=== PATIENT | female | born 1945 | race Caucasian/White ===

== ENCOUNTER 2025-07-26 23:48 | Observation (INO) | payer MEDICARE, OTHER, SELFPAY ==
--- OUTSIDE RECORDS SUMMARY | 2024-03-04 08:30 | XMS_ITS ---
Author Organization [facility] Address [address] [place] [address] Care Team Providers Care Biomedical Scientist Name Role Phone Crystal Garcia APRN Primary Care Provider Unava Gustavo Hubbard Unavailable [phone] Encounters Encounter Location Date Provider Diagnosis [facility] [address] [place] [address], [place] [address] 03/04/2024 Gustavo Silvacailin Plan Of Treatment Next Appt Details Provider Name:Gustavodennis King , 09/01/2025 01:00:00 PM, [address] [place] [address], [place], [address], Progress Notes * LAVONNE BERRIOS DDOB:[birth year] (80 yo F)Acc No.[id number]:03/04/2024 Patient: Yinka SAVANAHSHAUNLAVONNE Provider: Rodger King MD :1945 A ge:78 Y S ex:Female Date:03/04/2024 Address:[address], [place] Pcp:Crystal Garcia APRN Billing Information: * Procedure Codes: * Electronic signature of Pamella King MD on 07/26/2025 at 11:57 PM SALES COMMUNICATIONS MANAGER Sign off status: Pending * Provider: Rodger King MD Date: 0 03/04/2024 Generated for Coral brito/Azucena/Abhinav on: 1 09/25/2024 11:57 PM SALES COMMUNICATIONS MANAGER
--- OUTSIDE RECORDS SUMMARY | 2024-03-04 08:30 | XMS_ITS ---
Author Organization [facility] Address [address] [place] [address] Care Team Providers Care Manager Of Internal Name Role Phone Crystal Garcia APRN Primary Care Provider Unava Gustavo Hubbard Unavailable [phone] Encounters Encounter Location Date Provider Diagnosis [facility] [address] [place] [address], [place] [address] 03/04/2024 Gustavo Silvacailin Plan Of Treatment Next Appt Details Provider Name:Gustavodennis King , 09/01/2025 01:00:00 PM, [address] [place] [address], [place], [address], Progress Notes * LAVONNE BERRIOS DDOB:[birth year] (80 yo F)Acc No.[id number]:03/04/2024 Patient: Yinka SAVANAHSHAUNLAVONNE Provider: Rodger King MD :1945 A ge:78 Y S ex:Female Date:03/04/2024 Address:[address], [place] Pcp:Crystal Garcia APRN Billing Information: * Procedure Codes: * Electronic signature of Pamella King MD on 07/27/2025 at 07:57 AM SECURITY CONTROL CENTER OPERATOR Sign off status: Pending * Provider: Rodger King MD Date: 0 03/04/2024 Generated for Coral brito/Azucena/Abhinav on: 1 09/26/2024 07:57 AM SECURITY CONTROL CENTER OPERATOR
--- OUTSIDE RECORDS SUMMARY | 2024-03-04 09:15 | XMS_ITS ---
Author Organization [facility] Address [address] [facility] [place] [address] Care Team Providers Care Phlebotomy Supervisor Name Role Phone Crystal Garcia APRN Primary Care Provider Unava Gustavo Hubbard Unavailable [phone] REASON FOR VISIT 6M F/U W/ECHO PER OLYA OV 10/03/23 TD Encounters Encounter Location Date Provider Diagnosis [facility] [address] [place] [address] 03/04/2024 Gustavo King Plan Of Treatment Next Appt Details Provider Name:Gustavo King , 09/01/2025 01:00:00 PM, [address] [place], [address], Progress Notes * LAVONNE BERRIOS DDOB:[birth year] (80 yo F)Acc No.[id number]:03/04/2024 Progress Notes Patient: Yinka SAVANAHSHAUNLAVONNE Provider: Rodger King MD :1945 A ge:78 Y S ex:Female Date:03/04/2024 Address:[address], [place] Pcp:Crystal Garcia APRN Subjective: * Chief Complaints: * 6 M F/U W/ECHO PER OLYA OV 10/03/23 TD Billing Information: * Procedure Codes: * Electronic signature of Pamella King MD on 07/27/2025 at 07:57 AM THERMOMETER MAKER Sign off status: Pending * Provider: Rodger King MD Date: 0 03/04/2024 Generated for Coral brito/Azucena/Abhinav on: 1 09/26/2024 07:57 AM THERMOMETER MAKER
--- OUTSIDE RECORDS SUMMARY | 2024-03-04 09:15 | XMS_ITS ---
Author Organization [facility] Address [address] [place] [address] Care Team Providers Care Developmental Behavioral Physician Name Role Phone Crystal Garcia APRN Primary Care Provider Unava Gustavo Hubbard Unavailable [phone] REASON FOR VISIT 6M F/U W/ECHO PER OLYA OV 10/03/23 TD Encounters Encounter Location Date Provider Diagnosis [facility] [address] [place] [address] 03/04/2024 Gustavo King Plan Of Treatment Next Appt Details Provider Name:Gustavo King , 09/01/2025 01:00:00 PM, [address] [place], [address], Progress Notes * LAVONNE BERRIOS DDOB:[birth year] (80 yo F)Acc No.[id number]:03/04/2024 Progress Notes Patient: Yinka SAVANAHSHAUNLAVONNE Provider: Rodger King MD :1945 A ge:78 Y S ex:Female Date:03/04/2024 Address:[address], [place] Pcp:Crystal Garcia APRN Subjective: * Chief Complaints: * 6 M F/U W/ECHO PER OLYA OV 10/03/23 TD Billing Information: * Procedure Codes: * Electronic signature of Pamella King MD on 07/26/2025 at 11:56 PM SUPERVISOR PHOTOENGRAVING Sign off status: Pending * Provider: Rodger King MD Date: 0 03/04/2024 Generated for Coral brito/Azucena/Abhinav on: 1 09/25/2024 11:56 PM SUPERVISOR PHOTOENGRAVING
--- OUTSIDE RECORDS SUMMARY | 2024-04-21 05:00 | XMS_ITS ---
Author Organization [facility] Address [address] [place] [address] Care Team Providers Care Web Development Manager Name Role Phone Crystal Garcia APRN Primary Care Provider Unava Gustavo Hubbard Unavailable [phone] Encounters Encounter Location Date Provider Diagnosis [facility] [address] [place] [address], [place] [address] 04/21/2024 Gustavo King Plan Of Treatment Next Appt Details Provider Name:Gustavo King , 09/01/2025 01:00:00 PM, [address] [place] [address], [place], [address], Progress Notes * LAVONNE BERRIOS DDOB:[birth year] (80 yo F)Acc No.[id number]:04/21/2024 Patient: Yinka LAVONNE CLINE Provider: Rodger King MD :1945 A ge:79 Y S ex:Female Date:04/21/2024 Address:[address], [place] Pcp:Crystal Garcia APRN Check In:11:56 AM CSTCheck O ut:12:23 PM IC DESIGN ENGINEER * Electronic signature of Pamella King MD on 07/27/2025 at 07:57 AM IC DESIGN ENGINEER Sign off status: Pending * Provider: Rodger King MD Date: 0 04/21/2024 Generated for Coral brito/Azucena/Abhinav on: 09/26/2024 07:57 AM IC DESIGN ENGINEER
--- OUTSIDE RECORDS SUMMARY | 2024-04-21 05:00 | XMS_ITS ---
Author Organization [facility] Address [address] [place] [address] Care Team Providers Care Auricular Acupuncturist Name Role Phone Crystal Garcia APRN Primary Care Provider Unava Gustavo Hubbard Unavailable [phone] Encounters Encounter Location Date Provider Diagnosis [facility] [address] [place] [address], [place] [address] 04/21/2024 Gustavo King Plan Of Treatment Next Appt Details Provider Name:Gustavo King , 09/01/2025 01:00:00 PM, [address] [place] [address], [place], [address], Progress Notes * LAVONNE BERRIOS DDOB:[birth year] (80 yo F)Acc No.[id number]:04/21/2024 Patient: Yinka LAVONNE CLINE Provider: Rodger King MD :1945 A ge:79 Y S ex:Female Date:04/21/2024 Address:[address], [place] Pcp:Crystal Garcia APRN Check In:11:56 AM CSTCheck O ut:12:23 PM LANGUAGE ARTS TEACHER * Electronic signature of Pamella King MD on 07/26/2025 at 11:56 PM LANGUAGE ARTS TEACHER Sign off status: Pending * Provider: Rodger King MD Date: 0 04/21/2024 Generated for Coral brito/Azucena/Abhinav on: 1 09/25/2024 11:56 PM LANGUAGE ARTS TEACHER
--- OUTSIDE RECORDS SUMMARY | 2024-04-22 08:30 | XMS_ITS ---
Author Organization [facility] Address [address] [place] [address] Care Team Providers Care Secondary Art Teacher Name Role Phone Crystal Garcia APRN Primary Care Provider UnaGustavo Guerra Unavailable [phone] REASON FOR VISIT Echocardiogram: Test takes 30 minutes Encounters Encounter Location Date Provider Diagnosis [facility] [address] [place] [address], [place] [address] 04/22/2024 Gustavo King Plan Of Treatment Next Appt Details Provider Name:Gustavodennis Silvacailin , 09/01/2025 01:00:00 PM, [address] [place], [address], Progress Notes * LAVONNE BERRIOS DDOB:[birth year] (80 yo F)Acc No.[id number]:04/22/2024 Patient: Yinka LAVONNE CLINE Provider: Rodger King MD :1945 A ge:79 Y S ex:Female Date:04/22/2024 Address:[address], [place] Pcp:Crystal Garcia APRN Subjective: * Chief Complaints: * E chocardiogram: Test takes 30 minutes * Electronic signature of Pamella King MD on 07/27/2025 at 07:58 AM CHEF INSTRUCTOR Sign off status: Pending * Provider: Rodger King MD Date: 0 04/22/2024 Generated for Coral brito/Azucena/Abhinav on: 09/26/2024 07:58 AM CHEF INSTRUCTOR
--- OUTSIDE RECORDS SUMMARY | 2024-04-22 08:30 | XMS_ITS ---
Author Organization [facility] Address [address] [place] [address] Care Team Providers Care Goodwill Representative Name Role Phone Crystal Garcia APRN Primary Care Provider UnaGustavo Guerra Unavailable [phone] REASON FOR VISIT Echocardiogram: Test takes 30 minutes Encounters Encounter Location Date Provider Diagnosis [facility] [address] [place] [address], [place] [address] 04/22/2024 Gustavo King Plan Of Treatment Next Appt Details Provider Name:Gustavodennis Silvacailin , 09/01/2025 01:00:00 PM, [address] [place], [address], Progress Notes * LAVONNE BERRIOS DDOB:[birth year] (80 yo F)Acc No.[id number]:04/22/2024 Patient: Yinka LAVONNE CLINE Provider: Rodger King MD :1945 A ge:79 Y S ex:Female Date:04/22/2024 Address:[address], [place] Pcp:Crystal Garcia APRN Subjective: * Chief Complaints: * E chocardiogram: Test takes 30 minutes * Electronic signature of Pamella King MD on 07/26/2025 at 11:57 PM MERCHANDISING EXECUTION ASSOCIATE Sign off status: Pending * Provider: Rodger King MD Date: 0 04/22/2024 Generated for Coral brito/Azucena/Abhinav on: 1 09/25/2024 11:57 PM MERCHANDISING EXECUTION ASSOCIATE
--- OUTSIDE RECORDS SUMMARY | 2024-05-29 08:15 | XMS_ITS ---
Author Organization [facility] Address [address] [place] [address] Care Team Providers Care Care Provider Name Role Phone Crystal Garcia APRN Primary Care Provider UnaGustavo Guerra Unavailable [phone] REASON FOR VISIT PD F/U, SARAIA 03/27/24 Encounters Encounter Location Date Provider Diagnosis [facility] [address] [place] [address] 05/29/2024 Gustavo King Plan Of Treatment Next Appt Details Provider Name:Gustavo King , 09/01/2025 01:00:00 PM, [address] [place], [address], Progress Notes * LAVONNE BERRIOS DDOB:[birth year] (80 yo F)Acc No.[id number]:05/29/2024 Progress Notes Patient: Yinka LAVONNE CLINE Provider: Rodger King MD :1945 A ge:79 Y S ex:Female Date:05/29/2024 Address:[address], [place] Pcp:Crystal Garcia APRN Subjective: * Chief Complaints: * P D F/U, JLA 03/27/24 Care Plan Details* * Electronic signature of Patpushpa ick Tobbia , MD on 07/26/2025 at 11:56 PM TIMBER SELECTOR Sign off status: Pending * Provider: Rodger King MD Date: 0 05/29/2024 Generated for Coral brito/Azucena/Abhinav on: 09/25/2024 11:56 PM TIMBER SELECTOR
--- OUTSIDE RECORDS SUMMARY | 2024-05-29 08:15 | XMS_ITS ---
Author Organization [facility] Address [address] [place] [address] Care Team Providers Care Dredge Boat Engineer Name Role Phone Crystal Garcia APRN Primary Care Provider UnaGustavo Guerra Unavailable [phone] REASON FOR VISIT PD F/U, SARAIA 03/27/24 Encounters Encounter Location Date Provider Diagnosis [facility] [address] [place] [address] 05/29/2024 Gustavo King Plan Of Treatment Next Appt Details Provider Name:Gustavo King , 09/01/2025 01:00:00 PM, [address] [place], [address], Progress Notes * LAVONNE BERRIOS DDOB:[birth year] (80 yo F)Acc No.[id number]:05/29/2024 Progress Notes Patient: Yinka LAVONNE CLINE Provider: Rodger King MD :1945 A ge:79 Y S ex:Female Date:05/29/2024 Address:[address], [place] Pcp:Crystal Garcia APRN Subjective: * Chief Complaints: * P D F/U, JLA 03/27/24 Care Plan Details* * Electronic signature of Patpushpa ick Tobbia , MD on 07/27/2025 at 07:56 AM RAMP LEAD Sign off status: Pending * Provider: Rodger King MD Date: 0 05/29/2024 Generated for Coral brito/Azucena/Abhinav on: 09/26/2024 07:56 AM RAMP LEAD
--- OUTSIDE RECORDS SUMMARY | 2025-04-21 05:00 | XMS_ITS ---
Author Organization [facility] Address [address] [place] [address] Care Team Providers Care Manager Software Development Name Role Phone Crystal Garcia APRN Primary Care Provider Unava Gustavo Hubbard Unavailable [phone] Encounters Encounter Location Date Provider Diagnosis [facility] [address] [place] [address], [place] [address] 04/21/2025 Gustavo Silvacailin Plan Of Treatment Next Appt Details Provider Name:Gustavodennis King , 09/01/2025 01:00:00 PM, [address] [place] [address], [place], [address], Progress Notes * LAVONNE BERRIOS DDOB:[birth year] (80 yo F)Acc No.[id number]:04/21/2025 Patient: Yinka LAVONNE CLINE Provider: Rodger King MD :1945 A ge:80 Y S ex:Female Date:04/21/2025 Address:[address], [place] Pcp:Crystal Garcia APRN Billing Information: * Procedure Codes: * Electronic signature of Pamella King MD on 07/26/2025 at 11:56 PM INSTALLATION COORDINATOR Sign off status: Pending * Provider: Rodger King MD Date: 0 04/21/2025 Generated for Coral brito/Azucena/Abhinav on: 1 09/25/2024 11:56 PM INSTALLATION COORDINATOR
--- OUTSIDE RECORDS SUMMARY | 2025-04-21 05:00 | XMS_ITS ---
Author Organization [facility] Address [address] [place] [address] Care Team Providers Care Manager Emergency Department Name Role Phone Crystal Garcia APRN Primary Care Provider Unava Gustavo Hubbard Unavailable [phone] Encounters Encounter Location Date Provider Diagnosis [facility] [address] [place] [address], [place] [address] 04/21/2025 Gustavo Silvacailin Plan Of Treatment Next Appt Details Provider Name:Gustavodennis King , 09/01/2025 01:00:00 PM, [address] [place] [address], [place], [address], Progress Notes * LAVONNE BERRIOS DDOB:[birth year] (80 yo F)Acc No.[id number]:04/21/2025 Patient: Yinka LAVONNE CLINE Provider: Rodger King MD :1945 A ge:80 Y S ex:Female Date:04/21/2025 Address:[address], [place] Pcp:Crystal Garcia APRN Billing Information: * Procedure Codes: * Electronic signature of Pamella King MD on 07/27/2025 at 07:56 AM EMBRYOLOGY TEACHER Sign off status: Pending * Provider: Rodger King MD Date: 0 04/21/2025 Generated for Coral brito/Azucena/Abhinav on: 1 09/26/2024 07:56 AM EMBRYOLOGY TEACHER
[2025-07-26 23:49] VITALS: BP 178/76; PULSE 92; RESP 17; TEMP 36.3; O2SAT 96; BMI 22.1
--- NOTE | 2025-07-26 23:56 | ECG_ITS ---
[facility] Test Date: 2025-07-26 Pat Name: Treva Day Department: Room: Gender: Female Hand Straightener: : 1945 Requested By: Casey Lee Order Number: [id number] Ifeanyi MD: Alonso Higuera M.D. Measurements Intervals Leighton Rate: 90 P: 79 WI: 234 QRS: -10 QRSD: 122 T: 185 QT: 350 QTc: 430 Interpretive Statements SINUS RHYTHM WITH FIRST DEGREE AV BLOCK LEFT VENTRICULAR HYPERTROPHY AND ST-T CHANGE [VOLTAGE CRITERIA PLUS ST/T ABNORMALITY] No previous ECG available for comparison Electronically Signed On 07-27-2025 10:40:42 ROOFING SUPERVISOR by Alonso Higuera M.D. [email or web address]
--- OUTSIDE RECORDS SUMMARY | 2025-07-26 23:56 | XMS_ITS | Clinical Summary ---
Author Organization [facility] Address [address] [place] [address] Phone Care Team Providers Care Assistant Executive Housekeeper Name Role Phone Unavailable Primary Care Provider Unavailabl e Allergies Active Allergy Reactions Criticality Noted Date Comments Pomegranate Rash,Itching Low 11/26/2024 Medications atorvastatin (LIPITOR) 80 mg tablet Take 1 Tablet by mouth daily. 07/22/2024 Active bumetanide (BUMEX) 1 mg tablet Take 1 Tablet by mouth 2 times daily. 07/25/2024 Active carvediloL (COREG) 3.125 mg tablet Take 3.125 mg by mouth 2 times daily with meals. 07/22/2024 Active Jardiance 25 mg tablet Take 1 Tablet by mouth daily. 07/22/2024 Active midodrine (PROAMATINE) 10 mg Tablet Take 1 Tablet by mouth 2 times daily. 07/22/2024 Active pantoprazole (PROTONIX) 40 mg Tablet, Delayed Release (E.C.) Take 1 Tablet by mouth daily. 07/22/2024 Active sacubitriL-vals milena (Entresto) 24-26 mg Tablet Take by mouth 2 times daily. Active aspirin (ECOTRIN EC) 81 mg Tablet, Delayed Release (E.C.) Take 81 mg by mouth daily. Active HYDROcodone-alice taminophen (NORCO) 7.5-325 mg TabletIndicatio ns:Post-op pain Take 1 Tablet by mouth every 4 hours as needed for Pain, Moderate. Max Daily Amount: 6 Tablets 20 Tablet 11/28/2024 Active Active Problems Problem Noted Date Diagnosed Date ICD (implantable cardioverter-defibrillator) in place 11/28/2024 ASHD (arteriosclerotic heart disease) 11/28/2024 CHF (congestive heart failure) 11/06/2024 Encounters Date Type Department Care Team Description 07/21/2025 External Device Data STL ABSTRACTION Provider, Abstract 07/16/2025 8:00 AM PHOTOGRAPHIC EQUIPMENT INSPECTOR Procedure visit [facility] [address] [place] [address] Miranda Jeffers MD Congestive heart failure, unspecified HF chronicity, unspecified heart failure type (CMS/HCC) (Primary Dx); Ischemic dilated cardiomyopathy (CMS/HCC); Automatic implantable cardioverter-defibril lator in situ 05/26/2025 External Device Data STL ABSTRACTION Provider, Abstract from Last 3 Months Social History Tobacco Use Types Packs/Day Years Used Date Smoking Tobacco: Former Cigarettes Smokeless Tobacco: Never Tobacco Cessation:Counseling Given: Not Answered Alcohol Use Standard Drinks/Week Comments Never 0 (1 standard drink = 0.6 oz pur e alcohol) Feeling Safe Answer Date Recorded Are you in a relationship wi th someone who hurts you emotionally and/or physically? Patient unable to answer 11/26/2024 Food Insecurity Answer Date Recorded Patient needs follow up regardin 12/25/2024 Transportation Needs Answer Date Record ed Patient needs follow up regardin 12/25/2024 Housing Stability Answer Date Recorded Social/Environmental Concerns No concerns Utility Needs Answer Date Recorded Patient needs follow up regardin 12/25/2024 Comments Unknown Sex and Gender Information Value Date Recorded Sex Assigned at Not on file Legal Sex Female 8:04 AM CDT Gender Identity Not on file Sexual Orientation Not on file Last Filed Vital Signs Vital Sign Reading Time Taken Comments Blood Pressure 102/56 04/13/2025 3:34 PM CDT Pulse 78 04/13/2025 3:34 PM CDT Temperature 36.3 C (97.3 F) 11/28/2024 7:36 AM CDT Respiratory Rate 16 11/28/2024 7:36 AM CDT Oxygen Saturation 98% 04/13/2025 3:34 PM CDT Inhaled Oxygen Concentration - - Weight 57.6 kg (127 lb) 04/13/2025 3:34 PM CDT Height 157.5 cm (5' 2 ) 04/13/2025 3:34 PM CDT Body Mass Index 23.23 04/13/2025 3:34 PM CDT Plan of Treatment Upcoming Encounters Date Type Department Care Team (Late st Contact Info) Description 10/15/2025 3:00 PM PHOTOGRAPHIC EQUIPMENT INSPECTOR Office Visit [facility] [address] [facility] [address] [place] [address] Miranda Jeffers MD [address] [place] [address] Cody Fregoso, CHANA [address] [facility] [address] [place] [address] 01/14/2026 8:00 AM CDT Procedure visit [facility] [address] [facility] [address] [place] [address] Miranda Jeffers MD [address] [facility] [address] [place] [address] Health Maintenance Due Date Last Done Comments DIABETES ANNUAL FOOT EXAM 1965 DIABETES ANNUAL RETINAL EXAM 1965 DIABETES MICROALBUMIN ANNUAL SCREEN 1965 LDL CHOLESTEROL ANNUAL 1965 DTAP/TDAP/TD VACCINES (1 - Tdap) 1966 PNEUMOCOCCAL VACCINE 50+ YEA RS (1 of 2 - PCV) 1966 ZOSTER VACCINE (1 of 2) 1997 OSTEOPOROSIS SCREENING 2012 RSV VACCINE (60+ or ) (1 - 1-dose 75+ series) 2022 INFLUENZA VACCINE (#1) 2025 10/23/2023, 2020 COVID-19 Vaccine (2 - 2024- season) 05/04/202502/2021 DIABETES HBA1C Q 6 MONTHS 08/15/2025 02/13/2025 Medical Devices Implanted Type Area Welder/Fabricator Device Identifier Shelf Expiration Date Model / Serial / Lot Defib Icd Collins Xt Vr Mri [id number] Sngl Chmbr Surescan [id number] - [id number] Implanted:Qty: 1 on 11/27/2024 by Miranda Jeffers MD at [facility] Defibrillator Left: Chest Wall [employer]- CARD RHYTHM MGMT [id number] 05/17/2025 [id number] / [id number] / Lead Sprint Quattro Secure 55cm [id number] - Csc - [id number] Implanted:Qty: 1 on 11/27/2024 by Miranda Jeffers MD at [facility] Lead Left: Chest Wall [employer]- CRM - BULK BUY [id number] 06/09/2026 [id number] / [id number] / Procedures Procedure Name Priority Date/Time Associated Diagnosis Comments AL REM INTERROG PM/LDLS PM/IDS <90 D TECH REVIEW Routine 07/16/2025 3:58 AM PHOTOGRAPHIC EQUIPMENT INSPECTOR Congestive heart failure, unspecified HF chronicity, unspecified heart failure type (CMS/HCC) Ischemic dilated cardiomyopathy (CMS/HCC) Automatic implantable cardioverter-defibril lator in situ AL INTERROGATION EVAL REMOTE </90 D 1/2/STEEL DETAILER LD DFB Routine 07/16/2025 3:58 AM PHOTOGRAPHIC EQUIPMENT INSPECTOR Congestive heart failure, unspecified HF chronicity, unspecified heart failure type (CMS/HCC) Ischemic dilated cardiomyopathy (CMS/HCC) Automatic implantable cardioverter-defibril lator in situ from Last 3 Months Results * AL INTERROGATION EVAL REMOTE </90 D 1/2/STEEL DETAILER LD DFB, AL REM INTERROG PM/LDLS PM/IDS <90 D TECHREVIEW (07/16/2025 3:58 AM PHOTOGRAPHIC EQUIPMENT INSPECTOR) 07/16/2025 3:58 AM PHOTOGRAPHIC EQUIPMENT INSPECTOR Narrative INTERFACE SYSTEM - 07/16/2025 2:46 PM PHOTOGRAPHIC EQUIPMENT INSPECTOR Remote Transmission Report Date of Procedure: July 16, 2025 Events: since 04/13/2025 none Comments: Routine [facility] remote transmission reveals normal single chamber ICD function with stable available threshold and impedance trends. Presenting EGM indicates ventricular sensing, regular rhythm. Follow-up in office as scheduled in October. Then continue 3 month remotes. See attached report for details. Procedure Note Provider, Historical - 07/16/2025 Remote Transmission Report Date of Procedure: July 16, 2025 Events: since 04/13/2025 none Comments: Routine [facility] remote transmission reveals normal single chamber ICDfunction with stable available threshold and impedance trends. Presenting EGM indicates ventricular sensing, regular rhythm. Follow-up in office as scheduled in October. Then continue 3 monthremotes. See attached report for details. us Miranda Jeffers MD CARDIAC SERVICES ORDERABLES E dited Result - Final INTERFACE SYSTEM Refer to clinic/hospital department from Last 3 Months Insurance [facility] Advance Directives For more information, please contact: [phone] * Full Code (Latest Code Status on File) Date Activated Date Inactivated Comments 11/27/2024 9:42 AM 11/28/2024 3:16 PM * Full Code Date Activated Date Inactivated Comments 11/27/2024 5:53 AM 11/27/2024 9:42 AM
--- OUTSIDE RECORDS SUMMARY | 2025-07-26 23:56 | XMS_ITS | Encounter Summary ---
Author Organization [facility] Address [address] [place] [address] Care Team Providers Care Tar Distributor Operator Name Role Phone Unavailable Primary Care Provider Unavailabl e Encounter Details Date Type Department Care Team (Late st Contact Info) Description 07/21/2025 External Device Data [place] ABSTRACTION Provider, Abstract NO ADDRESS ON FILE Social History Tobacco Use Types Packs/Day Years Used Date Smoking Tobacco: Former Cigarettes Smokeless Tobacco: Never Alcohol Use Standard Drinks/Week Comments Never 0 [...] on file Sexual Orientation Not on file documented as of this encounter Plan of Treatment Upcoming Encounters Date Type Department Care Team (Late st Contact Info) Description 10/15/2025 3:00 PM CITY COUNCILMAN Office Visit [facility] [address] [facility] [address] [place] [phone] Miranda Jeffers MD [address] [facility] [address] [place] [phone] Cody Fregoso ANP [address] [facility] [address] [place] [phone] 01/14/2026 8:00 AM CDT Procedure visit [facility] [address] [facility] [address] [place] [phone] Miranda Jeffers MD [address] [facility] [address] [place] [phone] documented as of this encounter Visit Diagnoses Not on filedocumented in this encounter
--- OUTSIDE RECORDS SUMMARY | 2025-07-26 23:57 | XMS_ITS ---
Demographics Address [address] [place] [phone] Home Phone Home Phone Phone Unavailable Preferred Language en Marital Status Unknown Methodist Affiliation Unknown Race White Ethnic Group Unknown Author Organization [facility] Care Team Providers Care Health And Physical Education Professor Name Role Phone Stan Davis Unavailable Unavailable Abbi Streeter Unavailable Unavailable Gonzales Álvarez Unavailable Unavailable Allergies and adverse reactions No Known Allergies Care Team Name Role Address Phone Organization Dates Gonzales Álvarez PCP [address] [place], [address], [place] (Office): : : [facility] 01/03/2023 - 01/05/2023 Stan aDvis [address], [place], [address], [place] (Office): : [facility] 01/03/2023 - 01/05/2023 Abbi Streeter [address], [place], [address], [place] (Office): : [facility] 01/03/2023 - 01/05/2023 Goals Section Goals Description Status Target Date LAVONNE will maintain adequ ate nutritional status as evidenced by no s/sx of malnutrition and no +/- significant weight change through review date. Active 04/04/2023 Resident will participate in activities of choice over the next review period. Active 04/04/2023 Immunizations Immunization Status Vaccine Details Vaccine Code CodeSystem Ge e Notes TB 2 Step Mantoux Skin Test completed tuberculin skin test; unspecified formulation lotNumber: [id number] expiry: 02/08/2025 Mfg: [employer] Given 0.1 ml Left Forearm intradermally Step 1 of Multi-step with next step required 98 CVX created date: 01/04/2023 consent date: 01/04/2023 administere d date: 01/04/2023 Mental Status Section Date Assessment Total Score Description 01/05/2023 CAM 0 No delirium ind icated 01/05/2023 BIMS 13 cognitively int act CAM 0 No delirium ind icated PHQ-9 06 mild depression Insurance Providers Plan of Treatment Section Interventions Intervention Code Code System Display Name Proposed D ate Problems Problem # Description Date of onset Resolved Date Code CodeSystem Concern Status 1 ATHEROSCLEROTIC HEART DISEASE OF [place] CORONARY ARTERY WITHOUT ANGINA PECTORIS 01/04/[id number] active 2 CHRONIC PAIN SYNDROME 01/04/[address] active 3 CHRONIC SYSTOLIC (CONGESTIVE) HEART FAILURE 01/04/[address] active 4 DYSPNEA, UNSPECIFIED 01/04/[address] active 5 ESSENTIAL (PRIMARY) HYPERTENSION 01/04/[address] active 6 HYPERLIPIDEMIA, UNSPECIFIED 01/04/[address] active 7 HYPOTENSION, UNSPECIFIED 01/04/[address] active 8 MUSCLE WASTING AND ATROPHY, NOT ELSEWHERE CLASSIFIED, LEFT LOWER LEG 01/04/[address] active 9 MUSCLE WASTING AND ATROPHY, NOT ELSEWHERE CLASSIFIED, RIGHT LOWER LEG 01/04/[address] active 10 MUSCLE WEAKNESS (GENERALIZED) 01/04/[address] active 11 OTHER ABNORMALITIES OF GAIT AND MOBILITY 01/04/[address] active 12 OTHER LACK OF COORDINATION 01/04/[address] active 13 PERSONAL HISTORY OF COVID-19 01/04/[address] active 14 TYPE 2 DIABETES MELLITUS WITHOUT COMPLICATIONS 01/04/[address] active 15 UNSPECIFIED SYSTOLIC (CONGESTIVE) HEART FAILURE 01/04/[address] active 16 WHEEZING 01/04/[address] active Reason for Referral No Reasons for Referral Entered Social History Social History Observation Description Start Date End Date Code Code System Current Smoking Status Tobacco smoking consumption unknown 742227017 SNOMED CT Sex Assigned At Female 1945 46769-5 [facility] Gender Identity Sexual Orientation Vital Signs Code Code System Vitals Name Values and Units Timing Information 49266-0 [facility] Pain Level Value=0.0 01/05/2023 9279-1 [facility] Respiratory Rate Value=20.0 Units=/m in 01/05/2023 8462-4 [facility] Blood Pressure-Diastolic Value=44 Un its=mmHg 01/05/2023 8480-6 [facility] Blood Pressure-Systolic Value=86 Uni ts=mmHg 01/05/2023 8310-5 [facility] Body Temperature Value=98.0 Units= F 01/05/2023 8867-4 [facility] Heart rate Onrwk=406.0 Units=/min 01/05/2023 91479-0 [facility] O2 % BldC Oximetry Value=96.0 Units= % 01/05/2023 45077-2 [facility] Weight Wlpah=805.2 Units=Lbs 01/2023 2339-0 [facility] Blood Sugar Xgkgl=794.0 Units=mg/dL 01/05/2023 8302-2 [facility] Height Value=63.0 Units=Inches 01/03/2023
--- OUTSIDE RECORDS SUMMARY | 2025-07-26 23:57 | XMS_ITS | Data Portability ---
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 Plan of Treatment Reminders Order Date Submit Date Provider Last Modified By Organization Details Last Modified Time Details Appointments None recorded. Lab microalbumi n/creatinin e, mass ratio, urine 2024 025 [facility] [address] [place], [address], 5 06:26:18 CBC w/ auto diff 2024 025 [facility] [address] [place], [address], 5 04:50:33 HbA1c (hemoglobin A1c), blood 2023 024 [facility] [address] [place], [address], 4 09:33:34 CBC w/ auto diff 2023 024 [facility] [address] [place], [address], 4 09:33:36 CMP, serum or plasma 2023 024 [facility] [address] [place], [address], 4 09:33:33 microalbumi n/creatinin e, mass ratio, urine 2023 024 [email or web address] [facility] [address] [place], [address], 4 12:08:05 urinalysis, dipstick 2023 024 [facility], [address], [place], [address], 4 14:46:56 lipid panel, serum 2023 024 [facility] [address] [place], [address], 4 09:33:33 iron + total iron-bindin g capacity (TIBC), serum 2023 024 [facility] [address] [place], [address], 4 09:33:35 ferritin, serum or plasma 2023 024 [facility] [address] [place], [address], 4 09:33:35 Referral None recorded. Procedures None recorded. Surgeries None recorded. Imaging None recorded. Medication Orders fluticasone propionate 50 mcg/actuati on nasal spray,suspe nsion 2024 025 [facility], [address], [place], [address], 5 17:04:44 amoxicillin 500 mg tablet 2024 025 [facility] [place], [address], [place], [address], 5 05:02:12 tramadol 50 mg tablet 2024 025 [facility] [place], [address], [place], [address], 5 15:13:18 dexamethaso ne sodium phosphate 4 mg/mL injection solution 2024 025 Not available 15:58:15 Kenalog 40 mg/mL suspension for injection 2024 025 [email or web address] Not available 5 11:32:33 albuterol sulfate HFA 90 mcg/actuati on aerosol inhaler 2024 025 [facility] [place], [address], [place], [address], 5 13:03:06 azithromyci n 250 mg tablet 2024 025 [facility] [place], [address], [place], [address], 5 16:02:07 guaifenesin ER 600 mg tablet, extended release 12 hr 2024 025 [facility] [place], [address], [place], [address], 5 16:02:13 Patient TargetsNo targets recorded. Patient Instructions Encounter Date Encounter Id Patient Instructions Last Modified By Organization Details Last Modified Time 08/25/2024 [id number] Patient discharged to self to home in stable condition. Follow up instructions given. [email or web address] Not available 08/25/2024 12:31:51 11/18/2024 [id number] Patient discharged to self/daughter to home in stable condition. Follow up instructions given. CCA completed during encounter today. Please see attached document. [email or web address] Not available 11/18/2024 15:49:55 11/21/2024 [id number] Patient discharged to self/family to home in stable condition. Follow up instructions given. [email or web address] Not available 11/21/2024 12:20:35 02/03/2025 [id number] Patient discharged to self/family to home in stable condition. Follow up instructions given. [email or web address] Not available 02/05/2025 11:37:47 06/01/2025 [id number] Patient discharged to self/family to home in stable condition. Follow up instructions given. [email or web address] Not available 06/02/2025 11:54:23 Reason for Referral None Reported. Results Created Date Observation Date Name Description Value Unit Range Abnormal Flag Note LastModifiedBy Organization Detail LastModifiedTime 08/25/20 24 08/26/2024 COMP METAB OLIC PANEL sodium 141 mEq/L 135-14 6 Not Available [facility] [address] [place], [address], 08/26/2024 09:33:33 08/25/20 24 08/26/2024 COMP METAB OLIC PANEL potassium 4.4 mEq/L 3.5-5. 4 Not Available [facility] [address] [place], [address], 08/26/2024 09:33:33 08/25/20 24 08/26/2024 COMP METAB OLIC PANEL chloride 102 mEq/L 95-107 Not Available [facility] [address] [place], [address], 08/26/2024 09:33:33 08/25/20 24 08/26/2024 COMP METAB OLIC PANEL carbon dioxide 25 mEq/L 19-31 Not Available [facility] [address] [place], [address], 08/26/2024 09:33:33 08/25/20 24 08/26/2024 COMP METAB OLIC PANEL anion gap 14 mEq/L 7-23 Not Available [facility] [address] [place], [address], 08/26/2024 09:33:33 08/25/20 24 08/26/2024 COMP METAB OLIC PANEL glucose non-fasting 170 mg/dL 70-139 high Not Available [facility] [address] [place], [place], [address], 08/26/2024 09:33:33 08/25/20 24 08/26/2024 COMP METAB OLIC PANEL urea nitrogen (BUN) 24 mg/dL 8-23 high Not Available [facility] [address] [place], [place], [address], 08/26/2024 09:33:33 08/25/20 24 08/26/2024 COMP METAB OLIC PANEL creatinine 1.37 mg/dL 0.60-1 .30 high Not Available [facility] [address] [place], [place], [address], 08/26/2024 09:33:33 08/25/20 24 08/26/2024 COMP METAB OLIC PANEL 2020 CKD-epi eGFR-cr 40 mL/mi n/1.7 3m'2 >59 low Not Available [facility] [address], [place], [address], 08/26/2024 09:33:33 08/25/20 24 08/26/2024 COMP METAB OLIC PANEL BUN/creatini ne ratio 18 ratio Not Available [facility] [address], [place], [address], 08/26/2024 09:33:33 08/25/20 24 08/26/2024 COMP METAB OLIC PANEL calcium total 9.9 mg/dL 8.5-10 .5 Not Available [facility] [address] [place], [address], 08/26/2024 09:33:33 08/25/20 24 08/26/2024 COMP METAB OLIC PANEL protein total 7.3 g/dL 6.1-8. 3 Not Available [facility] [address] [place], [address], 08/26/2024 09:33:33 08/25/20 24 08/26/2024 COMP METAB OLIC PANEL albumin 4.6 g/dL 3.5-5. 2 Not Available [facility] [address] [place], [address], 08/26/2024 09:33:33 08/25/20 24 08/26/2024 COMP METAB OLIC PANEL globulin 2.7 g/dL 1.7-4. 3 Not Available [facility] [address] [place], [address], 08/26/2024 09:33:33 08/25/20 24 08/26/2024 COMP METAB OLIC PANEL A/G ratio 1.7 ratio 0.9-2. 8 Not Available [facility] [address] [place], [address], 08/26/2024 09:33:33 08/25/20 24 08/26/2024 COMP METAB OLIC PANEL bilirubin total 0.3 mg/dL 0.0-1. 2 Not Available [facility] [address] [place], [address], 08/26/2024 09:33:33 08/25/20 24 08/26/2024 COMP METAB OLIC PANEL alkaline phosphatase 78 U/L 40-142 Not Available [facility] [address] [place], [address], 08/26/2024 09:33:33 08/25/20 24 08/26/2024 COMP METAB OLIC PANEL AST (SGOT) 14 U/L 9-40 Not Available [facility] [address] [place], [address], 08/26/2024 09:33:33 08/25/20 24 08/26/2024 COMP METAB OLIC PANEL ALT (SGPT) 12 U/L 5-40 Not Available [facility] [address], [place], [address], 08/26/2024 09:33:33 08/25/20 24 08/26/2024 LIPID PROFI LE cholesterol 120 mg/dL <200 Not Available [facility] [address], [place], [address], 08/26/2024 09:33:33 08/25/20 24 08/26/2024 LIPID PROFI LE triglyceride s 191 mg/dL 0-149 high Not Available [facility] [address] [place], [address], 08/26/2024 09:33:33 08/25/20 24 08/26/2024 LIPID PROFI LE HDL cholesterol 34 mg/dL >39 low Not Available [facility] [address], [place], [address], 08/26/2024 09:33:33 08/25/20 24 08/26/2024 LIPID PROFI LE LDL cholesterol 60 mg/dL <100 Not Available [facility] [address] [place], [address], 08/26/2024 09:33:33 08/25/20 24 08/26/2024 LIPID PROFI LE non HDL cholesterol 86 mg/dL <130 Not Available [facility] [address] [place], [place], [address], 08/26/2024 09:33:33 08/25/20 24 08/26/2024 LIPID PROFI LE coronary risk ratio 3.53 <4.44 Comme nt for LIPID PROFI LE Non-H DL Yecenia stero l is a homer r indic ator for cardi ovasc ular risk than LDL-C holes terol for patie nts who have incre ased trigl yceri martin or are non-f astin g. Non-H DL Yecenia stero l: < 130 mg/dL (Opti mal) < 160 mg/dL (Near Optim al/Ab ove Optim al) LDL Yecenia stero l: < 100 mg/dL (Opti mal) < 130 mg/dL (Near Optim al/Ab ove Optim al) Coron jill Risk Ratio : [place] ge for femal es < 4.44 Not Available [facility] [address] [place], [address], 08/26/2024 09:33:33 08/25/20 24 08/26/2024 HEMOG LOBIN A1C hemoglobin A1C 6.3 % 4.2-5. 6 high Not Available [facility] [address] [place], [address], 08/26/2024 09:33:34 08/25/20 24 08/26/2024 HEMOG LOBIN A1C mean glucose est 134 mg/dL Comme nt for HEMOG LOBIN A1C [facility] n Guide lines for Hgb A1c: Predi abete s/Inc rease d risk: 5.7 - 6.4 % Diagn osis of diabe linn: >= 6.5 % (with confi rmati on or appro priat e sympt oms) Assay may be affec jose r by hemog lobin opath ies (sick le cell anemi a, SC disea se, other s) or artif icial ly lower ed by decre ased red cell survi belen (hemo lytic anemi as, blood loss, etc.) . Consi kelvin alter dylan testi ng or labor atory consu ltati on. Not Available [facility] [address] [place], [address], 08/26/2024 09:33:34 08/25/20 24 08/26/2024 IRON AND TIBC iron 99 ug/dL 37-145 Not Available [facility] [address] [place], [address], 08/26/2024 09:33:35 08/25/20 24 08/26/2024 IRON AND TIBC total iron binding 292 ug/dL 250-40 0 Not Available [facility] [address] [place], [address], 08/26/2024 09:33:35 08/25/20 24 08/26/2024 IRON AND TIBC % saturation 34 % 20-50 Not Available [facility] [address] [place], [address], 08/26/2024 09:33:35 08/25/20 24 08/26/2024 PETER TIN ferritin 186 NG/mL 13-200 Not Available [facility] [address], [place], [address], 08/26/2024 09:33:35 08/25/20 24 08/26/2024 CBC WITH DIFFE RENTI AL WBC 8.8 K/uL 4.0-11 .0 Not Available [facility] [address] [place], [address], 08/26/2024 09:33:36 08/25/20 24 08/26/2024 CBC WITH DIFFE RENTI AL RBC 3.84 M/uL 4.00-5 .50 low Not Available [facility] [address] [place], [address], 08/26/2024 09:33:36 08/25/20 24 08/26/2024 CBC WITH DIFFE RENTI AL hemoglobin 11.4 g/dL 12.0-1 6.0 low Not Available [facility] [address] [place], [address], 08/26/2024 09:33:36 08/25/20 24 08/26/2024 CBC WITH DIFFE RENTI AL hematocrit 34.5 % 36.0-4 8.0 low Not Available [facility] [address] [place], [place], [address], 08/26/2024 09:33:36 08/25/20 24 08/26/2024 CBC WITH DIFFE RENTI AL MCV 89.8 fL 78.0-1 02.0 Not Available [facility] [address] [place], [place], [address], 08/26/2024 09:33:36 08/25/20 24 08/26/2024 CBC WITH DIFFE RENTI AL MCH 29.7 pg 25.0-3 5.0 Not Available [facility] [address], [place], [address], 08/26/2024 09:33:36 08/25/20 24 08/26/2024 CBC WITH DIFFE RENTI AL MCHC 33.0 g/dL 30.0-3 8.0 Not Available [facility] [address] [place], [place], [address], 08/26/2024 09:33:36 08/25/20 24 08/26/2024 CBC WITH DIFFE RENTI AL RDW 13.1 % 11.5-1 6.0 Not Available [facility] [address] [place], [place], [address], 08/26/2024 09:33:36 08/25/20 24 08/26/2024 CBC WITH DIFFE RENTI AL platelet count 268 K/uL 150-45 0 Not Available [facility] [address] [place], [place], [address], 08/26/2024 09:33:36 08/25/20 24 08/26/2024 CBC WITH DIFFE RENTI AL abs neutrophils 6.0 K/uL 1.8-7. 0 Not Available [facility] [address] [place], [place], [address], 08/26/2024 09:33:36 08/25/20 24 08/26/2024 CBC WITH DIFFE RENTI AL abs lymphocytes 1.8 K/uL 1.0-4. 0 Not Available [facility] [address] [place], [place], [address], 08/26/2024 09:33:36 08/25/20 24 08/26/2024 CBC WITH DIFFE RENTI AL abs monocytes 0.7 K/uL 0.1-1. 1 Not Available [facility] [address], [place], [address], 08/26/2024 09:33:36 08/25/20 24 08/26/2024 CBC WITH DIFFE RENTI AL abs eosinophils 0.2 K/uL 0.0-0. 5 Not Available [facility] [address], [place], [address], 08/26/2024 09:33:36 08/25/20 24 08/26/2024 CBC WITH DIFFE RENTI AL abs basophils 0.1 K/uL 0.0-0. 3 Not Available [facility] [address] [place], [address], 08/26/2024 09:33:36 08/25/20 24 08/26/2024 CBC WITH DIFFE RENTI AL abs immature grans 0.0 K/uL 0.0-0. 1 Not Available [facility] [address] [place], [address], 08/26/2024 09:33:36 08/25/20 24 08/26/2024 CBC WITH DIFFE RENTI AL neutrophils 68.3 % Not Available [facility] [address] [place], [address], 08/26/2024 09:33:36 08/25/20 24 08/26/2024 CBC WITH DIFFE RENTI AL lymphocytes 20.8 % Not Available [facility] [address] [place], [address], 08/26/2024 09:33:36 08/25/20 24 08/26/2024 CBC WITH DIFFE RENTI AL monocytes 7.8 % Not Available [facility] [address], [place], [address], 08/26/2024 09:33:36 08/25/20 24 08/26/2024 CBC WITH DIFFE RENTI AL eosinophils 2.3 % Not Available [facility] [address], [place], [address], 08/26/2024 09:33:36 08/25/20 24 08/26/2024 CBC WITH DIFFE RENTI AL basophils 0.6 % Not Available [facility] [address], [place], [address], 08/26/2024 09:33:36 08/25/20 24 08/26/2024 CBC WITH DIFFE RENTI AL immature grans 0.2 % Not Available [facility] [address], [place], [address], 08/26/2024 09:33:36 08/25/20 24 08/26/2024 CBC WITH DIFFE RENTI AL nucleated RBCs <1.0 /100_ WBCs <1 Not Available [facility] [address] [place], [address], 08/26/2024 09:33:36 08/25/20 24 08/26/2024 NO SPECI MEN RECEI KIKA test set(s) cancelled MACR Not Available [facility] [address] [place], [address], 08/26/2024 09:33:36 08/25/20 24 08/26/2024 NO SPECI MEN RECEI KIKA test cancelled 1 ALBUMI N/CREA T RATIO Not Available [facility] [address], [place], [address], 08/26/2024 09:33:36 08/25/20 24 08/26/2024 NO SPECI MEN RECEI KIKA test cancelled 2 S/W GISSELL WILL LET THEM KNOW Comme nt for NO SPECI MEN RECEI KIKA Pleas e refer to the [facility] Test [facility]le ction Manua l for speci men submi ssion guide lines . Not Available [facility] [address], [place], [address], 08/26/2024 09:33:36 11/22/19 25 11/22/2024 CBC WITH DIFFE RENTI AL WBC 9.9 K/uL 4.0-11 .0 Not Available [facility] [address], [place], [address], 11/22/2024 04:50:33 11/22/19 25 11/22/2024 CBC WITH DIFFE RENTI AL RBC 4.24 M/uL 4.00-5 .50 Not Available [facility] [address], [place], [address], 11/22/2024 04:50:33 11/22/19 25 11/22/2024 CBC WITH DIFFE RENTI AL hemoglobin 12.2 g/dL 12.0-1 6.0 Not Available [facility] [address] [place], [address], 11/22/2024 04:50:33 11/22/19 25 11/22/2024 CBC WITH DIFFE RENTI AL hematocrit 38.3 % 36.0-4 8.0 Not Available [facility] [address] [place], [address], 11/22/2024 04:50:33 11/22/19 25 11/22/2024 CBC WITH DIFFE RENTI AL MCV 90.3 fL 78.0-1 02.0 Not Available [facility] [address] [place], [address], 11/22/2024 04:50:33 11/22/19 25 11/22/2024 CBC WITH DIFFE RENTI AL MCH 28.8 pg 25.0-3 5.0 Not Available [facility] [address] [place], [address], 11/22/2024 04:50:33 11/22/19 25 11/22/2024 CBC WITH DIFFE RENTI AL MCHC 31.9 g/dL 30.0-3 8.0 Not Available [facility] [address] [place], [address], 11/22/2024 04:50:33 11/22/19 25 11/22/2024 CBC WITH DIFFE RENTI AL RDW 12.1 % 11.5-1 6.0 Not Available [facility] [address] [place], [address], 11/22/2024 04:50:33 11/22/19 25 11/22/2024 CBC WITH DIFFE RENTI AL platelet count 288 K/uL 150-45 0 Not Available [facility] [address] [place], [address], 11/22/2024 04:50:33 11/22/19 25 11/22/2024 CBC WITH DIFFE RENTI AL abs neutrophils 6.9 K/uL 1.8-7. 0 Not Available [facility] [address] [place], [address], 11/22/2024 04:50:33 11/22/19 25 11/22/2024 CBC WITH DIFFE RENTI AL abs lymphocytes 1.9 K/uL 1.0-4. 0 Not Available [facility] [address] [place], [address], 11/22/2024 04:50:33 11/22/19 25 11/22/2024 CBC WITH DIFFE RENTI AL abs monocytes 0.7 K/uL 0.1-1. 1 Not Available [facility] [address] [place], [address], 11/22/2024 04:50:33 11/22/19 25 11/22/2024 CBC WITH DIFFE RENTI AL abs eosinophils 0.4 K/uL 0.0-0. 5 Not Available [facility] [address] [place], [address], 11/22/2024 04:50:33 11/22/19 25 11/22/2024 CBC WITH DIFFE RENTI AL abs basophils 0.0 K/uL 0.0-0. 3 Not Available [facility] [address] [place], [address], 11/22/2024 04:50:33 11/22/19 25 11/22/2024 CBC WITH DIFFE RENTI AL abs immature grans 0.0 K/uL 0.0-0. 1 Not Available [facility] [address] [place], [address], 11/22/2024 04:50:33 11/22/19 25 11/22/2024 CBC WITH DIFFE RENTI AL neutrophils 69.6 % Not Available [facility] [address] [place], [place], [address], 11/22/2024 04:50:33 11/22/19 25 11/22/2024 CBC WITH DIFFE RENTI AL lymphocytes 19.1 % Not Available [facility] [address] [place], [place], [address], 11/22/2024 04:50:33 11/22/19 25 11/22/2024 CBC WITH DIFFE RENTI AL monocytes 6.8 % Not Available [facility] [address] [place], [address], 11/22/2024 04:50:33 11/22/19 25 11/22/2024 CBC WITH DIFFE RENTI AL eosinophils 3.8 % Not Available [facility] [address] [place], [address], 11/22/2024 04:50:33 11/22/19 25 11/22/2024 CBC WITH DIFFE RENTI AL basophils 0.5 % Not Available [facility] [address] [place], [address], 11/22/2024 04:50:33 11/22/19 25 11/22/2024 CBC WITH DIFFE RENTI AL immature grans 0.2 % Not Available [facility] [address] [place], [address], 11/22/2024 04:50:33 11/22/19 25 11/22/2024 CBC WITH DIFFE RENTI AL nucleated RBCs <1.0 /100_ WBCs <1 Not Available [facility] [address], [place], [address], 11/22/2024 04:50:33 02/04/20 25 02/04/2025 ALBUM IN/CR EAT RATIO albumin urine 1.2 mg/dL Not Available [facility] [address], [place], [address], 02/04/2025 06:26:18 02/04/20 25 02/04/2025 ALBUM IN/CR EAT RATIO creatinine-r andom urine 63 mg/dL 28-217 Not Available [facility] [address], [place], [address], 02/04/2025 06:26:18 02/04/20 25 02/04/2025 ALBUM IN/CR EAT RATIO albumin/crea t ratio 19 mg/g_ crea <30 Not Available [facility] [address] [place], [address], 02/04/2025 06:26:18 02/14/20 25 02/14/2025 COMP METAB OLIC PANEL sodium 139 mEq/L 135-14 6 Not Available [facility] [address] [place], [address], 02/14/2025 06:27:13 02/14/20 25 02/14/2025 COMP METAB OLIC PANEL potassium 4.5 mEq/L 3.5-5. 4 Not Available [facility] [address] [place], [address], 02/14/2025 06:27:13 02/14/20 25 02/14/2025 COMP METAB OLIC PANEL chloride 101 mEq/L 95-107 Not Available [facility] [address] [place], [address], 02/14/2025 06:27:13 02/14/20 25 02/14/2025 COMP METAB OLIC PANEL carbon dioxide 22 mEq/L 19-31 Not Available [facility] [address], [place], [address], 02/14/2025 06:27:13 02/14/20 25 02/14/2025 COMP METAB OLIC PANEL anion gap 16 mEq/L 7-23 Not Available [facility] [address], [place], [address], 02/14/2025 06:27:13 02/14/20 25 02/14/2025 COMP METAB OLIC PANEL glucose non-fasting 94 mg/dL 70-139 Not Available [facility] [address], [place], [address], 02/14/2025 06:27:13 02/14/20 25 02/14/2025 COMP METAB OLIC PANEL urea nitrogen (BUN) 28 mg/dL 8-23 high Not Available [facility] [address] [place], [address], 02/14/2025 06:27:13 02/14/20 25 02/14/2025 COMP METAB OLIC PANEL creatinine 1.37 mg/dL 0.60-1 .30 high Not Available [facility] [address] [place], [place], [address], 02/14/2025 06:27:13 02/14/20 25 02/14/2025 COMP METAB OLIC PANEL 2020 CKD-epi eGFR-cr 40 mL/mi n/1.7 3m'2 >59 low Not Available [facility] [address] [place], [address], 02/14/2025 06:27:13 02/14/20 25 02/14/2025 COMP METAB OLIC PANEL BUN/creatini ne ratio 20 ratio Not Available [facility] [address] [place], [address], 02/14/2025 06:27:13 02/14/20 25 02/14/2025 COMP METAB OLIC PANEL calcium total 9.5 mg/dL 8.5-10 .5 Not Available [facility] [address] [place], [address], 02/14/2025 06:27:13 02/14/20 25 02/14/2025 COMP METAB OLIC PANEL protein total 6.9 g/dL 6.1-8. 3 Not Available [facility] [address] [place], [address], 02/14/2025 06:27:13 02/14/20 25 02/14/2025 COMP METAB OLIC PANEL albumin 4.3 g/dL 3.5-5. 2 Not Available [facility] [address] [place], [address], 02/14/2025 06:27:13 02/14/20 25 02/14/2025 COMP METAB OLIC PANEL globulin 2.6 g/dL 1.7-4. 3 Not Available [facility] [address] [place], [address], 02/14/2025 06:27:13 02/14/20 25 02/14/2025 COMP METAB OLIC PANEL A/G ratio 1.7 ratio 0.9-2. 8 Not Available [facility] [address] [place], [address], 02/14/2025 06:27:13 02/14/20 25 02/14/2025 COMP METAB OLIC PANEL bilirubin total 0.3 mg/dL 0.0-1. 2 Not Available [facility] [address] [place], [address], 02/14/2025 06:27:13 02/14/20 25 02/14/2025 COMP METAB OLIC PANEL alkaline phosphatase 89 U/L 40-142 Not Available [facility] [address], [place], [address], 02/14/2025 06:27:13 02/14/20 25 02/14/2025 COMP METAB OLIC PANEL AST (SGOT) 19 U/L 9-40 Not Available [facility] [address] [place], [address], 02/14/2025 06:27:13 02/14/20 25 02/14/2025 COMP METAB OLIC PANEL ALT (SGPT) 15 U/L 5-40 Not Available [facility] [address] [place], [address], 02/14/2025 06:27:13 02/14/20 25 02/14/2025 LIPID PROFI LE cholesterol 133 mg/dL <200 Not Available [facility] [address] [place], [address], 02/14/2025 06:27:14 02/14/20 25 02/14/2025 LIPID PROFI LE triglyceride s 209 mg/dL 0-149 high Not Available [facility] [address] [place], [address], 02/14/2025 06:27:14 02/14/20 25 02/14/2025 LIPID PROFI LE HDL cholesterol 30 mg/dL >39 low Not Available [facility] [address] [place], [address], 02/14/2025 06:27:14 02/14/20 25 02/14/2025 LIPID PROFI LE LDL cholesterol 73 mg/dL <100 Not Available [facility] [address] [place], [address], 02/14/2025 06:27:14 02/14/20 25 02/14/2025 LIPID PROFI LE non HDL cholesterol 103 mg/dL <130 Not Available [facility] [address] [facility] [place], [address], 02/14/2025 06:27:14 02/14/20 25 02/14/2025 LIPID PROFI LE coronary risk ratio 4.43 <4.44 Comme nt for LIPID PROFI LE Non-H DL Yecenia stero l is a homer r indic ator for cardi ovasc ular risk than LDL-C holes terol for patie nts who have incre ased trigl yceri martin or are non-f astin g. Non-H DL Yecenia stero l: < 130 mg/dL (Opti mal) < 160 mg/dL (Near Optim al/Ab ove Optim al) LDL Yecenia stero l: < 100 mg/dL (Opti mal) < 130 mg/dL (Near Optim al/Ab ove Optim al) Coron jill Risk Ratio : [place] ge for femal es < 4.44 Not Available [facility] [address] [place], [address], 02/14/2025 06:27:14 02/14/20 25 02/14/2025 HEMOG LOBIN A1C hemoglobin A1C 6.2 % 4.2-5. 6 high Not Available [facility] [address] [place], [address], 02/14/2025 06:27:14 02/14/20 25 02/14/2025 HEMOG LOBIN A1C mean glucose est 131 mg/dL Comme nt for HEMOG LOBIN A1C [facility] n Guide lines for Hgb A1c: Predi abete s/Inc rease d risk: 5.7 - 6.4 % Diagn osis of diabe linn: >= 6.5 % (with confi rmati on or appro priat e sympt oms) Assay may be affec jose r by hemog lobeliza bliss ies (sick le cell anemi a, SC disea se, other s) or artif icial ly lower ed by decre ased red cell survi belen (hemo lytic anemi as, blood loss, etc.) . Consi kelvin alter dylan testi ng or labor atory consu ltati on. Not Available [facility] [address] [place], [address], 02/14/2025 06:27:14 02/14/20 25 02/14/2025 IRON AND TIBC iron 45 ug/dL 37-145 Not Available [facility] [address] [place], [address], 02/14/2025 06:27:15 02/14/20 25 02/14/2025 IRON AND TIBC total iron binding 300 ug/dL 250-40 0 Not Available [facility] [address] [place], [address], 02/14/2025 06:27:15 02/14/20 25 02/14/2025 IRON AND TIBC % saturation 15 % 20-50 low Not Available [facility] [address] [place], [address], 02/14/2025 06:27:15 02/14/20 25 02/14/2025 PETER TIN ferritin 146 NG/mL 13-200 Not Available [facility] [address] [place], [address], 02/14/2025 06:27:15 02/14/20 25 02/14/2025 THYRO ID STIM HORMO NE TSH 2.7 mIU/L 0.40-4 .1 Not Available [facility] [address] [place], [address], 02/14/2025 06:27:16 02/14/20 25 02/14/2025 CBC WITH DIFFE RENTI AL WBC 7.3 K/uL 4.0-11 .0 Not Available [facility] [address] [place], [address], 02/14/2025 06:27:16 02/14/20 25 02/14/2025 CBC WITH DIFFE RENTI AL RBC 3.84 M/uL 4.00-5 .50 low Not Available [facility] [address] [place], [address], 02/14/2025 06:27:16 02/14/20 25 02/14/2025 CBC WITH DIFFE RENTI AL hemoglobin 11.1 g/dL 12.0-1 6.0 low Not Available [facility] [address] [place], [address], 02/14/2025 06:27:16 02/14/20 25 02/14/2025 CBC WITH DIFFE RENTI AL hematocrit 34.9 % 36.0-4 8.0 low Not Available [facility] [address] [place], [address], 02/14/2025 06:27:16 02/14/20 25 02/14/2025 CBC WITH DIFFE RENTI AL MCV 90.9 fL 78.0-1 02.0 Not Available [facility] [address] [place], [address], 02/14/2025 06:27:16 02/14/20 25 02/14/2025 CBC WITH DIFFE RENTI AL MCH 28.9 pg 25.0-3 5.0 Not Available [facility] [address] [place], [address], 02/14/2025 06:27:16 02/14/20 25 02/14/2025 CBC WITH DIFFE RENTI AL MCHC 31.8 g/dL 30.0-3 8.0 Not Available [facility] [address] [place], [address], 02/14/2025 06:27:16 02/14/20 25 02/14/2025 CBC WITH DIFFE RENTI AL RDW 13.7 % 11.5-1 6.0 Not Available [facility] [address] [place], [place], [address], 02/14/2025 06:27:16 02/14/20 25 02/14/2025 CBC WITH DIFFE RENTI AL platelet count 231 K/uL 150-45 0 Not Available [facility] [address] [place], [place], [address], 02/14/2025 06:27:16 02/14/20 25 02/14/2025 CBC WITH DIFFE RENTI AL abs neutrophils 4.1 K/uL 1.8-7. 0 Not Available [facility] [address] [place], [place], [address], 02/14/2025 06:27:16 02/14/20 25 02/14/2025 CBC WITH DIFFE RENTI AL abs lymphocytes 2.1 K/uL 1.0-4. 0 Not Available [facility] [address] [place], [place], [address], 02/14/2025 06:27:16 02/14/20 25 02/14/2025 CBC WITH DIFFE RENTI AL abs monocytes 0.7 K/uL 0.1-1. 1 Not Available [facility] [address] [place], [address], 02/14/2025 06:27:16 02/14/20 25 02/14/2025 CBC WITH DIFFE RENTI AL abs eosinophils 0.3 K/uL 0.0-0. 5 Not Available [facility] [address] [place], [address], 02/14/2025 06:27:16 02/14/20 25 02/14/2025 CBC WITH DIFFE RENTI AL abs basophils 0.1 K/uL 0.0-0. 3 Not Available [facility] [address] [place], [address], 02/14/2025 06:27:16 02/14/20 25 02/14/2025 CBC WITH DIFFE RENTI AL abs immature grans 0.0 K/uL 0.0-0. 1 Not Available [facility] [address] [place], [address], 02/14/2025 06:27:16 02/14/20 25 02/14/2025 CBC WITH DIFFE RENTI AL neutrophils 55.7 % Not Available [facility] [address] [place], [address], 02/14/2025 06:27:16 02/14/20 25 02/14/2025 CBC WITH DIFFE RENTI AL lymphocytes 29.4 % Not Available [facility] [address] [place], [address], 02/14/2025 06:27:16 02/14/20 25 02/14/2025 CBC WITH DIFFE RENTI AL monocytes 9.6 % Not Available [facility] [address] [place], [address], 02/14/2025 06:27:16 02/14/20 25 02/14/2025 CBC WITH DIFFE RENTI AL eosinophils 4.0 % Not Available [facility] [address] [place], [address], 02/14/2025 06:27:16 02/14/20 25 02/14/2025 CBC WITH DIFFE RENTI AL basophils 1.0 % Not Available [facility] [address] [place], [address], 02/14/2025 06:27:16 02/14/20 25 02/14/2025 CBC WITH DIFFE RENTI AL immature grans 0.3 % Not Available [facility] [address] [place], [address], 02/14/2025 06:27:16 02/14/20 25 02/14/2025 CBC WITH DIFFE RENTI AL nucleated RBCs <1.0 /100_ WBCs <1 Not Available [facility] [address], [place], [address], 02/14/2025 06:27:16 Result Notes None recorded. Problems Name Problem SNOMED Code Status Onset Date Resolution Date Notes Provider Name and Address Organization Details Recorded Time Hyperlipi demia 75020205 Active 2022 Crystal Garcia APRN [address], [place], [address], [facility] 3 14:16:19 Diabetes mellitus 52144630 Completed 202211/04/2023 Crystal Garcia APRN [address], [place], [address], [facility] 4 20:21:12 Myocardia l infarctio n 43701902 Completed 202212/31/2022 Crystal Garcia APRN [address], [place], [address], [facility] 3 14:16:48 History of heart block 749632046125 101 Completed 202211/04/2023 Crystal Garcia APRN [address], [place], [address], [facility] 4 20:21:12 Loss of appetite 50503203 Completed 202211/04/2023 Crystal Garcia APRN [address], [place], [address], [facility] 4 20:21:12 Nausea and vomiting 05615271 Completed 202204/17/2023 Crystal Garcia APRN [address], [place], [address], [facility] 4 23:25:31 Constipat ion 19550730 Active 2022 Crystal Garcia APRN [address], [place], [address], [facility] 3 15:11:39 Muscle weakness 29295273 Active 2022 Crystla Garcia APRN [address], [place], [address], [facility] 3 15:11:39 Malaise and fatigue 855399004 Completed 202204/17/2023 Crystal Garcia APRN [address], [place], [address], [facility] 3 15:11:58 Type 2 diabetes mellitus 55800920 Active 2022 Crystal Garcia APRN [address], [place], [address], [facility] 3 15:11:39 Angina co-occurr ent and due to coronary arteriosc lerosis 296226032223 26483 Completed 202204/17/2023 Crystal Garcia APRN [address], [place], [address], [facility] 3 15:11:58 Acute non-ST segment elevation myocardia l infarctio n 849038438 Completed 202204/17/2023 Crystal Garcia APRN [address], [place], [address], [facility] 3 15:11:58 Hyperglyc emia due to type 2 diabetes mellitus 808260497331 109 Completed 202204/17/2023 Crystal Garcia APRN [address], [place], [address], [facility] 3 15:11:58 Congestiv e heart failure 10441534 Active 2022 Crystal Garcia APRN [address], [place], [address], [facility] 3 15:11:39 Generaliz ed anxiety disorder 25682584 Active 2022 Crystal Garcia APRN [address], [place], [address], [facility] 3 15:11:39 Chest wall pain 756254759 Completed 202204/17/2023 Crystal Garcia APRN [address], [place], [address], [facility] 3 15:11:58 Flatulent dyspepsia 493911701 Completed 202211/04/2023 Crystal Garcia APRN [address], [place], [address], [facility] 4 20:21:12 Gastroeso phageal reflux disease without esophagit is 229059053 Active 2022 Crystal Garcia APRN [address], [place], [address], [facility] 3 15:11:39 Essential hypertens ion 95878026 Active 2022 Crystal Garcia APRN [address], [place], [address], [place] [facility] 3 15:11:39 Intractab le nausea and vomiting 515279368 Completed 202204/17/2023 Crystal Garcia APRN [address], [place], [address], [place] [facility] 3 15:11:58 Low blood pressure 71790247 Completed 202204/17/2023 Crystal Garcia APRN [address], [place], [address], [place] [facility] 3 15:11:58 Pleural effusion 88814662 Active 2022 left Gissell rod, [place] [facility] 3 15:27:10 Dyspnea 497715964 Completed 202211/04/2023 Crystal Garcia APRN [address], [place], [address], [place] [facility] 4 20:21:12 Cough 19570222 Completed 202211/04/2023 Crystal Garcia APRN [address], [place], [address], [place] [facility] 4 20:15:57 Viral syndrome 188992555 Completed 202211/04/2023 Crystal Garcia APRN [address], [place], [address], [place] [facility] 4 20:15:57 Pain of multiple joints 35232037 Completed 202311/04/2023 Crystal Garcia APRN [address], [place], [address], [place] [facility] 4 20:26:31 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 8779293 Active 2023 Crystal [address]LAYLA [address], [place], [address], [facility] 4 20:25:01 Dependenc e on supplemen yeny oxygen 875962411041 Active 2023 [address], [place], [address], [facility] 4 20:25:01 Pain of multiple joints 16093059 Active 2023 Crystal SnowLAYLA parnell [address], [place], [address], [facility] 4 20:26:31 Atheroscl erosis of coronary artery without angina pectoris 419974651628 103 Active 2023 Crystal SnowLAYLA parnell [address], [place], [address], [facility] 4 20:26:31 Iron deficienc y 99933162 Active 2023 Crystal SnowLAYLA parnell [address], [place], [address], [facility] 4 21:57:45 Nausea and vomiting 88693092 Active 2023 Crystal LAYLA Garcia [address], [place], [address], [facility] 4 23:25:31 Pain of shoulder region 13592916 Active 2023 [address]Z [address], [place], [address], [facility] 4 15:30:19 Neck pain 22028209 Active 2023 [address]Z [address], [place], [address], [facility] 4 15:30:49 Iron deficienc y anemia 74120868 Active 2023 DON HERRERA N, P[employer]AGING [employer] OPERATOR [address], [place], [address], [facility] 4 12:31:38 Projectil e vomiting 2851873 Active 2023 DON HOUSTONLAUREN N, P[employer]AGING LINE OPERATOR [address], [place], [address], [facility] 4 12:31:40 Acute bronchiti s 78521610 Active 2024 DON HOUSTONLAUREN N, P[employer]AGING LINE OPERATOR [address], [place], [address], [facility] 5 12:19:12 Occipital headache 885908 Active 2024 DON HOUSTONLAUREN N, P[employer]AGING LINE OPERATOR [address], [place], [address], [facility] 5 11:54:15 Problem Notes None recorded. Procedures Surgical History Date Name Laterality Status Provider Name and Address Organization Details Recorded Time 12/28/19 CABG completed Crystal Garcia, [employer]ING [employer] OPERATOR [address], [place], [address], [facility] 01/07/2023 23:20:38 11/27/19 cardiac catheterization completed [facility] 12/28/2022 15:13:13 Hysterectomy completed [facility] 12/28/2022 15:13:21 Imaging Results None recorded. Procedure Notes None recorded. Medical Equipment None Reported. Allergies No known drug allergies Medications Name Sig Start Date Stop Date Status Note LastModified by Organization Details LastModified Time amoxicill in 500 mg capsule TAKE 2 CAPSULES BY MOUTH EVERY TWELVE HOURS FOR 10 DAYS active Not Available Not Available No t Available furosemid e 40 mg tablet 12/28 completed Not Available Not Available Not Available aspirin 81 mg capsule Take 1 capsule every day by oral route. active not been on Not Available Not Available Not Available atorvasta tin 80 mg tablet Take 1 tablet every day by oral route for 90 days. 2024 active Not Available Not Available Not Avai lable Colace 100 mg capsule Take 1 capsule every day by oral route. 04/12 completed Not Available Not Available Not Available venlafaxi ne ER 37.5 mg capsule,e xtended release 24 hr TAKE ONE CAPSULE BY MOUTH EVERY DAY 01/30 completed Not Available Not Available Not Available carvedilo l 6.25 mg tablet TAKE 1 TABLET BY MOUTH TWICE DAILY WITH FOOD active Not Available Not Available No t Available ketoconaz ole 2 % shampoo APPLY TO THE AFFECTED AREA(S) topicall y, lather, LEAVE inplace FOR 5 minutes, AND THEN RINSE of with water ONCE DAILY 04/24 completed Not Available Not Available Not Available azithromy kanu 250 mg tablet TAKE 2 TABLETS BY MOUTH ON DAY 1, THEN TAKE 1 TABLET DAILY ON DAYS 2-5 02/03 completed Not Available Not Available Not Available pravastat in 40 mg tablet TAKE 1 TABLET BY MOUTH AT NIGHT 12/28 completed Not Available Not Available Not Available benzonata te 200 mg capsule TAKE ONE CAPSULE BY MOUTH THREE TIMES DAILY FOR 5 DAYS 10/31 completed Not Available Not Available Not Available hydrocodo ne 5 mg-acetam inophen 325 mg tablet Take 1 tablet every 6 hours by oral route as needed for 30 days. 04/12 completed Not Available Not Available Not Available sucralfat e 1 gram tablet TAKE ONE TABLET BY MOUTH FOUR TIMES DAILY FOR 14 DAYS 01/30 completed Not Available Not Available Not Available midodrine 5 mg tablet TAKE 1 TABLET BY MOUTH TWICE DAILY 07/09 completed Not Available Not Available Not Available Accu-Chek Softclix Lancets USE DIRECTED TO CHECK BLOOD SUGAR TWICE DAILY active Not Available Not Available No t Available tramadol 50 mg tablet TAKE 1 TABLET BY MOUTH EVERY 8 HOURS NEEDED active Not Available Not Available No t Available spironola ctone 25 mg tablet TAKE ONE TABLET BY MOUTH EVERY DAY 07/09 completed Not Available Not Available Not Available amoxicill in 500 mg tablet Take 2 tablets every 12 hours by oral route for 10 days. 06/18 completed Not Available Not Available Not Available carvedilo l 3.125 mg tablet TAKE 1 TABLET BY MOUTH TWICE DAILY WITH FOOD 06/01 completed Not Available Not Available Not Available ondansetr on 8 mg disintegr ating tablet DISSOLVE ONE TABLET ON TONGUE TWICE DAILY FOR 14 DAYS 04/12 completed Not Available Not Available Not Available bisoprolo l fumarate 5 mg tablet TAKE 1 TABLET BY MOUTH ONCE DAILY 01/31 completed Not Available Not Available Not Available Kenalog 40 mg/mL suspensio n for injection Take 40 mg every day by injectio n route for 1 day. 02/05 completed Not Available Not Available Not Available cyprohept adine 4 mg tablet TAKE ONE TABLET BY MOUTH THREE TIMES DAILY 11/03 completed Not Available Not Available Not Available alprazola m 0.25 mg tablet Take 1 tablet every 8 hours by oral route as needed for 30 days. 01/31 completed Not Available Not Available Not Available aspirin 325 mg tablet,de layed release Take one tablet daily 01/09 completed Not Available Not Available Not Available hydrocodo ne 7.5 mg-acetam inophen 325 mg tablet TAKE 1 TABLET BY MOUTH EVERY 4 HOURS NEEDED FOR PAIN. max 6 TABLETS DAILY 06/01 completed Not Available Not Available Not Available pantopraz ole 40 mg tablet,de layed release TAKE 1 TABLET BY MOUTH EVERY DAY 2024 active Not Available Not Available Not Avai lable metformin 1,000 mg tablet TAKE 1 TABLET BY MOUTH TWICE DAILY active Not Available Not Available No t Available lidocaine 5 % topical patch 03/14 completed Not Available Not Available Not Available lansopraz ole 15 mg capsule,d elayed release TAKE 1 CAPSULE BY MOUTH ONCE DAILY BEFORE A MEAL 12/28 completed Not Available Not Available Not Available bumetanid e 1 mg tablet TAKE 1 TABLET BY MOUTH TWICE DAILY active Not Available Not Available No t Available hydrocort isone 2.5 % topical cream APPLY A THIN LAYER TO THE AFFECTED AREA(S) BY TOPICAL ROUTE 2 TIMES PER DAY 04/24 completed Not Available Not Available Not Available furosemid e 20 mg tablet TAKE THREE TABLETS BY MOUTH EVERY DAY 07/09 completed Not Available Not Available Not Available metoprolo l succinate ER 25 mg tablet,ex tended release 24 hr TAKE ONE TABLET BY MOUTH EVERY DAY active Not Available Not Available No t Available dexametha sone sodium phosphate 4 mg/mL injection solution Inject 1 mL every day by intramus cular route for 1 day. 02/03 completed Not Available Not Available Not Available albuterol sulfate HFA 90 mcg/actua tion aerosol inhaler INHALE TWO PUFFS BY MOUTH EVERY 4 TO 6 HOURS NEEDED FOR SHORTNES S OF BREATH / wheezing / cough active Not Available Not Available No t Available ketoconaz ole 2 % topical cream APPLY TO THE AFFECTED AREA(S) topicall y ONCE DAILY 04/24 completed Not Available Not Available Not Available ondansetr on 4 mg disintegr ating tablet DISSOLVE 1 TABLET ON TONGUE TWICE DAILY NEEDED FOR nausea FOR 7 DAYS 04/24 completed Not Available Not Available Not Available fluticaso ne propionat e 50 mcg/actua tion nasal spray,arina pension USE 1 SPRAY IN EACH NOSTRIL DAILY active Not Available Not Available No t Available lisinopri l 2.5 mg tablet Take 1 tablet every day by oral route. 03/14 completed Not Available Not Available Not Available midodrine 10 mg tablet TAKE 1 TABLET BY MOUTH THREE TIMES DAILY active Not Available Not Available No t Available megestrol 625 mg/5 mL (125 mg/mL) oral suspensio n take 5 ML BY MOUTH EVERY 24 HOURS 11/03 completed Not Available Not Available Not Available FeroSul 325 mg (65 mg iron) tablet TAKE 1 TABLET BY MOUTH EVERY DAY 06/01 completed stopped due to N&V Not Available Not Available Not Available Tradjenta 5 mg tablet Take one tablet daily 01/09 completed Not Available Not Available Not Available guaifenes in ER 600 mg tablet, extended release 12 hr TAKE 1 TABLET BY MOUTH EVERY TWELVE HOURS NEEDED FOR COUGH/CH EST CONGESTI ON FOR 7 DAYS 02/03 completed Not Available Not Available Not Available Jardiance 10 mg tablet TAKE 1 TABLET BY MOUTH EVERY DAY 04/24 completed Not Available Not Available Not Available Jardiance 25 mg tablet TAKE 1 TABLET BY MOUTH ONCE DAILY active Not Available Not Available No t Available ProAir RespiClic k 90 mcg/actua tion breath activated 04/24 completed Not Available Not Available Not Available sacubitri l 24 mg-valsar eldridge 26 mg tablet TAKE 1 TABLET BY MOUTH TWICE DAILY active Not Available Not Available No t Available Accu-Chek Guide test strips USE TO TEST BLOOD SUGAR TWICE DAILY active Not Available Not Available No t Available Accu-Chek Guide Glucose Meter USE DIRECTED TO CHECK BLOOD SUGAR TWICE DAILY active Not Available Not Available No t Available Vitals Date Recorded Body height Body mass index (BMI) Body weight Heart rate Respiratory rate Body temperature Oxygen saturation Systolic And Diastolic Provider Name and Address Organization Details Last Updated DateTime 5 162.56 cm 21.3 kg/m2 59523.4 5 g 70 /min 18 /min 98 [degF] 98 % 124/64 mm[Hg] Pearl Arriola [facility] 5 15:03:05 Date Recorded Systolic And Diastolic Provider Name and Address Organization Details Last Updated DateTime 11/21/2024 100/54 mm[Hg] DON COLE , LAYLA [address], [place], [address], [facility] 11/21/2024 12:21:42 Date Recorded Body height Body mass index (BMI) Body weight Body temperature Respiratory rate Heart rate Oxygen saturation Provider Name and Address Organization Details Last Updated DateTime 5 162.56 cm 20.9 kg/m2 02311.2 7 g 98.1 [degF] 18 /min 76 /min 96 % Pearl Arriola [facility] 5 11:56:57 Date Recorded Body height Body mass index (BMI) Body weight Heart rate Respiratory rate Body temperature Oxygen saturation Systolic And Diastolic Provider Name and Address Organization Details Last Updated DateTime 5 162.56 cm 21.1 kg/m2 99537.8 6 g 71 /min 18 /min 97.9 [degF] 97 % 132/62 mm[Hg] Pearl Arriola [facility] 5 16:07:11 Date Recorded Body height Body mass index (BMI) Body weight Heart rate Respiratory rate Body temperature Oxygen saturation Systolic And Diastolic Provider Name and Address Organization Details Last Updated DateTime 5 162.56 cm 21.7 kg/m2 33735.3 6 g 72 /min 18 /min 98 [degF] 97 % 124/60 mm[Hg] Pearl Leeimer [facility] 5 15:35:56 Date Recorded Body height Body mass index (BMI) Body weight Heart rate Respiratory rate Body temperature Oxygen saturation Systolic And Diastolic Provider Name and Address Organization Details Last Updated DateTime 4 162.56 cm 20.8 kg/m2 19821.6 8 g 70 /min 19 /min 97.9 [degF] 97 % 110/54 mm[Hg] Pearl Arriola [facility] 4 11:10:07 Social History Question Answer Notes LastModified by [employer] Details LastModified Time Tobacco Smoking Status Former Smoker Gissell rod, [facility] 12/28/2022 15:17:37 In The 14 Days Before Symptom Onset, Have You Had Close Contact With A Laboratory-confirm ed COVID-19 While That Case Was Ill? No Information n ot available 08/25/2024 In The 14 Days Before Symptom Onset, Have You Had Close Contact With A Person Who Is Under Investigation For COVID-19 While That Person Was Ill? No Information not available 08/25/2024 Have You Been To An Area Known To Be High Risk For COVID-19? No Information not available 08/25/2024 What Was The Date Of Your Most Recent Tobacco Screening? 06/01/2025 Information not available 06/01/2025 Has Tobacco Cessation Counseling Been Provided? Yes [email or web address] Information not available 12/28/2022 On What Date Was Tobacco Cessation Counseling Provided? 06/01/2025 Information not available 06/01/2025 How Many Years Have You Smoked Tobacco? 20 [email or web address] Information not available 12/28/2022 Sex: Female Functional Status Question Answer Note LastModified by [employer] Details LastModified Time Do you use any illicit or recreational drugs? No Information not available 12/28/2022 Do you or have you ever used any other forms of tobacco or nicotine? Yes [email or web address] Information not available 04/24/2024 What is your level of alcohol consumption? None [email or web address] Information not available 12/28/2022 Do you or have you ever used smokeless tobacco? Never used smokeless tobacco [email or web address] Information not available 04/24/2024 Do you or have you ever used e-cigarettes or vape? Never used electronic cigarettes Information not available 04/24/2024 Mental Status None recorded. Family History Relationship Description Onset Age of this Age Resolved Age Notes LastModified by Organization Details LastModified Time Father No current problems or disability [email or web address] Not available 04/03 15:10:33 Mother No current problems or disability [email or web address] Not available 04/03 15:10:33 Medical History Condition Response Coronary Artery Disease N Gout N Kidney Stones N HX Inpatient Psych Admission N Depression N COPD N Congestive Heart Failure N Parkinson's N Anxiety Disorder N Muscle, Joint, or Bone Problems N Vision or Eye Problems N Arthritis N Serious Illness or Injuries N Blood Disease N Seizures / Epilepsy N Congenital Anomalies N Cancer N Stroke N Bladder or Kidney Problems N Hospital Admission other than N High Cholesterol N Liver Disease N Fibromyalgia N Pulmonary Embolism / DVT N Kidney Disease N Prostate N Ear or Hearing Problems N ADD or ADHD N Thyroid Problems N Skin Problems N Anemia N Constipation N Diabetes N Bedwetting N Eczema, Hives, or other skin conditions N Tuberculosis N Pacemaker / Defibrillator N Diverticulitis N Dementia N Asthma N Allergies N GERD / Reflux N Heart Disease N Hypertension N Chicken Pox N Osteoporosis N Gynecological History Statement/Question Response Current Control Method Hysterectom y Obstetrics History GPAL:G 0 P 0 0 0 0 Past Encounters Encounter ID Performer Location Encounter Start Date Encounter Closed Date Diagnosis/Indication Diagnosis SNOMED-CT Code Diagnosis ICD10 Code Diagnosis IMO Codes Diagnosis Note [id number] LAYLA Oneal [facility] [address] [place] [address] 12/28/2022 14:43:45 12/29/2022 11:50:01 Loss of appetite 31883129 R63.0 Patient is unclear of her medication s or dosages, too weak to discuss, doesn't have them with her. Sending patient to the ER for further evaluation and treatment and patient to follow up after discharge. Nausea and vomiting 1693 2000 R11.2 Patient is unclear of her medication s or dosages, too weak to discuss, doesn't have them with her. Sending patient to the ER for further evaluation and treatment and patient to follow up after discharge. Constipation 17021258 K5 9.00 Patient is unclear of her medication s or dosages, too weak to discuss, doesn't have them with her. Sending patient to the ER for further evaluation and treatment and patient to follow up after discharge. Malaise and fatigue 2717 96100 R53.81 R53.83 Patient is unclear of her medication s or dosages, too weak to discuss, doesn't have them with her. Sending patient to the ER for further evaluation and treatment and patient to follow up after discharge. Muscle weakness 16921501 M62.81 Patient is unclear of her medication s or dosages, too weak to discuss, doesn't have them with her. Sending patient to the ER for further evaluation and treatment and patient to follow up after discharge. Dyslipidem ia due to type 2 diabetes mellitus [id number] 02 E78.5 Patient is unclear of her medication s or dosages, too weak to discuss, doesn't have them with her. Sending patient to the ER for further evaluation and treatment and patient to follow up after discharge. History of coronary artery bypass grafting 875590988 Z95.1 Patient is unclear of her medication s or dosages, too weak to discuss, doesn't have them with her. Sending patient to the ER for further evaluation and treatment and patient to follow up after discharge. Congestive heart failure 75334894 I50.9 Patient is unclear of her medication s or dosages, too weak to discuss, doesn't have them with her. Sending patient to the ER for further evaluation and treatment and patient to follow up after discharge. Essential hypertension 18087881 I10 Patient is unclear of her medication s or dosages, too weak to discuss, doesn't have them with her. Sending patient to the ER for further evaluation and treatment and patient to follow up after discharge. Pale complexion 04237793 0 R23.1 Patient is unclear of her medication s or dosages, too weak to discuss, doesn't have them with her. Sending patient to the ER for further evaluation and treatment and patient to follow up after discharge. Complicati on due to diabetes mellitus 44701402 E11.8 Patient is unclear of her medication s or dosages, too weak to discuss, doesn't have them with her. Sending patient to the ER for further evaluation and treatment and patient to follow up after discharge. Hyperlipidemia 72814790 E78.5 Patient is unclear of her medication s or dosages, too weak to discuss, doesn't have them with her. Sending patient to the ER for further evaluation and treatment and patient to follow up after discharge. Mild recur rent major depression 54227029 F33.0 Patient is unclear of her medication s or dosages, too weak to discuss, doesn't have them with her. Sending patient to the ER for further evaluation and treatment and patient to follow up after discharge. [id number] Richard Be, DO [facility] [place](DO [place] [id number]) [address] [place] [address] 01/03/2023 22:26:51 01/05/2023 09:11:57 Chronic pain syndrome 866419883 G89.4 As [facility] [facility] Wheezing 06755180 R06.2 Need clarificat ion of this orderCalle d into [facility] [id number] Richard Be, DO [facility] [place](DO NOT [place] [address]) [address] [place] [address] 01/05/2023 13:09:28 01/12/2023 10:30:41 Angina co-occurrent and due to coronary arteriosclerosis 1223364650 1044231 I25.119 1. Continue Atorvastat in 80mg daily.2. Continue ASA 81mg daily.3. Risk factor modificati ons.4. F/u appt with cardiology for continued monitoring .5. PT/OT eval and treat. Acute non- ST segment elevation myocardial infarction 074065943 I21.4 1. Continue above orders. Hyperglyce suzanne due to type 2 diabetes mellitus 8634178749 00557 E11.65 1. Accuchecks BID.2. Continue Metformin 1000mg bid, Jardiance 10mg in am, Tradjenta 5mg daily.3. Admission labs.4. Consistent carb, MARY diet. Hyperlipidemia 64989803 E78.5 1. Continue high intensity statin.2. Admission labs. Constipation 20230440 K5 9.00 1. Continue Nancy-Lanta and Docusate per orders. Congestive heart failure 23702438 I50.9 1. Continue Spironolac tone 25mg daily and Lasix 60mg daily.2. Admission labs.3. MARY diet.4. Daily weights, then weekly weights. Report weight gain greater than 3 lb in one day or greater than 5 lb in one week.5. Continue Beta Irvin, MARGA inhibitor, statin.6. Will manage and control diabetes and hypertensi on.7. Will avoid NSAID's.8. Keep cardiology consultati on. Osteoarthr itis of multiple joints 930022074 M15.9 1. Continue Tramadol/H ydrocodone per orders.2. Do not combine. Tramadol for mild to moderate pain. Hydrocodon e for severe pain. Generalize d anxiety disorder 66793325 F41.1 1. Continue Xanax per orders.2. Plan to d/c as tolerated. 3. Patient quite anxious today.4. Staff to administer and monitor.5. Consider daily SSRI for persistent anxiety. Muscle atrophy 12130502 M62.50 1. PT/OT eval and treat. [id number] LAYLA Oneal [facility] [address] [place] [address] 01/09/2023 16:03:08 01/09/2023 17:14:42 Type 2 diabetes mellitus 00185992 E11.9 Congestive heart failure 99281964 I50.9 Chest wall pain 99163495 6 R07.89 Loss of appetite 9454874 6 R63.0 Flatulent dyspepsia 2495 37901 K30 [id number] LAYLA Oneal [facility] [address] [facility] [address] [place] [address] 01/30/2023 13:39:54 01/30/2023 15:07:46 Essential hypertension 20309125 I10 Hyperlipidemia 71969915 E78.5 Patient is unclear of her medication s or dosages, too weak to discuss, doesn't have them with her. Sending patient to the ER for further evaluation and treatment and patient to follow up after discharge. Type 2 virgil betes mellitus 57108727 E11.9 Intractabl e nausea and vomiting 713699954 R11.2 Gastroesop hageal reflux disease without esophagitis 586676485 K21.9 [id number] Crystal Garcia APRN [place] [id number] [facility] [place] [address] 02/05/2023 12:13:12 02/05/2023 13:25:12 Type 2 diabetes mellitus 00650278 E11.9 Low blood pressure 83314 003 I95.9 Hyperlipidemia 30792269 E78.5 Patient is unclear of her medication s or dosages, too weak to discuss, doesn't have them with her. Sending patient to the ER for further evaluation and treatment and patient to follow up after discharge. Congestive heart failure 60194842 I50.9 History of coronary artery bypass grafting 271016032 Z95.1 Patient is unclear of her medication s or dosages, too weak to discuss, doesn't have them with her. Sending patient to the ER for further evaluation and treatment and patient to follow up after discharge. [id number] [facility] [place] [address] [place] [address] 04/12/2023 14:44:26 04/12/2023 17:21:03 Dyspnea 268824442 R06.00 Loss of appetite 1839579 6 R63.0 Pleural effusion 4443864 8 J90 Congestive heart failure 10201562 I50.9 Type 2 virgil betes mellitus 99029919 E11.9 [id number] [facility] [place] [address] [place] [address] 04/16/2023 14:23:56 04/16/2023 15:44:28 Pleural effusion 74303674 J90 Congestive heart failure 38882838 I50.9 Type 2 virgil betes mellitus 06457567 E11.9 [id number] [facility] [place] [address] [place] [address] 07/09/2023 15:21:55 07/09/2023 17:15:45 Congestive heart failure 13491072 I50.9 Type 2 virgil betes mellitus 37863488 E11.9 Cough 39545018 R05.9 Viral syndrome 652620417 B34.9 [id number] [facility] [place] [address] [place] [address] 10/31/2023 13:25:32 11/05/2023 11:11:42 Muscle weakness 29765856 M62.81 Patient states she has not been exercising as much lately due to the colder weather but thinks she will begin back and thinks this is part of her muscle weakness. Congestive heart failure 86652755 I50.9 Patient is currently taking atorvastat in 80 mg daily with no negative side effects-- Will continue medication . Labs today She also follows with cardiologi st, Dr. King, Taking Entresto 24mg-26mg bid, bisoprolol fumarate 5 mg daily, and midodrine 10 mg tid prescribed by Dr. King Essential hypertension 31214453 I10 She follows with cardiologi Dr. Fernando contreras, Taking Entresto 24mg-26mg bid, bisoprolol fumarate 5 mg daily, and midodrine 10 mg tid prescribed by Dr. King with no negative side effects. Pain of mu ltiple joints 08356278 M25.50 see below--pat ient also uses lidocaine patches, heat patches, diclofenac gel prior to any other medication s etc. Hyperlipidemia 24903825 E78.5 Patient is currently taking atorvastat in 80 mg daily with no negative side effects-- Will continue medication . Labs today Pleural effusion 3893644 8 J90 Last chest xray showed no changes, this is chronic and patient denies any dyspnea today and pulse ox good at 99% on RA. Type 2 virgil betes mellitus 08590414 E11.9 E11.59 E11.40 Patient is currently taking metformin 1000mg bid and jardiance 10 mg daily with no negative side effects-- BS controlled . Will continue medication . Labs today. Constipation 03365610 K5 9.00 Patient takes otc MOM 30ml and constipati on controlled . Gastroesop hageal reflux disease without esophagitis 299248519 K21.9 Patient is currently taking pantoprazo le 40 mg ER with no negative side effects and GERD controlled -- Will continue medication . Generalize d anxiety disorder 87046591 F41.1 Patient is currently taking with no negative side effects-- Will continue medication . Hypertensi ve heart disease with congestive heart failure 7163322 I11.0 Patient is currently taking atorvastat in 80 mg daily with no negative side effects-- Will continue medication . Labs today She also follows with cardiologi stDr. King, Taking Entresto 24mg-26mg bid, bisoprolol fumarate 5 mg daily, and midodrine 10 mg tid prescribed by Dr. King Dependence on supplemental oxygen 7448957624 07 Z99.81 Wears oxygen at night at 2L/NC with no complaints of dyspnea. Atheroscle rosis of coronary artery without angina pectoris 5407242097 64049 I25.119 Patient is currently taking atorvastat in 80 mg daily with no negative side effects-- Will continue medication . Labs today She also follows with cardiologi st, Dr. King, Taking Entresto 24mg-26mg bid, bisoprolol fumarate 5 mg daily, and midodrine 10 mg tid prescribed by Dr. King [id number] [facility] [address] [facility] [place] [address] 11/05/2023 14:19:14 11/05/2023 15:01:30 Congestive heart failure 10483609 I50.9 Iron deficiency 06916919 E61.1 [id number] Crystalalivia Garcia APRN [address] [place] [address] 02/01/2024 11:56:21 02/01/2024 12:53:40 Nausea and vomiting 26833726 R11.2 Patient is unclear of her medication s or dosages, too weak to discuss, doesn't have them with her. Sending patient to the ER for further evaluation and treatment and patient to follow up after discharge. Seborrheic dermatitis of scalp 431941753 L21.0 [id number] Crystalalivia Garcia APRN [facility] [address] [place] [address] 02/11/2024 13:20:54 02/13/2024 11:36:27 Congestive heart failure 99066494 I50.9 Type 2 virgil betes mellitus 00850306 E11.9 E11.59 E11.40 Essential hypertension 07025303 I10 Nausea and vomiting 1691999 R11.2 Patient states improvemen t--will f/u [id number] [facility] [address] [facility] [address] [place] [address] 04/24/2024 14:37:37 04/24/2024 15:53:01 Hyperlipidemia 15600149 E78.5 continue atorvastat in as prescribed Congestive heart failure 17244453 I50.9 bumetanide as prescribed Gastroesop hageal reflux disease without esophagitis 045720912 K21.9 pantoprazo le as prescribed Pain of mu ltiple joints 08793143 M25.50 tramadol as prescribed Screening mammography 24 367509 Z12.31 mammogram screening Pain of sh oulder region 54518487 M25.519 XR shoulder Neck pain 65566290 M54.2 XR as ordered [id number] [facility] [address] [place] [address] 08/25/2024 10:51:29 08/25/2024 12:03:24 Type 2 diabetes mellitus 92503659 E11.9 E11.59 E11.40 1. Monitor glucose at home. Bring log to next visit. If consistent ly greater than 150, return to clinic sooner than 3 months.2. Consistent food intake & activity for best management .3. Continue current medication s for DM.4. Continue daily foot exams.5. Ensure that you see the eye doctor at least yearly.6. Repeat labs today. F/u in 3 months. Hyperlipidemia 00147279 E78.5 1. Continue high intensity statin.2. Repeat labs today. Projectile vomiting 8579 004 R11.12 1. Trial of holding iron2. Consult with GI for potential EGD.3. F/u in 1 month to review symptoms. Iron defic iency anemia 34347588 D50.9 1. Repeat labs today.2. F/u in 1 month. [id number] [facility] [address] [place] [address] 11/18/2024 14:49:07 11/18/2024 15:55:35 Acute bronchitis 51007623 J20.9 1. Increase oral liquids. 2. Take antibiotic s as prescribed with food.3. May take tylenol/ib uprofen prn as recommende d for pain/fever .4. Use the albuterol prn cough/dysp luc as prescribed .5. Start the guaifenesi n bid. Increase water while taking.6. Return to clinic in 2-3 days for no improvemen t otherwise FU routinely in 1 month for labs. Type 2 virgil rylanes mellitus 38849709 E11.9 E11.59 E11.40 1. Monitor glucose at home. Bring log to next visit. If consistent ly greater than 150, return to clinic sooner than 3 months.2. Consistent food intake & activity for best management .3. Continue Jardiance 25mg daily.4. Continue daily foot exams.5. Ensure that you see the eye doctor at least yearly.6. Repeat labs in 1 month. Hypertensi ve heart disease with congestive heart failure 3994020 I11.0 I50.9 I10 1. Continue Carvedilol 3.125mg bid, Entresto 24-26mg bid.2. F/u with cardiology as scheduled. Hyperlipidemia 12613214 E78.5 1. Continue Atorvastat in 80mg at hs.2. Repeat labs with f/u. Dependence on supplemental oxygen 0830408588 07 Z99.81 1. Wears oxygen at night at 2L/NC with no complaints of dyspnea. [id number] LAYLA MCDONALD [facility] [address] [place] [address] 11/21/2024 11:41:37 11/21/2024 12:44:59 Acute bronchitis 20503319 J20.9 1. Increase oral liquids.2. Continue to take antibiotic s as prescribed with food.3. May take tylenol prn as recommende d for pain/fever .4. Use the albuterol prn cough/dysp luc as prescribed .5. Dex 4mg and Kenalog 40mg IM today. Monitor glucose as discussed. 6. Return to clinic in 2-3 days for no improvemen t or sooner for worsening. Normocytic anemia 638545 002 D64.9 1. Repeat CBC today d/t pallor and increased fatigue.2. F/u in 1 month as scheduled. [id number] LAYLA MCDONALD [facility] [address] [place] [address] 02/03/2025 15:51:05 02/03/2025 16:38:34 Primary gonarthrosis, bilateral 757835242 M17.0 [id number] [place]-PD[place] reviewed. No inappropri ate refills noted. 1. Continue Tramadol q8h prn severe pain.2. Do not drive while taking.3. F/u in 3 months. Type 2 virgil betes mellitus 70278410 E11.9 E11.59 E11.40 1. Monitor glucose at home. Bring log to next visit. If consistent ly greater than 150, return to clinic sooner than 3 months.2. Consistent food intake & activity for best management .3. Continue Jardiance 25mg daily and metformin 1000mg bid.4. Continue daily foot exams.5. Ensure that you see the eye doctor at least yearly.6. Repeat labs in 1 month. Urine micro today. Fatigue 93996655 R53.82 470459 1. Chronic in nature with moderately reduced EF.2. Repeat fasting labs in 1 month for monitoring . [id number] [facility] [address] [place] [address] 06/01/2025 14:52:29 06/01/2025 16:25:54 Acute suppurative otitis media without spontaneous rupture of ear drum 37660556 H66.003 6478960974 1. Increase oral liquids. Take antibiotic s as prescribed with food. 2. May take tylenol prn as recommende d for pain/fever . 3. Pain and/or fever should start to improve in 2-3 days. 4. Return to clinic in 2-3 days for no improvemen t.6. FU in 10 days to have ears re-checked . Seasonal allergy 3125602 04 J30.2 15496 1. Start nasal spray as prescribed .2. Avoid any known allergens or limit outdoor activities when pollen counts are high.3. Use air-condit ioning. Change or clean all filters every month. Keep windows closed. Use high-effic iency air filters. Don't use window or attic fans, which draw dust into the air.4. If you're allergic to pet dander, keep pets outside or, at the very least, out of your bedroom. Old carpet and cloth-cove red furniture can hold a lot of animal dander.5. Don't smoke or let anyone else smoke in your house. Don't use fireplaces or wood-burni ng stoves. Occipital headache 49213 7 R51.9 134949 1. Suspect secondary to OM.2. Start above medication s.3. Call for increased pain or worsening. 4. CT head negative. Health Concerns Section Related Observation LastModified by Organization Detai ls LastModified Time None Recorded Concern Status LastModified by Organization Details LastModified Time None Recorded Advance Directives Directive None Recorded Payers Insurance Date Sequence Insurance Name Policy Number Policy Perdomo Covered Member ID Perdomo Member ID Guarantor Name 07/15/2025 1 [employer] (MEDICARE REPLACEMENT/ ADVANTAGE - PPO) Treva Day [id number] Treva Day 07/15/2025 2 () Treva Day [id number] Treva Day Notes Date Note Type Note Provider Name and Address Organization Details Recorded Time 4 text/html VomitingReported by PatientHPI:For quality, patient reportsworsening. For associated symptoms, patient reportsexcess gasanddecreased appetitebut reportsno abdominal pain,no fever,no chills,no frequent coughing,no sore throat,no headache,no rash,no weight loss,no diarrhea,no dry heaves,no heartburn,no hematuria,no hematochezia,no mucus in stool,no melena,no weakness, andno fatigue. For severity, patient reportssevere. For duration, patient reports6 monthsandongoing. For context, patient reportsno one else with similar symptoms,no possible food sources,no recent travel,no well water,non-smoker,no drug/alcohol abuse, andno drug alcohol withdrawal. For onset/timing, (once daily). For alleviating factors, (takes protonix). For aggravating factors, (occurs in the morning). Patient is a 79 y/o female that presents to the clinic today for recurrent, projective vomiting. She reports symptoms have been ongoing for 6+ months. She reports that vomiting occurs without warning or nausea. She cannot correlate any particular foods or medications that worsen her symptoms. She denies melena, hematochezia, hematemesis, or abdominal pain. She has tried taking Zofran without improvement of symptoms. She denies fever or chills. She does have a history of constipation, but reports she is controlling the constipation with diet. She is compliant with PPI and denies uncontrolled reflux symptoms. DON COLE, PACKAGING LINE OPERATOR [address], [place], [address], [facility] 08/25/2024 12:32:14 5 text/html CoughReported by PatientHPIFor quality, patient reportsharshandbarking. For severity, patient reportsworseningbut reportsmoderate. For timing, patient reportsworse. For context, patient reportsworse at nightbut reportsnon-smoker. For associated symptoms, patient reportschills,agitated,w heezing, andpost nasal dripbut reportsno fever,no chest pain,no heartburn,no nausea,no vomiting, andno edema. For modifying factors, patient reportsotc medication. For duration, (x 1 week). Patient is 79 y/o female here today with complaints of a persistent productive cough that started 1 week ago. She has been taking OTC caroline seltzer with mild improvement of symptoms. She denies any known fever, but has had chills. DON COLE APRN [address], [place], [address], [facility] 11/18/2024 15:52:00 5 text/html CoughReported by PatientHPIFor severity, patient reportsworseningbut reportsmoderate. For context, patient reportsworse at nightbut reportsnon-smoker. For associated symptoms, patient reportspost nasal dripbut reportsno fever,no chest pain,no heartburn,no nausea,no vomiting, andno edema. For duration, (x 1 week). For timing, (some better). For modifying factors, (taking zpak and mucinex as prescribed). Patient is 79 y/o female here today for follow up to discuss persistent cough that started over 1 week ago. She has been taking Zpak and mucinex as prescribed with some improvement. Cough is more productive. She notes increased fatigue and overall just feeling tired since the cough started. The cough does keep her up at night. No fever or chills. No dizziness, orthopnea, or chest pain. DON COLE APRN [address], [place], [address], [facility] 11/21/2024 12:21:47 5 text/html Patient is 79 y/o female here today for follow up to discuss getting refill on her Tramadol. She takes medication for bilateral knee pain/OA. She reports since last visit she had ICD and pacemaker implant placed on 11/27/24 at [facility] in [place] with Dr. Jeffers. She denies any complaints with implant. She continues to have fatigue, but denies any dyspnea or orthopnea. DON COLE APRN [address], [place], [address], [facility] 02/05/2025 11:38:06 5 text/html Patient is 80 y/o female here today for a hospital f/u. She went to the ER on 05/29/25 for a severe headache. She reports waking up with the pain. CT head obtained with negative findings. She was given a headache cocktail . This did improve her pain temporarily. She reports that over the last week she has had congestion and left ear pain. The posterior head pain started three days ago. She denies fever or chills. Ibuprofen seems to help with the pain. She denies any rashes to her head where the tenderness is located. No known sick contact. She does not believe she has ever had chicken pox and did not have the vaccine. She denies any visual changes or one sided weakness. DON COLE APRN [address], [place], [address], [facility] 06/02/2025 11:54:42 OBGyn Episode No OBEpisode recorded.
--- OUTSIDE RECORDS SUMMARY | 2025-07-26 23:57 | XMS_ITS | Continuity of Care Document ---
Author Organization [facility], [facility] Address [address] [place] [address] Care Team Providers Care Project Design Engineer Name Role Phone [facility] OTHER Assessment No assessment recorded. Plan of Treatment Reminders Order Date Submit Date Provider Last Modified By Organization Details Last Modified Time Details Appointments None recorded. Lab None recorded. Referral None recorded. Procedures None recorded. Surgeries None recorded. Imaging None recorded. Medication Orders fluticasone propionate 50 mcg/actuati on nasal spray,suspe nsion 2024 025 [facility] [place], [address], [place], [address], 17:04:44 amoxicillin 500 mg tablet 2024 025 [facility] [place], [address], [place], [address], 05:02:12 Patient TargetsNo targets recorded. Patient Instructions Encounter Date Encounter Id Patient Instructions Last Modified By Organization Details Last Modified Time 06/01/2025 [id number] Patient discharged to self/family to home in stable condition. Follow up instructions given. paolo Not available 06/02/2025 11:54:23 Reason for Referral None Reported. Problems Name Problem SNOMED Code Status Onset Date Resolution Date Notes Provider Name and Address Organization Details Recorded Time Hyperlipi demia 85469176 Active 2022 Crystal Garcia APRN [address], [place], [address], [place] - [facility] 3 14:16:19 Diabetes mellitus 57157274 Completed 202211/04/2023 Crystal Garcia APRN [address], [place], [address], [facility] - [facility] 4 20:21:12 Myocardia l infarctio n 87149836 Completed 202212/31/2022 Crystal Garcia APRN [address], [place], [address], [facility] Access [facility] 3 14:16:48 History of heart block 324109003350 101 Completed 202211/04/2023 Crystal Garcia APRN [address], [place], [address], [facility] Access [facility] 4 20:21:12 Loss of appetite 70773799 Completed 202211/04/2023 Crystal Garcia APRN [address], [place], [address], [facility] Access [facility] 4 20:21:12 Nausea and vomiting 67568666 Completed 202204/17/2023 Crystal Garcia APRN [address], [place], [address], [facility] Access [facility] 4 23:25:31 Constipat ion 59739979 Active 2022 Crystal Garcia APRN [address], [place], [address], [facility] Access [facility] 3 15:11:39 Muscle weakness 57723165 Active 2022 Crystal Garcia APRN [address], [place], [address], [facility] Access [facility] 3 15:11:39 Malaise and fatigue 309547142 Completed 202204/17/2023 Crystal Garcia APRN [address], [place], [address], [facility] - Access [facility] 3 15:11:58 Type 2 diabetes mellitus 56118965 Active 2022 Crystal Garcia APRN [address], [place], [address], [facility] Access [facility] 3 15:11:39 Angina co-occurr ent and due to coronary arteriosc lerosis 057110542311 06932 Completed 202204/17/2023 Crystal Garcia APRN [address], [place], [address], [facility] Access [facility] 3 15:11:58 Acute non-ST segment elevation myocardia l infarctio n 423984114 Completed 202204/17/2023 Crystal Garcia APRN [address], [place], [address], [facility] Access [facility] 3 15:11:58 Hyperglyc emia due to type 2 diabetes mellitus 995687482067 109 Completed 202204/17/2023 Crystal Garcia APRN [address], [place], [address], [facility] Access [facility] 3 15:11:58 Congestiv e heart failure 81953546 Active 2022 Crystal Garcia APRN [address], [place], [address], [facility] Access [facility] 3 15:11:39 Generaliz ed anxiety disorder 73261780 Active 2022 Crystal Garcia APRN [address], [place], [address], [facility] - Access [facility] 3 15:11:39 Chest wall pain 959780999 Completed 202204/17/2023 Crystal Garcia APRN [address], [place], [address], [facility] Access [facility] 3 15:11:58 Flatulent dyspepsia 654580153 Completed 202211/04/2023 Crystal Garcia APRN [address], [place], [address], [facility] Access [facility] 4 20:21:12 Gastroeso phageal reflux disease without esophagit is 783651857 Active 2022 Crystal Garcia APRN [address], [place], [address], [facility] 3 15:11:39 Essential hypertens ion 95976937 Active 2022 Crystal Garcia APRN [address], [place], [address], [facility] 3 15:11:39 Intractab le nausea and vomiting 172348912 Completed 202204/17/2023 Crystal Garcia APRN [address], [place], [address], [facility] 3 15:11:58 Low blood pressure 10696352 Completed 202204/17/2023 Crystal Garcia APRN [address], [place], [address], [facility] 3 15:11:58 Pleural effusion 08743763 Active 2022 left Jazmyne rod, [facility] 3 15:27:10 Dyspnea 829287535 Completed 202211/04/2023 Crystal Garcia APRN [address], [place], [address], [facility] 4 20:21:12 Cough 96188821 Completed 202211/04/2023 Crystal Garcia APRN [address], [place], [address], [facility] 4 20:15:57 Viral syndrome 820867333 Completed 202211/04/2023 Crystal Garcia APRN [address], [place], [address], [facility] 4 20:15:57 Pain of multiple joints 72427271 Completed 202311/04/2023 Crystal Garcia APRN [address], [place], [address], [facility] 4 20:26:31 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 3320023 Active 2023 Crystal Garcia APRN [address], [place], [address], [facility] 4 20:25:01 Dependenc e on supplemen yeny oxygen 768053767969 Active 2023 Crystal Garcia APRN [address], [place], [address], [facility] 4 20:25:01 Pain of multiple joints 56161286 Active 2023 Crystal Garcia APRN [address], [place], [address], [facility] 4 20:26:31 Atheroscl erosis of coronary artery without angina pectoris 952723715412 103 Active 2023 Crystal Garcia APRN [address], [place], [address], [facility] 20:26:31 Iron deficienc y 07959994 Active 2023 Crystal Garcia APRN [address], [place], [address], [facility] 4 21:57:45 Nausea and vomiting 09880015 Active 2023 Crystal Garcia APRN [address], [place], [address], [facility] 4 23:25:31 Pain of shoulder region 90367217 Active 2023 [address]Z [address], [place], [address], [facility] 4 15:30:19 Neck pain 53480522 Active 2023 LAYLA TORREZ [address], [place], [address], [facility] 4 15:30:49 Iron deficienc y anemia 19252386 Active 2023 DON Saenz APRN [address], [place], [address], [facility] 4 12:31:38 Projectil e vomiting 7489150 Active 2023 DNO Saenz APRN [address], [place], [address], [facility] 4 12:31:40 Acute bronchiti s 07438775 Active 2024 DON Saenz APRN [address], [place], [address], [facility] 5 12:19:12 Occipital headache 147070 Active 2024 DON Saenz APRN [address], [place], [address], [facility] 5 11:54:15 Problem Notes None recorded. Procedures Surgical History Date Name Laterality Status Provider Name and Address Organization Details Recorded Time 12/28/19 23 CABG completed Crystal Garcia APRN [address], [place], [address], [place] [facility] [facility] 01/07/2023 23:20:38 11/27/19 23 cardiac catheterization completed [facility] 12/28/2022 15:13:13 Hysterectomy completed [facility] 12/28/2022 15:13:21 Imaging Results None recorded. Procedure [...] Updated DateTime 5 162.56 cm 21.7 kg/m2 19293.3 6 g 72 /min 18 /min 98 [degF] 97 % 124/60 mm[Hg] Pearl Arriola [facility] 15:35:56 Social History Question Answer Notes LastModified by Organizat ion Details LastModified Time Tobacco Smoking Status Former Smoker Jazmyne rod, [facility] 12/28/2022 15:17:37 In The 14 Days Before [...] Has Tobacco Cessation Counseling Been Provided? Yes [email or web address] Information not available 12/28/2022 On What Date Was Tobacco Cessation Counseling Provided? 06/01/2025 Information not available 06/01/2025 How Many Years Have You Smoked Tobacco? 20 [email or web address] Information not available 12/28/2022 Sex: Female Functional Status Question Answer Note LastModified by Organizat ion Details LastModified Time Do you use any illicit or recreational drugs? No [email or web address] Information not available 12/28/2022 Do you or have you ever used any other forms of tobacco or nicotine? Yes [email or web address] Information not available 04/24/2024 What is your level of alcohol consumption? None [email or web address] Information not available 12/28/2022 Do you or have you ever used smokeless tobacco? Never used smokeless tobacco [email or web address] Information not available 04/24/2024 Do you or have you ever used e-cigarettes or vape? Never used electronic cigarettes Information not available 04/24/2024 Mental Status None recorded. Family History Relationship Description Onset Age of this Age Resolved Age Notes LastModified by Organization Details LastModified Time Father No current problems or disability Not available 04/03 15:10:33 Mother No current problems or disability [email or web address] Not available 04/03 15:10:33 Medical History Condition Response Coronary Artery Disease N Gout N Kidney Stones N COPD N Depression N HX Inpatient Psych Admission N Congestive Heart Failure N Parkinson's N Anxiety Disorder N Muscle, Joint, or Bone Problems N Vision or Eye Problems N Arthritis N Serious Illness or Injuries N Blood Disease N Seizures / Epilepsy N Congenital Anomalies N Cancer N Stroke N Bladder or Kidney Problems N Hospital Admission other than N High Cholesterol N Liver Disease N Pulmonary Embolism / DVT N Fibromyalgia N Kidney Disease N Prostate N Ear [...] ICD10 Code Diagnosis IMO Codes Diagnosis Note [id number] DON COLE , INVESTIGATOR [employer] [employer] [address] [place], [place] [address] 06/01/2025 14:52:29 06/01/2025 16:25:54 Acute suppurative otitis media without spontaneous rupture of ear drum 27043880 H66.003 [id number] 1. Increase oral liquids. Take antibiotic s as prescribed with food. 2. May take tylenol prn as recommende d for pain/fever . 3. Pain and/or fever should start to improve in 2-3 days. 4. Return to clinic in 2-3 days for no improvemen t.6. FU in 10 days to have ears re-checked . Seasonal allergy 5594579 04 J30.2 48918 1. Start nasal spray as prescribed .2. [...] fireplaces or wood-burni ng stoves. Occipital headache 50919 7 R51.9 842553 1. Suspect secondary to OM.2. Start above medication s.3. Call for increased pain or worsening. 4. CT head negative. Health Concerns Section Related Observation LastModified by Organization Detai ls LastModified Time None Recorded Concern Status LastModified by Organization Details LastModified Time None Recorded Payers Encounter Date Sequence Insurance Name Policy Number Policy Perdomo Covered Member ID Perdomo Member ID Guarantor Name 06/01/2025 1 [employer] (MEDICARE REPLACEMENT/ ADVANTAGE - PPO) Treva Day [id number] Treva Day 06/01/2025 2 () Treva Day [id number] Treva Day Notes Date Note Type Note Provider Name and Address Organization Details Recorded Time 06/01/2025 text/html Patient is 80 y/o female here [...] visual changes or one sided weakness. DON COLE, INVESTIGATOR [employer]ILL [employer] [address], [place], [address], [facility] 06/02/2025 11:54:42 OBGyn Episode No OBEpisode recorded.
--- OUTSIDE RECORDS SUMMARY | 2025-07-26 23:57 | XMS_ITS | Patient Health Record ---
Author Organization [facility] Address [address] [place] [address] Care Team Providers Care Aviation Medicine Specialist Name Role Phone Crystal Garcia APRN Primary Care Provider Gustavo Oconnell Unavailable [phone] Sajan Mcgregor Unavailable [phone] Felisa Riley Unavailable [phone] Allergies Allergen (clinical drug ingredient) Drug/Non Drug Allergy documented on EMR Reaction Allergy Type Onset Date Status Pomegranate rash Drug Allergy Activ e Reason For Referral No Information Medications Medication SIG (Take, Route, Frequency, Duration) Notes Start Date End Date Status Aspirin 81 81 MG Tablet Delayed Release 1 tablet Orally Once a day Active Atorvastatin Calcium 80 MG Tablet 1 tablet Orally Once a day Active Bumetanide 1 mg Tablet TAKE 1 TABLET BY MOUTH ONCE DAILY Active Entresto 24-26 MG Tablet TAKE 1 TABLET B Y MOUTH TWICE DAILY; Duration: 30 days Active Iron Not-Taking Jardiance 25 mg Tablet TAKE 1 TABLET BY MOUTH ONCE DAILY; Duration: 30 Active metFORMIN HCl 1000 MG Tablet 1 tablet with a meal Oral BID Active Midodrine HCl 10 mg Tablet TAKE 1 TABLET BY MOUTH THREE TIMES DAILY Active Carvedilol 6.25 MG Tablet TAKE 1 TABLET BY MOUTH TWICE DAILY WITH FOOD; Duration: 90 Active Pantoprazole Sodium 40 MG Tablet Delayed Release 1 tablet 1/2 to 1 hour before morning meal Orally Once a day; Duration: 30 days Active Immunizations Vaccine Route Administration Date Status Comme herminio Afluria Quadrivalent Influenza Vaccine 3 years+ Unknown 05/23/2019 Administered Flucelvax IM Intramuscular 05/21/2020 Administered Flucelvax Quadrivalent Pres Free IM Intramuscular 07/05/2021 Administered Flucevax Quadravalent IM Intramuscular 06/06/2022 Administ pedro luis Influenza (whole), CPT 34093 Inactive Unknown 08/15/2018 Administered Pneumococcal conjugate PCV 13 Unknown 04/03/2018 Administered Pneumococcal polysaccharide PPV23 Unknown 08/05/2012 Administered zzTetanus toxoid, absorbed Unknown 03/10/2014 Administbryson arias Social History Tobacco Use: Social History Observation Description Date Details (start date - stop date) Former Smoker NA - NA Social History Depression Screening Social Info Question Answer Notes PHQ-9 Little interest or pleasure in doing thin gs Not at all Feeling down, depressed, or hopeless Not at all Trouble falling or staying asleep, or sleeping t oo much Several days Feeling tired or having little energy Several da ys Poor appetite or overeating Not at all Feeling bad about yourself, or that you are a failure, or have let yourself or your family down Not at all Trouble concentrating on thi ngs, such as reading the newspaper or watching television Not at all Moving or speaking so slowly that other people could have noticed. Or the opposite ? being so fidgety or restless that you have been moving around a lot more than usual Not at all Thoughts that you would be b soha off , or of hurting yourself in some way Not at all Total Score 2 Interpretation Minimal Depression Tobacco Use: Social Info Question Answer Notes Tobacco Control (Standard) Tobacco use: Former smoker How long has it been since you last smoked? Greater than 10 years Additional Details Category Social Info Options Details zzMigrated Social History Migrated Social History Smoking Status:Never smoked tobacco (finding) Section Notes: denies alcohol admits caffeine denies alcohol admits caffeine denies alcohol admits caffeine denies alcohol admits caffeine denies alcohol admits caffeine Problems Problem Type SNOMED Code ICD Code Onset Dates Problem Status W/U Status Risk Notes Problem Chronic pain (85807399) Other chronic pain (G89.29) Active confirmed Problem Mitral valve disorder (28031839) Nonrheumatic mitral (valve) insufficiency (I34.0) Active confirmed Problem Tricuspid valve disorder, non-rheumatic (544321396) Nonrheumatic tricuspid (valve) insufficiency (I36.1) Active confirmed Problem Acute on chronic systolic heart failure (054576073) Acute on chronic systolic (congestive) heart failure (I50.23) Active confirmed Problem Hypoxemia (907985891) Hypoxemia (R09.02) Active confirmed Problem Gastroesophageal reflux disease without esophagitis (939349991) Gastroesophageal reflux disease without esophagitis (K21.9) Active confirmed Problem Pleural effusion (32431268) Pleural effusion (J90) Active confirmed Problem Significant coronary bypass graft disease (072900954) Coronary artery disease involving coronary bypass graft of circle heart without angina pectoris (I25.810) Active confirmed Problem Hypersomnia (67368455) Hypersomnia (G47.10) Active confirmed Problem Electrocardiogram abnormal (660945357) Abnormal EKG (R94.31) Active confirmed Problem Dizziness (706670628) Dizziness (R42) Active confirmed Problem Sinus tachycardia (71923838) Sinus tachycardia (R00.0) Active confirmed Problem Chronic systolic heart failure (252248927) Chronic systolic congestive heart failure (I50.22) Active confirmed Problem Hypoxia (463091990) Hypoxia (R09.02) Active con firmed Problem Atherosclerotic heart disease of circle coronary artery without angina pectoris (102430765381761) Arteriosclerosis of coronary artery (I25.10) Active confirmed Problem Bilateral lower extremity edema (282160484) Bilateral lower extremity edema (R60.0) Active confirmed Problem Hypotension (63666087) Hypotension (I95.9) Active confirmed Problem Hypertension (81478863) Hypertension (I10) Active confirmed Problem Chest pain (66025874) Chest pain (R07.9) Active confirmed Problem Ischemic cardiomyopathy (675410537) Cardiomyopathy, ischemic (I25.5) Active confirmed Problem Plain X-ray of chest abnormal (finding) (8116222962) Abnormal chest x-ray (R93.89) Active confirmed Problem Dependence on continuous supplemental oxygen (25479706213797) Dependence on continuous supplemental oxygen (Z99.81) Active confirmed Problem Peripheral circulatory disorder associated with diabetes mellitus (238129748) Controlled type 2 diabetes mellitus with other circulatory complication, without long-term current use of insulin (E11.59) Active confirmed Problem Mixed hyperlipidemia (835986972) Mixed hyperlipidemia (E78.2) Active confirmed Problem Hyperglycemia due to type 2 diabetes mellitus (191347881405180) Type 2 diabetes mellitus with hyperglycemia, without long-term current use of insulin (E11.65) Active confirmed Problem Tinea unguium (694479939) Tinea unguium (B35.1) Problem resolved confirmed Problem Postmenopausal atrophic vaginitis (95086878) Postmenopausal atrophic vaginitis (N95.2) Problem resolved confirmed Problem Osteoarthritis of knee (403554988) Osteoarthritis of knee, unspecified (M17.9) Active confirmed Problem Postmenopausal state (11150096) Asymptomatic menopausal state (Z78.0) Active confirmed Vital Signs Heart Rate 84 /min 02/25/2025 Blood pressure diastolic 74 mm Hg 02/25/2025 Oximetry 99 % 02/25/2025 Weight-kg 56.7 kg 02/25/2025 Height 62 in 02/25/2025 Blood pressure systolic 144 mm Hg 02/25/2025 Weight 125 lbs 02/25/2025 BMI 22.86 kg/m2 02/25/2025 Encounters Encounter Location Date Provider Diagnosis [facility] [address] [place] [id number] 02/25/2025 Gustavo Fernando Acute on chronic systolic (congestive) heart failure I50.23 ; SOB (shortness of breath) on exertion R06.02 ; Swelling R60.9 ; Mixed hyperlipidemia E78.2 ; Type 2 diabetes mellitus with hyperglycemia, without long-term current use of insulin E11.65 ; Arteriosclerosis of coronary artery I25.10 and Hx of CABG Z95.1 [facility] [address] [place] [phone] 08/21/2024 Felisa Riley Other fatigue R53.83 ; Coronary artery disease involving coronary bypass graft of circle heart without angina pectoris I25.810 ; Nonrheumatic mitral (valve) insufficiency I34.0 ; Nonrheumatic tricuspid (valve) insufficiency I36.1 ; Chronic systolic congestive heart failure I50.22 ; Mixed hyperlipidemia E78.2 ; Type 2 diabetes mellitus with hyperglycemia, without long-term current use of insulin E11.65 and Gastroesophageal reflux disease without esophagitis K21.9 [facility] [address] [place] [address] [place] [address] 08/06/2024 Sajan Mcgregor Assessments Encounter Date Diagnosis (ICD Code) Assessment Notes Treatment Notes Treatment Clinical Notes Section Notes 02/25/2025 Acute on chronic systolic (congestive) heart failure (ICD-10 - I50.23) EF 15-20% per April 2024 echo, s/p AICD. Increase carvedilol to 6.25 mg BID. Continue current dose of bumetanide, Entresto, and Jardiance for GDMT. 02/25/2025 SOB (shortness of breath) on exertion (ICD-10 - R06.02) 08/21/2024 Other fatigue (ICD-10 - R53.83) Fatigue is thought to be secondary to reduced EF. Continue with conservative management. 08/21/2024 Coronary artery disease involving coronary bypass graft of circle heart without angina pectoris (ICD-10 - I25.810) No anginal symptoms. Status post CABG in November 2021. Continue with conservative management. 02/25/2025 Swelling (ICD-10 - R60.9) 02/25/2025 Mixed hyperlipidemia (ICD-10 - E78.2) Continue current dose of atorvastatin (Lipitor) for high-intensity statin therapy. 08/21/2024 Nonrheumatic mitral (valve) insufficiency (ICD-10 - I34.0) Repeat echo annually to monitor her moderate mitral regurgitation. 08/21/2024 Nonrheumatic tricuspid (valve) insufficiency (ICD-10 - I36.1) 02/25/2025 Type 2 diabetes mellitus with hyperglycemia, without long-term current use of insulin (ICD-10 - E11.65) Maintained on Jardiance and metformin. 02/25/2025 Arteriosclerosis of coronary artery (ICD-10 - I25.10) Patient is not having anginal symptoms. Continue conservative therapy. 08/21/2024 Chronic systolic congestive heart failure (ICD-10 - I50.22) She has an EF in the 15-20% range based on most recent echo and has been referred for consideration of [employer]-D. The patient has an appointment with Dr. Jeffers in [place] on October 03, 2024. 08/21/2024 Mixed hyperlipidemia (ICD-10 - E78.2) Continue current dose of atorvastatin for high-intensity statin. 02/25/2025 Hx of CABG (ICD-10 - Z95.1) Status post CABG in November 2022. Continue current dose of aspirin. 08/21/2024 Type 2 diabetes mellitus with hyperglycemia, without long-term current use of insulin (ICD-10 - E11.65) Continue Jardiance and metformin for type 2 diabetes. Increasing Jardiance for chronic systolic CHF. 08/21/2024 Gastroesophageal reflux disease without esophagitis (ICD-10 - K21.9) 02/25/2025 Other Follow up in 6 months, or sooner if needed. Jana Rios, am scribing for Gustavo King MD.Gustavo Rios MD, personally performed the services prescribed in this documentation , as scribed by Jana Stein, and it is both accurate and complete. Plan Of Treatment Pending Test Test Name Order Date Mammogram Screen Mina Vik w/[id number] XR Outside CD 04/12/2023 Electrocardiogram 12 Lead Tracing-[id number] 02/26/2023 Sleep study > 3 Par-[id number] 05/19/2024 Sleep Study with [id number] 05/19/2024 PFT with FRC: (NO TGV) 05/19/2024 Next Appt Details Provider Name:Gustavo King , 09/01/2025 01:00:00 PM, [address] [place] [address], [phone], Insurance Providers Payer Name Payer Address Payer Phone Subscriber Number Group Number Insured Name Patient Relationship to Insured Coverage Start Date Coverage End Date [employer] Medicare Replacement [address] [address] [place] [address] [id number] LAVONNE BERRIOS Self - patient is the insured 8 [address] [address] [place] [address] [id number] LAVONNE BERRIOS Self - patient is the insured Medical (General) History Medical History History ICD Code Diabetes mellitus type 2 Diabetic peripheral neuropathy Hyperlipidemia Osteoarthritis Postmenopausal state Tinea unguium (resolved 05/24/2021) unde fined Postmenopausal atrophic vaginitis (resol ulises 05/24/2021) hx of covid Pneumonia Hert D iease Arthritis Bladder Infections Blood/Plasma Transfusions Back Trouble Low Blood Pressure Hemorroids Hives/Eczema Surgical History Surgery Date(Month/Year) knee surgery CABG 11/26/2022 chest pain, PE 04/04/2023 Hysterectomy Hospitalization History Reason Date(Month/Year) lulú parker CHF 01/2023 view sx's
[2025-07-27] VITALS (15 sets, daily range): BP systolic 101–158; BP diastolic 50–82; PULSE 74–124; RESP 14–21; TEMP 36.4–36.8; O2SAT 90–98; BMI 22.1; BMI 23.9
--- NOTE | 2025-07-27 00:23 | XRR_ITS ---
PROCEDURE INFORMATION: Exam: XR Chest Exam date and time: 07/27/2025 12:50 AM Age: 80 years old Clinical indication: Pain; Chest pressure; Additional info: Cp TECHNIQUE: Imaging protocol: Radiologic exam of the chest. Views: 1 view. COMPARISON: No relevant prior studies available. FINDINGS: Tubes, catheters and devices: Left chest ICD. Lungs: Unremarkable. No consolidation. Pleural spaces: Unremarkable. No pleural effusion. No pneumothorax. Heart/Mediastinum: Post cardiac surgery residuals. Vasculature: Aortic atherosclerosis. Bones/joints: Unremarkable. XR/XR chest 1V portable [id number] IMPRESSION: No definite acute infiltrate or effusion.
--- NOTE | 2025-07-27 00:23 | CTR_ITS ---
PROCEDURE INFORMATION: Exam: CTA Chest Without And With Contrast CTA Abdomen With Contrast Exam date and time: 07/27/2025 1:18 AM Age: 80 years old Clinical indication: Angina pectoris; Other: Back pain; Prior surgery; Surgery date: 6+ months; Surgery type: Open heart; Additional info: Prev cabg, HTN and ripping cp TECHNIQUE: Imaging protocol: Computed tomographic angiography of the chest without and with contrast. Exam focused on the arteries. Computed tomographic angiography of the abdomen with contrast. Exam focused on the arteries. 3D rendering (Not supervised by radiologist): MIP and/or 3D reconstructed images were created by the technologist. Radiation optimization: All CT scans at this facility use at least one of these dose optimization techniques: automated exposure control; mA and/or kV adjustment per patient size (includes targeted exams where dose is matched to clinical indication); or iterative reconstruction. Contrast material: OMNI; Contrast volume: 69 ml; Contrast route: INTRAVENOUS (IV); COMPARISON: CR (CHEST, ) 07/27/2025 12:50 AM RADIATION DOSE METRICS: Total DLP (mGy-cm): 681.9 FINDINGS: Tubes, catheters and devices: Left chest ICD. VASCULATURE: Pulmonary arteries: No definite significant pulmonary embolism or right heart strain. Aorta: Aortic and coronary atherosclerosis. No acute aortic dissection. Celiac and mesenteric arteries: No occlusion or significant stenosis. Renal arteries: No occlusion or significant stenosis. Thyroid: Thyroid nodule, consider nonurgent thyroid ultrasound for further characterization. CHEST: Lungs: Scattered pulmonary granulomas. Pleural spaces: Unremarkable. No pneumothorax. No pleural effusion. Heart: Post cardiac surgery residuals. ABDOMEN AND PELVIS: Liver: Old granulomatous disease of the liver and spleen. Gallbladder and biliary ducts: Unremarkable. No calcified stones. No ductal dilation. Pancreas: Unremarkable. No mass. No ductal dilation. Spleen: See Liver finding. Adrenal glands: Unremarkable. No mass. Kidneys: Nonspecific although commonly benign renal cysts. Stomach and bowel: Unremarkable. No obstruction. No mucosal thickening. Intraperitoneal space: Unremarkable. No free air. No significant fluid collection. Lymph nodes: Old granulomatous disease of hilar and mediastinal nodes. Bones/joints: Moderate degenerative changes of the thoracic and lumbar spine. Soft tissues: Unremarkable. [place] [id number] IMPRESSION: 1. No definite significant pulmonary embolism or right heart strain. 2. No aortic dissection. COMMENTS: 1. Consistent with the [employer]'s Incidental Findings Committee white paper (J Am Argelia Radiol 2018): Any incidental renal lesion less than 1 cm or classified as too small to characterize, or any incidental cystic renal lesion characterized as simple-appearing, is likely benign. No follow-up imaging is recommended for these lesions per consensus recommendations based on imaging criteria. 2. Consistent with the [employer]'s Incidental Findings Committee white paper (J Am Argelia Radiol 2015): In patients aged 35 years and older with an incidental thyroid nodule equal to or greater than 1.[address], MRI or extrathyroidal US, further evaluation with dedicated thyroid US is recommended for patients with normal life expectancy and without comorbidities. For smaller nodules without suspicious features, no further evaluation or follow up is recommended.
[2025-07-27 00:39] LABS: INR 0.94 (0.8-1.2); Partial Thromboplastin Time 27.0 SECONDS (23.9-36.7); Prothrombin Time 13.30 SECONDS (12.1-14.9)
[2025-07-27 00:46] LABS: Lactic Sepsis W/Reflex 0.9 mmol/L (0.5-2.2)
[2025-07-27] MEDS: morphine 4 mg/mL SDV 1 mL IVP (00:49)
[2025-07-27] MEDS: ondansetron 2 mg/ML SDV 2 mL 4 MG IVP (00:49)
[2025-07-27 00:50] LABS: Troponin(5th) Baseline 9 ng/L (0-10)
[2025-07-27 00:52] LABS: Hematocrit 32.8 % (36-47); Hemoglobin 10.70 g/dL (11.27-16.99); Mean Corpuscular HGB Conc 32.6 g/dL (30-55); Mean Corpuscular Hemoglobin 28.9 pg (27-33); Mean Corpuscular Volume 88.6 fl (85-98); Nucleated Red Blood Cells % 0 %; Platelet Count 236 10^3/cmm (157-399); Red Blood Count 3.70 10^6/uL (3.85-5.65); White Blood Count 9.09 10^3/uL (3.29-11.43)
[2025-07-27 00:57] LABS: Alanine Aminotransferase 10 U/L (0-33); Albumin Level 4.7 g/dL (3.5-5.2); Alkaline Phosphatase 95 U/L (35-105); Anion Gap 16.1 (5-19); Aspartate Amino Transferase 13 U/L (0-32); Blood Urea Nitrogen 28 mg/dL (8-23); Calcium 9.5 mg/dL (8.5-10.5); Carbon Dioxide 24 mmol/L (22-29); Chloride 101 mmol/L (98-107); Globulin 2.5 g/dL (1.3-4.6); Glucose 129 mg/dL (65-115); Lipase 82 U/L (13-60); Magnesium 1.9 mg/dL (1.7-2.3); NT Pro B Type Natriuretic Pept 1106 pg/mL (0-450); Osmolality Calculated 291 mOsm/kg (285-295); Potassium 4.1 mmol/L (3.5-5.1); Sodium 137 mmol/L (136-145); Total Protein 7.2 g/dL (6.6-8.7)
[2025-07-27 01:22] LABS: CRP High Sensitivity Cardiac 0.370 mg/dL (0.0-0.3)
--- NOTE | 2025-07-27 02:14 | W.ED.CHESTPA ---
HPI - Chest Pain General: Chief Complaint: Chest Pain Stated Complaint: CP Time Seen by Provider: 07/26/25 23:50 History of Present Illness: Patient is a 80-year-old female with a history of coronary artery bypass grafting (CABG), DM, congestive heart failure (ejection fraction previously documented as 13?15%), and hyperlipidemia who presents with acute onset of severe, central chest pressure beginning around 9 PM while preparing for a trip. The pain is described as pressure in the middle of the chest without radiation, associated with increased work of breathing but no diaphoresis or vomiting. She denies leg swelling, significant fluid retention, or recent changes in her baseline cardiac status. She reports occasional abdominal discomfort attributed to gas, intermittent constipation, and diarrhea, but no current abdominal pain. She has previously tried nitroglycerin (years ago) without effect. Initially had a TTE soon after her CABG 1.5y but has not had any provocative testing since before her surgery. Associated symptoms: Deny abdominal pain, dyspnea, fever(s) or palpitations Related Data Home Medications ?Medication ?Instructions ?Recorded ?Confirmed atorvastatin 80 mg tablet 80 mg PO QPM 07/27/25 07/27/25 bumetanide 1 mg tablet 1 mg PO BID 07/27/25 07/27/25 carvedilol 6.25 mg tablet 6.25 mg PO BID 07/27/25 07/27/25 empagliflozin 25 mg tablet 25 mg PO DAILY 07/27/25 07/27/25 (Jardiance) fluticasone propionate 50 1 spray intranasal DAILY PRN 07/27/25 07/27/25 mcg/actuation nasal allergies spray,suspension metformin 1,000 mg tablet 1,000 mg PO BID 07/27/25 07/27/25 pantoprazole 40 mg tablet,delayed 40 mg PO DAILY PRN Acid Reflux 07/27/25 07/27/25 release sacubitril 24 mg-valsartan 26 mg 1 tab PO BID 07/27/25 07/27/25 tablet Held on 07/28/25. Instructions: Resume on 08/03/25. Please review this medication with your primary care provider and keep a blood pressure log before resuming this medication due to your low blood pressures. tramadol 50 mg tablet 50 mg PO Q8H PRN Pain 07/27/25 07/27/25 Previous Rx's ?Medication ?Instructions ?Recorded aspirin 81 mg tablet,delayed 81 mg PO DAILY 90 days #90 tabs 07/28/25 release clopidogrel 75 mg tablet 75 mg PO DAILY 90 days #90 tabs 07/28/25 ranolazine 500 mg tablet,extended 500 mg PO BID 60 days #120 tabs 07/28/25 release,12 hr Allergies Allergy/AdvReac Type Severity Reaction Status Date / Time No Known Allergies Allergy Verified 07/26/25 23:55 Review of Systems General: Reports: 10 or more systems reviewed and unremarkable except in HPI and below Const: Denies: fever(s) or chills Eyes: Denies: change in vision or eye discharge Card: Reports: chest pain; Denies: palpitations or swelling of feet/ankles Resp: Denies: dyspnea or productive cough GI: Denies: abdominal pain or diarrhea Musc: Denies: neck pain or back pain Skin/Breast: Denies: rash or jaundice Neuro: Denies: headache(s), numbness in extremities or weakness in extremities Aroldo/Lymph: Denies: easy bruising or easy bleeding PFS ED PFSH: Medical History (Updated 07/29/25 @ 10:08 by Casey Lee DO) Coronary artery disease Physical Exam Narrative: EXAM NARRATIVE: Patient overall well-appearing, afebrile and vital signs stable on arrival, no acute distress. head normocephalic, PERRL, moist mucous membranes, no cervical LAD. breathing comfortably on RA, saturating well, clear BL and no adventitious breath sounds, able to speak in full sentences without getting SOB, no signs of respiratory distress. NSR with no murmurs, no leg swelling, 2+ pulses throughout, good cap refill. Abdomen soft, nontender, nondistended, no localizing or peritonitic signs, no overlying skin changes, no CVA ttp. 4 extremities without apparent deformity or injury. GCS 15, AAOx4, able to answer questions and follow commands appropriately, moving all 4 extremities symmetrically and spontaneoulsy. Normal mood and affect. Course Vital Signs: Vital signs: Vital Signs Temperature 97.9 F 07/28/25 11:41 Pulse Rate 72 07/28/25 12:29 Respiratory Rate 18 07/28/25 11:41 Blood Pressure 111/68 07/28/25 12:29 Pulse Oximetry 95 07/28/25 12:29 Oxygen Delivery Me thod Room Air 07/28/25 03:54 MDM - Chest Pain Medical Decision Making -ddx: ACS, dyshrthymia, CHF exac, AAA, aortic dissection, URI, PNA, pericarditis, GERD, gastritis -patient with heavy hx of cardiac sz, coming in with exertional CP tonight, assoc with SOB, no known vascular hx, has a EF 10%, has not had recent provocative testing, pain rated at a 9/10 on arrival, cardiac bowens with CTA aorta ordered bc of back radiation, regardless of negative bowens, advised admission for close monitoring and to see Cards to see if new provocative testing would be indicated. -patient with no relief at all from NTG, moderately so wtih morphine. CTA aorta negative for dissection, AAA, obvious PE, or other acute abnl. BNP 1106, unknown baseline but hx of 10%, doesnt appear clinically overlaoded at this time, on RA, no leg swelling. troponins mildly elevated with no known baseline, but small delta, EKG not cocnerning for ongoing ishcemia. lipase 82, has occasional NV and possible has DM gastroparesis based on what she describes, no epigastric ttp. -patient remained clinically stable, pain was mostly improved but still present, HEART score of 7, no recent testing since her CABG 1.5y ago and shared decision making with patient and her daughter, admitted patient for high risk chest pain in stable condition. Lab Data 07/28/25 07:49 07/28/25 07:49 Radiology Impressions Chest X-Ray 07/27/25 00:23 IMPRESSION: No definite acute infiltrate or effusion. Chest/Abdomen CTA 07/27/25 00:23 IMPRESSION: 1. No definite significant pulmonary embolism or right heart strain. 2. No aortic dissection. COMMENTS: 1. Consistent with the [employer]'s Incidental Findings Committee white paper (J Am Argelia Radiol 2018): Any incidental renal lesion less than 1 cm or classified as too small to characterize, or any incidental cystic renal lesion characterized as simple-appearing, is likely benign. No follow-up imaging is recommended for these lesions per consensus recommendations based on imaging criteria. 2. Consistent with the [employer]'s Incidental Findings Committee white paper (J Am Argelia Radiol 2015): In patients aged 35 years and older with an incidental thyroid nodule equal to or greater than 1.[address], MRI or extrathyroidal US, further evaluation with dedicated thyroid US is recommended for patients with normal life expectancy and without comorbidities. For smaller nodules without suspicious features, no further evaluation or follow up is recommended. Laboratory Results WBC 9.09 10^3/uL (3.29-11.43) 07/27/25 00:02 RBC 3.70 10^6/uL (3.85-5.65) L 07/27/25 00:02 Hgb 10.70 g/dL (11.27-16.99) L 07/27/25 00:02 Hct 32.8 % (36-47) L 07/27/25 00:02 MCV 88.6 fl (85-98) 07/27/25 00:02 MCH 28.9 pg (27-33) 07/27/25 00:02 MCHC 32.6 g/dL (30-55) 07/27/25 00:02 RDW 13.6 % (12.1-15.1) 07/27/25 00:02 Plt Count 236 10^3/cmm (157-399) 07/27/25 00:02 MPV 10.9 fL (7.4-10.4) H 07/27/25 00:02 Neut % (Auto) 61.7 % 07/27/25 00:02 Lymph % (Auto) 24.9 % 07/27/25 00:02 [place] % (Auto) 9.0 % 07/27/25 00:02 Eos % (Auto) 3.4 % 07/27/25 00:02 Baso % (Auto) 0.8 % 07/27/25 00:02 Neut # (Auto) 5.61 10^3/uL (1.8-7.7) 07/27/25 00:02 Lymph # (Auto) 2.3 10^3/uL (0.8-4.8) 07/27/25 00:02 [place] # (Auto) 0.8 10^3/uL (0.2-0.9) 07/27/25 00:02 Eos # (Auto) 0.3 10^3/uL (0.0-0.8) 07/27/25 00:02 Baso # (Auto) 0.1 10^3/uL (0.0-0.1) 07/27/25 00:02 Nucleated RBC % (auto) 0 % 07/27/25 00:02 Nucleated RBCs # 0.0 /100WBC 07/27/25 00:02 PT 13.30 SECONDS (12.1-14.9) 07/27/25 00:02 INR 0.94 (0.8-1.2) 07/27/25 00:02 APTT 27.0 SECONDS (23.9-36.7) 07/27/25 00:02 Sodium 137 mmol/L (136-145) 07/27/25 00:02 Potassium 4.1 mmol/L (3.5-5.1) 07/27/25 00:02 Chloride 101 mmol/L (98-107) 07/27/25 00:02 Carbon Dioxide 24 mmol/L (22-29) 07/27/25 00:02 Anion Gap 16.1 (5-19) 07/27/25 00:02 BUN 28 mg/dL (8-23) H 07/27/25 00:02 Creatinine 1.2 mg/dL (0.5-0.9) H 07/27/25 00:02 GFR Calculation Not Reportable 07/27/25 00: Glucose 129 mg/dL (65-115) H 07/27/25 00:02 Calculated Osmolality 291 mOsm/kg (285-295) 07/27/25 00:02 Lactic Acid 0.9 mmol/L (0.5-2.2) 07/27/25 00:02 Calcium 9.5 mg/dL (8.5-10.5) 07/27/25 00:02 Phosphorus 3.8 mg/dL (2.5-4.5) 07/27/25 00:02 Magnesium 1.9 mg/dL (1.7-2.3) 07/27/25 00:02 Total Bilirubin 0.2 mg/dL (0.15-1.2) 07/27/25 00:02 AST 13 U/L (0-32) 07/27/25 00:02 ALT 10 U/L (0-33) 07/27/25 00:02 Alkaline Phosphatase 95 U/L (35-105) 07/27/25 00:02 Troponin T Baseline 9 ng/L (0-10) 07/27/25 00:02 Troponin T 120 Minute 9.61 ng/L (0-10) 07/27/25 01:59 Delta Troponin T 0.61 ABS# (0-10) 07/27/25 01:59 C-React Prot High Sens 0.370 mg/dL (0.0-0.3) H 07/27/25 00:02 NT-Pro-B Natriuret Pep 1106 pg/mL (0-450) H 07/27/25 00:02 Total Protein 7.2 g/dL (6.6-8.7) 07/27/25 00:02 Albumin 4.7 g/dL (3.5-5.2) 07/27/25 00:02 Globulin 2.5 g/dL (1.3-4.6) 07/27/25 00:02 Lipase 82 U/L (13-60) H 07/27/25 00:02 All radiology interpretation(s) finalized by discharge Clincial Decision Support The following clinical decision support tools were used to aid in care of the patient HEART Score -> History: Highly Suspicious, EKG: Non-specific Changes, Age: 65 or more yrs, Risk Factors: >/=3 Risk Factors, Troponin: Baseline Trop <16 ng/L. Resulting HEART Score: 7. Discharge Plan Discharge Patient Disposition: Admitted As Inpatient Admit Provider: Ilan Fuentes Clinical Impression: Coronary artery disease with unstable angina pectoris, S/P CABG (coronary artery bypass graft) Condition: Stable Discharge Diet: Cardiac Discharge Activity: Resume usual activity Coding Level of Care Code ED Live Ammunition Inspector for [facility] Heart Score HEART Score Components History: Highly Suspicious EKG: Non-specific Changes Age: 65 or more yrs Risk Factors: >/=3 Risk Factors Troponin: Baseline Trop <16 ng/L HEART Score RESULT HEART Score: 7
[2025-07-27 02:26] LABS: Troponin 5 2HR 9.61 ng/L (0-10); Troponin 5 2HR Delta 0.61 ABS# (0-10)
--- NOTE | 2025-07-27 02:52 | P.HP_ITS ---
Providers/Chief Complaint 2 Primary Care Provider: Crystal Garcia Chief Complaint: Chest pain History of Present Illness Treva Day is a 80 year old female with reported history significant for coronary artery disease status post CABG in 2022, HFrEF, EF 15% with AICD in place, type 2 diabetes, and hyperlipidemia, who presents with complaints of chest pain. The patient states that the chest pain began at approximately 9 PM on 07/26/2025 and was located at the central chest as well as the right breast. She describes the pain as a constant pressure type pain which was improved after taking morphine in our emergency department. 2 nitroglycerin were not helpful. There was radiation to the back and the pain peaked at a 10 out of 10 in intensity. She says that the pain experienced does remind her of her prior pain that led to her undergoing CABG procedure. Also mention occasional dizziness this past week as well as shortness of breath associated for pain. Denies any nausea or vomiting Medications/Allergies Allergies Allergy/AdvReac Type Severity Reaction Status Date / Time No Known Allergies Allergy Verified 07/26/25 23:55 Vitals/I&O/Wt Last Vital Signs Temp 97.4 F L 07/26/25 23:49 Pulse 84 07/27/25 00:28 Resp 18 07/27/25 00:49 BP 154/79 07/27/25 00:28 Pulse Ox 95 07/27/25 00:49 O2 Del Method Room Air 07/26/25 23:49 Weight last 48 hrs Weight 56.699 kg Physical Exam 2 Const: COMMON NORMALS: no acute distress and patient oriented x3 Chest: COMMONS NORMALS: normal palpation of entire chest wall Resp: COMMON NORMALS: normal respiratory effort and clear to auscultation bilaterally Cardio: COMMON NORMALS: regular rate, regular rhythm, S1 normal heart sound present and S2 normal heart sound present GI: COMMON NORMALS: Soft to palpation and non-tender Extremity: COMMON NORMALS: no pedal edema Neuro: COMMON NORMALS: moves all extremities Skin: COMMON NORMALS: no rashes or lesions noted Data 07/27/25 00:02 07/27/25 00:02 A&P Assessment and plan 1. Chest pain, unspecified type: - Patient felt to be high risk for ACS - Admit to obs - Start heparin drip - Will request cardiac stress testing - PRN morphine for pain 2. Type 2 diabetes mellitus without complication, without long-term current use of insulin: - Hold home metformin, place on sliding scale insulin regiment while hospitalized 3. HFrEF (heart failure with reduced ejection fraction): - not felt to be in exacerbation - Patient or outpatient phlebotomist present is uncertain of home medications, doses, or frequency. Relevant meds to be reodered when this is clarified 4. Hyperlipidemia, unspecified hyperlipidemia type: - Continue home statin when clarified PDMP PDMP Reviewed: Not Reviewed Attestations 2 Medical Necessity Statement*: Patient requires hospital admission for evaluation of chest pain, anticipate less than two midnight stay Coding Level of Care Code Acute Code for [facility] Fwd Diagnoses Chest pain, unspecified type R07.9 Chest pain type: unspecified Type 2 diabetes mellitus without complication, without long-term current use of insulin E11.9 Diabetes mellitus salvage determiner insulin use: without penitentiary use Diabetes mellitus complication status: without complication HFrEF (heart failure with reduced ejection fraction) I50.20 Hyperlipidemia, unspecified hyperlipidemia type E78.5 Hyperlipidemia type: unspecified
[2025-07-27] MEDS: heparin 5,000 unit/mL INJ 1 mL IVP (04:13)
[2025-07-27] MEDS: heparin drip 25,000 UNIT/500 ML PREMIX 16 UNIT IV (04:14)
--- NOTE | 2025-07-27 04:25 | NMCV_ITS ---
NM dave perf SPECT r/s* [id number] Treva Day Age: 80 Gender: F : 1945 Exam Date: 07/27/2025 09:23 Ordering Phys: Ilan Fuentes MD Technologist: JIM Medrano Exam Location: [facility] Indications: cp STRESS TEST [facility] IMAGE PROTOCOL Rest/Stress 1 Lexiscan Day Radiopharmaceutical Dose (mCi) Administration Site Administered by Rest: Tc-99m 10.7 IV Jessica Cuevas, CREATIVE TECHNOLOGIST Sestamibi Stress:Tc-99m 32.8 IV Jessica Sanchezgle, CREATIVE TECHNOLOGIST Sestamibi Rest: 27-Jul-2025 60 Discovery 630 Stress: 27-Jul-2025 30 Discovery 630 0.4mg Lexiscan. Images obtained in supine and prone position. SPECT RESULTS Technical Quality: Good Raw Data Analysis: Normal Image Corrections: No attenuation or motion correction applied Summed Stress Score: 22 Summed Rest Score: 22 Summed Difference Score: 2 PERFUSION FINDINGS There is large area of partially reversible perfusion defect seen in apical, anterior, inferior, mid septal and apical lateral huber. This is consistent with large area of prior infarct with significant chiquita-infarct ischemia in distribution of all 3 coronary arteries. FUNCTIONAL RESULTS (calculated via Gated SPECT) Stress Image LV EF (%): 37 Stress EDV (mL):138 TID: 1.09 Stress ESV (mL):87 FUNCTIONAL FINDINGS: LV systolic function is moderately reduced with EF of 37% IMPRESSIONS 1. Abnormal myocardial perfusion imaging with large areas of prior infarct with significant chiquita-infarct ischemia seen in distribution of all 3 coronary arteries. 2. LV systolic function is moderately reduced with a EF of 37%. Frederic Hooper MD (Electronically Signed) Final Date: 27 July 2025 11:55 S
--- NOTE | 2025-07-27 06:25 | ECG_ITS ---
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 Measurements Intervals [place] Rate: 84 P: 64 NV: 237 QRS: -22 QRSD: 121 T: 144 QT: 370 QTc: 439 Interpretive Statements SINUS RHYTHM WITH FIRST DEGREE AV BLOCK BORDERLINE LEFT AXIS DEVIATION [QRS AXIS < -20] POSSIBLE RIGHT VENTRICULAR CONDUCTION DELAY [RSR (QR) IN V1/V2] LEFT VENTRICULAR HYPERTROPHY AND ST-T CHANGE [VOLTAGE CRITERIA PLUS ST/T ABNORMALITY] Compared to ECG 07/26/2025 23:55:57 No significant changes Electronically Signed On 07-27-2025 10:41:46 TRUCK HOP by Alonso Higuera M.D. [email or web address]
--- NOTE | 2025-07-27 07:30 | P.PN_ITS ---
Subjective 2 Subjective: Patient is a very pleasant 80-year-old female seen and examined at bedside on hospital rounds today. Patient sitting up in bed stating that after she is she was given medication this morning patient has had complete resolution of chest pain. Currently n.p.o. awaiting for stress test. Patient elevated BNP 1106, elevated lipase 82. Vital signs are stable, oxygen saturation greater than 95% on room air. RBC 3.70, hemoglobin 10.70, stable. Will continue to manage patient's comorbidities inpatient, await stress test results and further cardiac interventions if warranted. All questions and concerns addressed with the patient at the bedside today. Vitals/I&O/Wt Last Vital Signs Temp 97.5 F L 07/27/25 04:25 Pulse 74 07/27/25 05:23 Resp 14 07/27/25 04:35 BP 139/73 07/27/25 04:35 Pulse Ox 98 07/27/25 04:35 O2 Del Method Room Air 07/27/25 05:23 Weight last 48 hrs Weight 61.235 kg Weight 56.699 kg Weight 56.699 kg Physical Exam 2 Const: COMMON NORMALS: no acute distress and patient oriented x3 Chest: COMMONS NORMALS: normal palpation of entire chest wall Resp: COMMON NORMALS: normal respiratory effort and clear to auscultation bilaterally AUSCULTATION: clear to auscultation bilaterally Cardio: COMMON NORMALS: regular rate, regular rhythm, S1 normal heart sound present and S2 normal heart sound present RATE: regular rate RHYTHM: r egular rhythm HEART SOUNDS: S1 normal heart sound present and S2 normal heart sound present GI: COMMON NORMALS: Soft to palpation and non-tender PALPATION: Yes Soft to palpation Extremity: COMMON NORMALS: no pedal edema Neuro: COMMON NORMALS: patient oriented x3 and moves all extremities Skin: COMMON NORMALS: no rashes or lesions noted GENERAL SKIN EXAM: no rashes or lesions noted Data 07/27/25 00:02 07/27/25 00:02 A&P Assessment and plan 1. Chest pain, unspecified type: - Patient felt to be high risk for ACS - Continue heparin drip - Pending cardiac stress testing - PRN morphine for pain 2. Type 2 diabetes mellitus without complication, without long-term current use of insulin: - Hold home metformin - Continue SSI, POC 3. HFrEF (heart failure with reduced ejection fraction): - not felt to be in exacerbation - Continue cardioprotective medications 4. Hyperlipidemia, unspecified hyperlipidemia type: - Continue home statin when clarified Plan: 07/27/2025 Awaiting stress test, further interventions pending stress test results. Coordinating with nursing for updated home medication list, once this is updated home medications will be resumed. Continue heparin drip in the meantime. Continue sliding scale insulin for management of diabetes. Patient states that she was leaving [facility] to go to [place] for the holiday, reassured patient that if her stress test is negative that we would discharge her home should be able to continue with her plans but given her high risk for ACS she will remain admitted until stress test results are in. PDMP PDMP Reviewed: Not Reviewed Attestations 2 Medical Necessity Statement*: Patient requires hospital admission for evaluation of chest pain, anticipate less than two midnight stay, awaiting stress test results. Coding Level of Care Code 08646 Diagnoses Chest pain, unspecified type R07.9 Chest pain type: unspecified Type 2 diabetes mellitus without complication, without long-term current use of insulin E11.9 Diabetes mellitus complication status: without complication Diabetes mellitus retirement insulin use: without exterminator termite use HFrEF (heart failure with reduced ejection fraction) I50.20 Hyperlipidemia, unspecified hyperlipidemia type E78.5 Hyperlipidemia type: unspecified
--- OUTSIDE RECORDS SUMMARY | 2025-07-27 07:57 | XMS_ITS | Encounter Summary ---
Author Organization [facility] Address 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 Office Visit [facility] [address] [place] [phone] Miranda Jeffers MD [address] [place] [phone] Cody Fregoso ANP [address] [place] [phone] 01/14/2026 8:00 AM CDT Procedure visit [facility] [address] [place] [phone] Miranda Jeffers MD [address] [place] [phone] documented as of this encounter Visit Diagnoses Not on filedocumented in this encounter
--- OUTSIDE RECORDS SUMMARY | 2025-07-27 07:57 | XMS_ITS | Patient Health Record ---
Author Organization [facility] Address [address] [place] [address] Care Team Providers Care Health Editor Name Role Phone Crystal Garcia APRN Primary Care Provider Gustavo Oconnell Unavailable [phone] Sajan Mcgregor Unavailable [phone] Felisa Riley Unavailable [phone] Allergies Allergen (clinical drug ingredient) Drug/Non Drug [...] 06/06/2022 Administ pedro luis Influenza (whole), CPT 31857 Inactive Unknown 08/15/2018 Administered Pneumococcal conjugate PCV [...] W/U Status Risk Notes Problem Chronic pain (23265412) Other chronic pain (G89.29) Active confirmed Problem Mitral valve disorder (63941675) Nonrheumatic mitral (valve) insufficiency (I34.0) Active confirmed Problem Tricuspid valve disorder, non-rheumatic (346923824) Nonrheumatic tricuspid (valve) insufficiency (I36.1) Active confirmed Problem Acute on chronic systolic heart failure (264754394) Acute on chronic systolic (congestive) heart failure (I50.23) Active confirmed Problem Hypoxemia (321022878) Hypoxemia (R09.02) Active confirmed Problem Gastroesophageal reflux disease without esophagitis (579519704) Gastroesophageal reflux disease without esophagitis (K21.9) Active confirmed Problem Pleural effusion (51429057) Pleural effusion (J90) Active confirmed Problem Significant coronary bypass graft disease (864348600) Coronary artery disease involving coronary bypass graft of [place] heart without angina pectoris (I25.810) Active confirmed Problem Hypersomnia (46207680) Hypersomnia (G47.10) Active confirmed Problem Electrocardiogram abnormal (911502984) Abnormal EKG (R94.31) Active confirmed Problem Dizziness (878062827) Dizziness (R42) Active confirmed Problem Sinus tachycardia (81307620) Sinus tachycardia (R00.0) Active confirmed Problem Chronic systolic heart failure (061841095) Chronic systolic congestive heart failure (I50.22) Active confirmed Problem Hypoxia (213847351) Hypoxia (R09.02) Active con firmed Problem Atherosclerotic heart disease of [place] coronary artery without angina pectoris (370336394973617) Arteriosclerosis of coronary artery (I25.10) Active confirmed Problem Bilateral lower extremity edema (915077092) Bilateral lower extremity edema (R60.0) Active confirmed Problem Hypotension (61550479) Hypotension (I95.9) Active confirmed Problem Hypertension (34641202) Hypertension (I10) Active confirmed Problem Chest pain (36110970) Chest pain (R07.9) Active confirmed Problem Ischemic cardiomyopathy (417616877) Cardiomyopathy, ischemic (I25.5) Active confirmed Problem Plain X-ray of chest abnormal (finding) (6226659010) Abnormal chest x-ray (R93.89) Active confirmed Problem Dependence on continuous supplemental oxygen (76969399932900) Dependence on continuous supplemental oxygen (Z99.81) Active confirmed Problem Peripheral circulatory disorder associated with diabetes mellitus (750092887) Controlled type 2 diabetes mellitus with other circulatory complication, without long-term current use of insulin (E11.59) Active confirmed Problem Mixed hyperlipidemia (691860707) Mixed hyperlipidemia (E78.2) Active confirmed Problem Hyperglycemia due to type 2 diabetes mellitus (948241160815427) Type 2 diabetes mellitus with hyperglycemia, without long-term current use of insulin (E11.65) Active confirmed Problem Tinea unguium (982543092) Tinea unguium (B35.1) Problem resolved confirmed Problem Postmenopausal atrophic vaginitis (57148692) Postmenopausal atrophic vaginitis (N95.2) Problem resolved confirmed Problem Osteoarthritis of knee (243922582) Osteoarthritis of knee, unspecified (M17.9) Active confirmed Problem Postmenopausal state (97830786) Asymptomatic menopausal state (Z78.0) Active confirmed Vital Signs Heart Rate 84 /min 02/25/2025 Blood pressure diastolic 74 mm Hg 02/25/2025 Oximetry 99 % 02/25/2025 Weight-kg 56.7 kg 02/25/2025 Height 62 in 02/25/2025 Blood pressure systolic 144 mm Hg 02/25/2025 Weight 125 lbs 02/25/2025 BMI 22.86 kg/m2 02/25/2025 Encounters Encounter Location Date Provider Diagnosis [facility] [address] [place] [phone] 02/25/2025 Gustavo Fernando Acute on chronic systolic (congestive) heart failure I50.23 ; SOB (shortness of breath) on exertion R06.02 ; Swelling R60.9 ; Mixed hyperlipidemia E78.2 ; Type 2 diabetes mellitus with hyperglycemia, without long-term current use of insulin E11.65 ; Arteriosclerosis of coronary artery I25.10 and Hx of CABG Z95.1 [facility] [address] [place] [phone] 08/21/2024 Felisa Riley Other fatigue R53.83 ; Coronary artery disease involving coronary bypass graft of [place] heart without angina pectoris I25.810 ; Nonrheumatic mitral (valve) insufficiency I34.0 ; Nonrheumatic tricuspid (valve) insufficiency I36.1 ; Chronic systolic congestive heart failure I50.22 ; Mixed hyperlipidemia E78.2 ; Type 2 diabetes mellitus with hyperglycemia, without long-term current use of insulin E11.65 and Gastroesophageal reflux disease without esophagitis K21.9 [facility] [address] [place] [address] [place] [address] 08/06/2024 Sajan Mcgregor Assessments Encounter Date Diagnosis (ICD Code) Assessment Notes Treatment Notes Treatment Clinical Notes Section Notes 08/21/2024 Other fatigue (ICD-10 - R53.83) Fatigue is thought to be secondary to reduced EF. Continue with conservative management. 02/25/2025 SOB (shortness of breath) on exertion (ICD-10 - R06.02) 02/25/2025 Acute on chronic systolic (congestive) heart failure (ICD-10 - I50.23) EF 15-20% per April 2024 echo, s/p AICD. Increase carvedilol to 6.25 mg BID. Continue current dose of bumetanide, Entresto, and Jardiance for GDMT. 02/25/2025 Swelling (ICD-10 - R60.9) 08/21/2024 Coronary artery disease involving coronary bypass graft of [place] heart without angina pectoris (ICD-10 - I25.810) No anginal symptoms. Status post CABG in November 2021. Continue with conservative management. 08/21/2024 Nonrheumatic mitral (valve) insufficiency (ICD-10 - I34.0) Repeat echo annually to monitor her moderate mitral regurgitation. 02/25/2025 Mixed hyperlipidemia (ICD-10 - E78.2) Continue current dose of atorvastatin (Lipitor) for high-intensity statin therapy. 02/25/2025 Type 2 diabetes mellitus with hyperglycemia, without long-term current use of insulin (ICD-10 - E11.65) Maintained on Jardiance and metformin. 08/21/2024 Nonrheumatic tricuspid (valve) insufficiency (ICD-10 - I36.1) 08/21/2024 Chronic systolic congestive heart failure (ICD-10 - I50.22) She has an EF in the 15-20% range based on most recent echo and has been referred for consideration of AUTO TRANSMISSION SPECIALIST-D. The patient has an appointment with Dr. Jeffers in [place] on October 03, 2024. 02/25/2025 Arteriosclerosis of coronary artery (ICD-10 - I25.10) Patient is not having anginal symptoms. Continue conservative therapy. 02/25/2025 Hx of CABG (ICD-10 - Z95.1) Status post CABG in November 2022. Continue current dose of aspirin. 08/21/2024 Mixed hyperlipidemia (ICD-10 - E78.2) Continue current dose of atorvastatin for high-intensity statin. 08/21/2024 Type 2 diabetes mellitus with hyperglycemia, [...] Name Order Date Mammogram Screen Mina Vik w/[id number] XR Outside CD 04/12/2023 Electrocardiogram 12 Lead Tracing-[id number] 02/26/2023 Sleep study > 3 Par-[id number] 05/19/2024 Sleep Study with CPAP-[id number] 05/19/2024 PFT with FRC: (NO TGV) 05/19/2024 Next Appt Details Provider Name:Gustavo King , 09/01/2025 01:00:00 PM, [address] [place] [address], [phone], Insurance Providers Payer Name Payer Address Payer Phone Subscriber Number Group Number Insured Name Patient Relationship to Insured Coverage Start Date Coverage End Date [employer] Medicare Replacement [address] [address] [place] [address] [id number] LAVONNE BERRIOS Self - patient is the insured 8 [address] [address] [place] [address] [id number] LAVONNE BERRIOS Self - patient is the [...]
--- OUTSIDE RECORDS SUMMARY | 2025-07-27 07:57 | XMS_ITS ---
Demographics Address [address] [place] [address] Home Phone Home Phone Phone Unavailable Preferred Language en Marital Status Unknown Protestant Affiliation Unknown Race White Ethnic Group Unknown Author Organization [facility] Care Team Providers Care Calciner Operator Helper Name Role Phone Stan Davis Unavailable Unavailable Abbi Streeter Unavailable Unavailable Gonzales Álvarez Unavailable Unavailable Allergies and adverse reactions No Known Allergies Care Team Name Role Address Phone Organization Dates Gonzales Álvarez PCP [address] [place], [address], [place] (Office): : : [facility] 01/03/2023 - 01/05/2023 Stan Davis [address], [place], [address], [place] (Office): : [facility] 01/03/2023 - 01/05/2023 Abbi Streeter [address], [place], [address], [place] (Office): : [facility] [...] Immunization Status Vaccine Details Vaccine Code CodeSystem Eg e Notes TB 2 Step Mantoux Skin Test completed tuberculin skin test; unspecified formulation lotNumber: [id number] expiry: 02/08/2025 Mfg: [employer] Given 0.1 ml Left Forearm intradermally Step [...] Concern Status 1 ATHEROSCLEROTIC HEART DISEASE OF [place] CORONARY ARTERY WITHOUT ANGINA PECTORIS 01/04/[address] active 2 CHRONIC PAIN SYNDROME 01/04/[address] active 3 CHRONIC SYSTOLIC (CONGESTIVE) HEART FAILURE 01/04/[address] active 4 DYSPNEA, UNSPECIFIED 01/04/[address] active 5 ESSENTIAL (PRIMARY) HYPERTENSION 01/04/[address] active 6 HYPERLIPIDEMIA, UNSPECIFIED 01/04/[address] active 7 HYPOTENSION, UNSPECIFIED 01/04/[address] active 8 MUSCLE WASTING AND ATROPHY, NOT ELSEWHERE CLASSIFIED, LEFT LOWER LEG 01/04/[address] active 9 MUSCLE WASTING AND ATROPHY, NOT ELSEWHERE CLASSIFIED, RIGHT LOWER LEG 01/04/[address] active 10 MUSCLE WEAKNESS (GENERALIZED) 01/04/[address] active 11 OTHER ABNORMALITIES OF GAIT AND MOBILITY 01/04/[address] active 12 OTHER LACK OF COORDINATION 01/04/[address] active 13 PERSONAL HISTORY OF COVID-19 01/04/[address] active 14 TYPE 2 DIABETES MELLITUS WITHOUT COMPLICATIONS 01/04/[address] active 15 UNSPECIFIED SYSTOLIC (CONGESTIVE) HEART FAILURE 01/04/[address] active 16 WHEEZING 01/04/[address] active Reason for Referral No Reasons for Referral Entered Social History Social History Observation Description Start Date End Date Code Code System Current Smoking Status Tobacco smoking consumption unknown 328146992 SNOMED CT Sex Assigned At Female 1945 52223-9 [facility] Gender Identity Sexual Orientation Vital Signs Code Code System Vitals Name Values and Units Timing Information 00528-3 [facility] Pain Level Value=0.0 01/05/2023 9279-1 [facility] Respiratory Rate Value=20.0 Units=/m in 01/05/2023 8462-4 [facility] Blood Pressure-Diastolic Value=44 Un its=mmHg 01/05/2023 8480-6 [facility] Blood Pressure-Systolic Value=86 Uni ts=mmHg 01/05/2023 8310-5 [facility] Body Temperature Value=98.0 Units= F 01/05/2023 8867-4 [facility] Heart rate Bkbvn=222.0 Units=/min 01/05/2023 13916-4 [facility] O2 % BldC Oximetry Value=96.0 Units= % 01/05/2023 30536-7 [facility] Weight Tnnce=099.2 Units=Lbs 01/2023 2339-0 [facility] Blood Sugar Hnois=931.0 Units=mg/dL 01/05/2023 8302-2 [facility] Height Value=63.0 Units=Inches 01/03/2023
--- OUTSIDE RECORDS SUMMARY | 2025-07-27 07:57 | XMS_ITS | Clinical Summary ---
Author Organization [facility] Address [address] [place] [address] Phone Care Team Providers Care Food Preparation Kitchen Aide Name Role Phone Unavailable Primary Care Provider [...] STL ABSTRACTION Provider, Abstract 07/16/2025 8:00 AM LABEL DRIER Procedure visit [facility] [address] [place] [address] Miranda Jeffers MD Congestive heart [...] st Contact Info) Description 10/15/2025 3:00 PM LABEL DRIER Office Visit [facility] [address] [facility] [address] [place] [phone] Miranda Jeffers MD [address] [place] [phone] Cody Fregoso, CHANA [address] [facility] [address] [place] [phone] 01/14/2026 8:00 AM CDT Procedure visit [facility] [address] [facility] [address] [place] [phone] Miranda Jeffers MD [address] [facility] [address] [place] [phone] Health Maintenance Due Date Last Done [...] 08/15/2025 02/13/2025 Medical Devices Implanted Type Area Marketing Development Manager Device Identifier Shelf Expiration Date Model / Serial / Lot Defib Icd [place] Xt Vr Mri [id number] Df4 Sngl Chmbr Surescan [id number] - [id number] Implanted:Qty: 1 on 11/27/2024 by Miranda Jeffers MD at [facility] Defibrillator Left: Chest Wall [employer]- CARD RHYTHM MGMT [id number] 05/17/2025 [id number] / [id number] / Lead Sprint Quattro Secure 55cm [id number] - Csc - [id number] Implanted:Qty: 1 on 11/27/2024 by Miranda Jeffers MD at [facility] Lead Left: Chest Wall [employer]- CRM - BULK BUY [id number] 06/09/2026 [id number] / [id number] / Procedures Procedure Name Priority Date/Time Associated Diagnosis Comments SC REM INTERROG PM/LDLS PM/IDS <90 D TECH REVIEW Routine 07/16/2025 3:58 AM LABEL DRIER Congestive heart failure, unspecified HF chronicity, unspecified heart failure type (CMS/HCC) Ischemic dilated cardiomyopathy (CMS/HCC) Automatic implantable cardioverter-defibril lator in situ SC INTERROGATION EVAL REMOTE </90 D 1/2/MASTIC SPRAYER LD DFB Routine 07/16/2025 3:58 AM LABEL DRIER Congestive heart failure, unspecified HF chronicity, unspecified heart failure type (CMS/HCC) Ischemic dilated cardiomyopathy (CMS/HCC) Automatic implantable cardioverter-defibril lator in situ from Last 3 Months Results * SC INTERROGATION EVAL REMOTE </90 D 1/2/MASTIC SPRAYER LD DFB, SC REM INTERROG PM/LDLS PM/IDS <90 D TECHREVIEW (07/16/2025 3:58 AM LABEL DRIER) 07/16/2025 3:58 AM LABEL DRIER Narrative INTERFACE SYSTEM - 07/16/2025 2:46 PM LABEL DRIER Remote Transmission Report Date of Procedure: July [...] clinic/hospital department from Last 3 Months Insurance [facility] Advance Directives For more information, please contact: [phone] * Full Code (Latest Code Status on File) Date Activated Date Inactivated Comments 11/27/2024 9:42 AM 11/28/2024 3:16 PM * Full Code Date Activated Date Inactivated Comments 11/27/2024 5:53 AM 11/27/2024 9:42 AM
--- NOTE | 2025-07-27 08:20 | PC.PHAR ---
Pt states she does not know her medications and asked me to phone her pharmacy. Transferred most current medications and am waiting for [facility] in [place] to open at 9am for verification. 07/27/25 8:22am
--- NOTE | 2025-07-27 12:43 | PM.CONSULT ---
Documented by User: HOSSEIN Saravia 07/27/25 13:42 Providers/Reason For Consult Consulting Physician/Specialty*: Dr Devine, cardiology Reason for Consult*: chest pain Requesting Physician: Alberta Robin NP Attending Physician: Alberta Robin NP Primary Care Provider: Crystal Garcia History of Present Illness History of Present Illness Treva Day is a 80 year old female with past medical history of CAD s/p CABG 2022, systolic CHF, AICD, type 2 diabetes, hyperlipidemia, history of smoking quit years ago. She presented to the emergency room early this morning with chest pain, not improved with nitroglycerin but resolved with morphine, similar to previous pattern of chest pain. Hemoglobin low, 10.7, creatinine 1.2. She has not had any previous care here, unknown if this is new or her baseline. Troponin series: 9->9. BNP 1106. CRP not significantly elevated. EKG revealing sinus rhythm, LVH by voltage criteria. Stress test today showed previous fixed defects with minimal chiquita-infarct ischemia per Dr Devine. Medications/Allergies Home Medications ?Medication ?Instructions ?Recorded ?Confirmed ?Last Taken ?Type atorvastatin 80 mg tablet 80 mg PO QPM 07/27/25 07/27/25 07/25/25 History bumetanide 1 mg tablet 1 mg PO BID 07/27/25 07/27/25 07/26/25 History carvedilol 6.25 mg tablet 6.25 mg PO BID 07/27/25 07/27/25 07/26/25 History empagliflozin 25 mg tablet 25 mg PO DAILY 07/27/25 07/27/25 07/26/25 History (Jardiance) fluticasone propionate 50 1 spray intranasal DAILY PRN 07/27/25 07/27/25 Unknown History mcg/actuation nasal allergies spray,suspension metformin 1,000 mg tablet 1,000 mg PO BID 07/27/25 07/27/25 07/26/25 History pantoprazole 40 mg tablet,delayed 40 mg PO DAILY PRN Acid Reflux 07/27/25 07/27/25 Unknown History release sacubitril 24 mg-valsartan 26 mg 1 tab PO BID 07/27/25 07/27/25 07/26/25 History tablet tramadol 50 mg tablet 50 mg PO Q8H PRN Pain 07/27/25 07/27/25 Unknown History Allergies Allergy/AdvReac Type Severity Reaction Status Date / Time No Known Allergies Allergy Verified 07/26/25 23:55 Current Medications Generic Name Dose Route Start Last Admin Trade Name Freq PRN Reason Stop Dose Admin Heparin Sodium/Sodium Chloride 25,000 unit in 500 mls @ 0 mls/hr 07/27/25 03:45 07/27/25 04:14 Heparin Drip IV 14.11 unit/kg/hr CONT WILDER 16 mls/hr Protocol Administration Per Protocol Insulin Human Lispro 0 unit 07/27/25 08:00 07/27/25 12:14 Insulin Lispro 100 Unit/1 Ml SUBCUT Not Given [facility]&BEDTIME [facility] Protocol Ondansetron HCl 4 mg 07/27/25 00:43 07/27/25 00:49 Ondansetron 2 Mg/Ml Sdv 2 Ml IVP 4 mg ONCE PRN Administration NAUSEA PFSH Acute PFSH: Medical History (Updated 07/27/25 @ 13:34 by HOSSEIN Saravia) Coronary artery disease Vitals/I&O/Wt Last Vital Signs Temp 97.9 F 07/27/25 08:00 Pulse 76 07/27/25 10:57 Resp 16 07/27/25 08:00 BP 106/50 07/27/25 10:57 Pulse Ox 93 07/27/25 08:00 O2 Del Method Room Air 07/27/25 05:23 07/26/25 07/27/25 07/27/25 22:59 06:59 14:59 Intake Total 120 / 120 Balance 120 / 120 Weight last 48 hrs Weight 135 lb Weight 125 lb Weight 125 lb Physical Exam Const: COMMON NORMALS: no acute distress and patient oriented x3 GENERAL APPEARANCE: cooperative and comfortable ORIENTATION/CONSCIOUSNESS: Yes awake, Yes oriented to person, Yes oriented to place and Yes oriented to time Chest: COMMONS NORMALS: normal inspection of the chest and normal palpation of entire chest wall CHEST: Yes Symmetrical chest wall rise Resp: COMMON NORMALS: normal respiratory effort, No retractions, No use of accessory muscles and clear to auscultation bilaterally EFFORT & INSPECTION: Yes symmetric chest movement AUSCULTATION: clear to auscultation bilaterally Cardio: COMMON NORMALS: regular rate, regular rhythm, S1 normal heart sound present, S2 normal heart sound present, No gallops present (Cardio), No clicks present (Cardio), No murmurs present (Cardio) and No rub (Cardio) RATE: regular rate RHYTHM: regular rhythm HEART SOUNDS: S1 normal heart sound present and S2 normal heart sound present PERIPHERAL PULSES: radial pulses present Extremity: COMMON NORMALS: no pedal edema Neuro: COMMON NORMALS: patient oriented x3 and moves all extremities SENSORIUM/ORIENTATION: Yes oriented to person, Yes oriented to place and Yes oriented to time Data 07/27/25 00:02 07/27/25 00:02 A&P Assessment and plan 1. HFrEF (heart failure with reduced ejection fraction): 2. Coronary artery disease: 3. S/P CABG (coronary artery bypass graft): Plan: She has not had any return of chest pain symptoms, appears euvolemic. Troponin negative. Will start her on aspirin, Plavix and add Ranexa 500mg BID. Will plan to observe her overnight and possible discharge tomorrow. PDMP PDMP Reviewed: Not Reviewed Coding Level of Care Code 50870 Diagnoses HFrEF (heart failure with reduced ejection fraction) I50.20 Coronary artery disease I25.10 S/P CABG (coronary artery bypass graft) Z95.1 Time Spent (min) 35 Documented by User: Flavia Devine MD 07/27/25 18:02 Medications/Allergies Home Medications ?Medication ?Instructions ?Recorded ?Confirmed ?Last Taken ?Type atorvastatin 80 mg tablet 80 mg PO QPM 07/27/25 07/27/25 07/25/25 History bumetanide 1 mg tablet 1 mg PO BID 07/27/25 07/27/25 07/26/25 History carvedilol 6.25 mg tablet 6.25 mg PO BID 07/27/25 07/27/25 07/26/25 History empagliflozin 25 mg tablet 25 mg PO DAILY 07/27/25 07/27/25 07/26/25 History (Jardiance) fluticasone propionate 50 1 spray intranasal DAILY PRN 07/27/25 07/27/25 Unknown History mcg/actuation nasal allergies spray,suspension metformin 1,000 mg tablet 1,000 mg PO BID 07/27/25 07/27/25 07/26/25 History pantoprazole 40 mg tablet,delayed 40 mg PO DAILY PRN Acid Reflux 07/27/25 07/27/25 Unknown History release sacubitril 24 mg-valsartan 26 mg 1 tab PO BID 07/27/25 07/27/25 07/26/25 History tablet tramadol 50 mg tablet 50 mg PO Q8H PRN Pain 07/27/25 07/27/25 Unknown History Allergies Allergy/AdvReac Type Severity Reaction Status Date / Time No Known Allergies Allergy Verified 07/26/25 23:55 PFSH Acute PFSH: Medical History (Updated 07/27/25 @ 13:34 by HOSSEIN Saravia) Coronary artery disease Data 07/27/25 00:02 07/27/25 00:02 A&P Assessment and plan 1. HFrEF (heart failure with reduced ejection fraction): 80-year-old female patient with significant cardiac history, CABG and ischemic cardiomyopathy, presented with fairly atypical chest pain. She has been ruled out for acute coronary syndrome with negative cardiac troponins. Patient is euvolemic. I note the nuclear stress test revealed large size old infarct with some chiquita-infarct ischemia, the previous significant three-vessel CAD, leading to CABG. She is already on appropriate heart failure medications including sacubitril. Overall her vitals are stable. And she has been symptoms free since morning. Plan to observe her overnight. Also to re-start her on DAPT and Ranexa and to continue her current home medications. 2. Coronary artery disease: as above 3. S/P CABG (coronary artery bypass graft): as above PDMP PDMP Reviewed: Not Reviewed Coding Level of Care Code 98180 Diagnoses HFrEF (heart failure with reduced ejection fraction) I50.20 Coronary artery disease I25.10 S/P CABG (coronary artery bypass graft) Z95.1 Time Spent (min) 35
[2025-07-27 13:13] LABS: Partial Thromboplastin Time 75.6 SECONDS (23.9-36.7)
[2025-07-27] MEDS: ranolazine (12HR) 500 mg Tablet PO (17:18)
[2025-07-27 20:23] LABS: Partial Thromboplastin Time 64.1 SECONDS (23.9-36.7)
[2025-07-27] MEDS: MELATONIN 3 MG TABLET 9 MG PO (21:12)
[2025-07-28 01:57] LABS: Partial Thromboplastin Time 65.5 SECONDS (23.9-36.7)
[2025-07-28 03:54] VITALS: BP 108/60; PULSE 62; RESP 16; TEMP 36.6; O2SAT 95
[2025-07-28] MEDS: ranolazine (12HR) 500 mg Tablet PO (04:00)
[2025-07-28] MEDS: DAPAGLIFLOZIN 10 MG TABLET PO (04:01)
[2025-07-28 04:57] VITALS: PULSE 60
[2025-07-28 07:38] VITALS: BP 90/52; PULSE 93; RESP 16; TEMP 36.6; O2SAT 93
[2025-07-28 07:54] LABS: Partial Thromboplastin Time 74.2 SECONDS (23.9-36.7)
--- NOTE | 2025-07-28 07:58 | P.PN_ITS ---
Documented by User: HOSSEIN Saravia 07/28/25 11:12 Subjective 2 Subjective: She has not had any chest pain overnight, may discharge today. No further testing needed. Vitals/I&O/Wt Last Vital Signs Temp 97.9 F 07/28/25 07:38 Pulse 93 07/28/25 07:38 Resp 16 07/28/25 07:38 BP 90/52 07/28/25 07:38 Pulse Ox 93 07/28/25 07:38 O2 Del Method Room Air 07/28/25 03:54 07/27/25 07/28/25 07/28/25 22:59 06:59 14:59 Intake Total 367. / 716.283 80.5 / 716.283 Balance 367. / 716.283 80.5 / 716.283 Weight last 48 hrs Weight 141 lb Weight 135 lb Weight 125 lb Weight 125 lb Physical Exam 2 Const: COMMON NORMALS: no acute distress and patient oriented x3 GENERAL APPEARANCE: cooperative and comfortable ORIENTATION/CONSCIOUSNESS: Yes awake, Yes oriented to person, Yes oriented to place and Yes oriented to time Chest: COMMONS NORMALS: normal inspection of the chest and normal palpation of entire chest wall CHEST: Yes Symmetrical chest wall rise Resp: COMMON NORMALS: normal respiratory effort, No retractions, No use of accessory muscles and clear to auscultation bilaterally EFFORT & INSPECTION: Yes symmetric chest movement AUSCULTATION: clear to auscultation bilaterally Cardio: COMMON NORMALS: regular rate, regular rhythm, S1 normal heart sound present, S2 normal heart sound present, No gallops present (Cardio), No clicks present (Cardio), No murmurs present (Cardio) and No rub (Cardio) RATE: r egular rate RHYTHM: regular rhythm HEART SOUNDS: S1 normal heart sound present and S2 normal heart sound present PERIPHERAL PULSES: radial pulses present Extremity: COMMON NORMALS: no pedal edema Neuro: COMMON NORMALS: patient oriented x3 and moves all extremities S ENSORIUM/ORIENTATION: Yes oriented to person, Yes oriented to place and Yes oriented to time Data 07/28/25 07:49 07/28/25 07:49 A&P Assessment and plan 1. Chest pain, unspecified type: 2. Coronary artery disease: 3. S/P CABG (coronary artery bypass graft): 4. Type 2 diabetes mellitus without complication, without long-term current use of insulin: Plan: She has done well overnight with no recurrence of chest pain. She may discharge when ok with hospitalist service. PDMP PDMP Reviewed: Not Reviewed Attestations 2 Medical Necessity Statement*: dc Coding Level of Care Code 23564 Diagnoses Chest pain, unspecified type R07.9 Chest pain type: unspecified Coronary artery disease I25.10 S/P CABG (coronary artery bypass graft) Z95.1 Type 2 diabetes mellitus without complication, without long-term current use of insulin E11.9 Diabetes mellitus complication status: without complication Diabetes mellitus [employer] insulin use: without [employer]orer [employer] use Time Spent (min) 15 Documented by User: Flavia Devine MD 07/28/25 19:07 Data 07/28/25 07:49 07/28/25 07:49 A&P Assessment and plan 1. Chest pain, unspecified type: 2. Coronary artery disease: 3. S/P CABG (coronary artery bypass graft): 4. Type 2 diabetes mellitus without complication, without long-term current use of insulin: Plan: She has done well overnight with no recurrence of chest pain. No angina or heart failure symptoms. She is tolerating new adjusted medications. She may discharge when ok with hospitalist service and follow-up in the cardiology clinic. PDMP PDMP Reviewed: Not Reviewed Coding Level of Care Code 33671 Diagnoses Chest pain, unspecified type R07.9 Chest pain type: unspecified Coronary artery disease I25.10 S/P CABG (coronary artery bypass graft) Z95.1 Type 2 diabetes mellitus without complication, without long-term current use of insulin E11.9 Diabetes mellitus complication status: without complication Diabetes mellitus penitentiary insulin use: without [employer] use Time Spent (min) 15
[2025-07-28 08:18] LABS: Alanine Aminotransferase 9 U/L (0-33); Albumin Level 3.9 g/dL (3.5-5.2); Alkaline Phosphatase 82 U/L (35-105); Anion Gap 16.3 (5-19); Aspartate Amino Transferase 13 U/L (0-32); Blood Urea Nitrogen 26 mg/dL (8-23); Calcium 8.7 mg/dL (8.5-10.5); Carbon Dioxide 22 mmol/L (22-29); Chloride 102 mmol/L (98-107); Globulin 2.7 g/dL (1.3-4.6); Glucose 117 mg/dL (65-115); Osmolality Calculated 288 mOsm/kg (285-295); Potassium 4.3 mmol/L (3.5-5.1); Sodium 136 mmol/L (136-145); Total Protein 6.6 g/dL (6.6-8.7)
[2025-07-28 08:48] LABS: Hematocrit 33.3 % (36-47); Hemoglobin 10.10 g/dL (11.27-16.99); Mean Corpuscular HGB Conc 30.3 g/dL (30-55); Mean Corpuscular Hemoglobin 29.3 pg (27-33); Mean Corpuscular Volume 96.5 fl (85-98); Nucleated Red Blood Cells % 0 %; Platelet Count 171 10^3/cmm (157-399); Red Blood Count 3.45 10^6/uL (3.85-5.65); White Blood Count 4.59 10^3/uL (3.29-11.43)
--- NOTE | 2025-07-28 09:12 | P.DS_ITS ---
Discharge Providers Date of Admission: 07/27/25 03:23 Date of Discharge: July 28, 2025 Attending Provider at Admission: Ilan Fuentes MD Attending Provider at Discharge: Alberta Robin NP Primary Care Provider: Crystal Garcia Diagnoses at Discharge Discharge Diagnosis 1. HFrEF (heart failure with reduced ejection fraction): 2. Coronary artery disease: 3. S/P CABG (coronary artery bypass graft): Reason for Visit Reason for Visit: Chest pain Brief History: Admission: Treva Day is a 80 year old female with reported history significant for coronary artery disease status post CABG in 2022, HFrEF, EF 15% with AICD in place, type 2 diabetes, and hyperlipidemia, who presents with complaints of chest pain. The patient states that the chest pain began at approximately 9 PM on 07/26/2025 and was located at the central chest as well as the right breast. She describes the pain as a constant pressure type pain which was improved after taking morphine in our emergency department. 2 nitroglycerin were not helpful. There was radiation to the back and the pain peaked at a 10 out of 10 in intensity. She says that the pain experienced does remind her of her prior pain that led to her undergoing CABG procedure. Also mention occasional dizziness this past week as well as shortness of breath associated for pain. Denies any nausea or vomiting. Hospital Course Hospital Course 1. Chest pain, unspecified type: - Patient felt to be high risk for ACS - Stress test completed - Cardiology recommendations for guideline directed therapy with no planned interventions 2. Type 2 diabetes mellitus without complication, without long-term current use of insulin: - Hold home metformin, resume at discharge - Continue SSI, POC 3. HFrEF (heart failure with reduced ejection fraction): - not felt to be in exacerbation - Continue cardioprotective medications 4. Hyperlipidemia, unspecified hyperlipidemia type: - Continue home statin Patient did very well overall, had complete resolution of chest pain. Cardiac stress test reviewed, cardiology felt no new areas of ischemia noted. Cardiology asked patient to be placed on aspirin, Plavix, and added Ranexa. Patient is advised to follow-up with primary care provider in 1 to 2 days, and cardiology at the next available appointment. Patient discharges and care of her daughter, all questions and concerns addressed with the patient at the [facility] at time of discharge. Physical Exam Const: COMMON NORMALS: no acute distress and patient oriented x3 GENERAL APPEARANCE: cooperative and comfortable ORIENTATION/CONSCIOUSNESS: Yes awake, Yes oriented to person, Yes oriented to place and Yes oriented to time Chest: COMMONS NORMALS: normal inspection of the chest and normal palpation of entire chest wall CHEST: Yes Symmetrical chest wall rise Resp: COMMON NORMALS: normal respiratory effort, No retractions, No use of accessory muscles and clear to auscultation bilaterally EFFORT & INSPECTION: Yes symmetric chest movement AUSCULTATION: clear to auscultation bilaterally Cardio: COMMON NORMALS: regular rate, regular rhythm, S1 normal heart sound present, S2 normal heart sound present, No gallops present (Cardio), No clicks present (Cardio), No murmurs present (Cardio) and No rub (Cardio) RATE: regular rate RHYTHM: regular rhythm HEART SOUNDS: S1 normal heart sound present and S2 normal heart sound present PERIPHERAL PULSES: radial pulses present Extremity: COMMON NORMALS: no pedal edema Neuro: COMMON NORMALS: patient oriented x3 and moves all extremities SENSORIUM/ORIENTATION: Yes oriented to person, Yes oriented to place and Yes oriented to time Discharge Data Studies Completed and Pending Completed Studies During Hospitalization Category Date Time Status CTA thoracic abdomen [CT angio chest abd 41401/85301] Cat Scan 07/27/25 00:23 Completed Stat CXRP [XR chest 1V portable [id number]] Stat Exams 07/27/25 00:23 Completed NM dave perf SPECT r/s* [id number] Routine Nuc Med 07/27/25 04:25 Completed Pending at discharge Category Date Time Status Sestamibi Stress Test Request Routine Exams 07/28/25 06:00 Ordered CBC Auto Diff [Complete Blood Count w/Auto] AM LABS Lab 07/29/25 07:35 Ordered Comprehensive Metabolic Panel AM LABS Lab 07/29/25 07:35 Ordered PTT [Partial Thromboplastin Time] Timed Lab 07/28/25 16:30 Ordered Platelet Count Q2D Lab 07/29/25 04:00 Ordered Platelet Count Q2D Lab 07/31/25 04:00 Ordered Radiology Impressions Chest X-Ray 07/27/25 00:23 IMPRESSION: No definite acute infiltrate or effusion. Chest/Abdomen CTA 07/27/25 00:23 IMPRESSION: 1. No definite significant pulmonary embolism or right heart strain. 2. No aortic dissection. COMMENTS: 1. Consistent with the [employer]'s Incidental Findings Committee white paper (J Am Argelia Radiol 2018): Any incidental renal lesion less than 1 cm or classified as too small to characterize, or any incidental cystic renal lesion characterized as simple-appearing, is likely benign. No follow-up imaging is recommended for these lesions per consensus recommendations based on imaging criteria. 2. Consistent with the [employer]'s Incidental Findings Committee white paper (J Am Argelia Radiol 2015): In patients aged 35 years and older with an incidental thyroid nodule equal to or greater than 1.[address], MRI or extrathyroidal US, further evaluation with dedicated thyroid US is recommended for patients with normal life expectancy and without comorbidities. For smaller nodules without suspicious features, no further evaluation or follow up is recommended. Laboratory Results WBC 4.59 10^3/uL (3.29-11.43) 07/28/25 07:49 RBC 3.45 10^6/uL (3.85-5.65) L 07/28/25 07:49 Hgb 10.10 g/dL (11.27-16.99) L 07/28/25 07:49 Hct 33.3 % (36-47) L 07/28/25 07:49 MCV 96.5 fl (85-98) 07/28/25 07:49 MCH 29.3 pg (27-33) 07/28/25 07:49 MCHC 30.3 g/dL (30-55) 07/28/25 07:49 RDW 13.9 % (12.1-15.1) 07/28/25 07:49 Plt Count 171 10^3/cmm (157-399) 07/28/25 07:49 MPV 10.9 fL (7.4-10.4) H 07/28/25 07:49 Neut % (Auto) 44.7 % 07/28/25 07:49 Lymph % (Auto) 37.7 % 07/28/25 07:49 [place] % (Auto) 11.1 % 07/28/25 07:49 Eos % (Auto) 5.4 % 07/28/25 07:49 Baso % (Auto) 0.9 % 07/28/25 07:49 Neut # (Auto) 2.05 10^3/uL (1.8-7.7) 07/28/25 07:49 Lymph # (Auto) 1.7 10^3/uL (0.8-4.8) 07/28/25 07:49 [place] # (Auto) 0.5 10^3/uL (0.2-0.9) 07/28/25 07:49 Eos # (Auto) 0.3 10^3/uL (0.0-0.8) 07/28/25 07:49 Baso # (Auto) 0.0 10^3/uL (0.0-0.1) 07/28/25 07:49 Nucleated RBC % (auto) 0 % 07/28/25 07:49 Nucleated RBCs # 0.0 /100WBC 07/28/25 07:49 PT 13.30 SECONDS (12.1-14.9) 07/27/25 00:02 INR 0.94 (0.8-1.2) 07/27/25 00:02 APTT 74.2 SECONDS (23.9-36.7) H 07/28/25 07:16 Sodium 136 mmol/L (136-145) 07/28/25 07:49 Potassium 4.3 mmol/L (3.5-5.1) 07/28/25 07:49 Chloride 102 mmol/L (98-107) 07/28/25 07:49 Carbon Dioxide 22 mmol/L (22-29) 07/28/25 07:49 Anion Gap 16.3 (5-19) 07/28/25 07:49 BUN 26 mg/dL (8-23) H 07/28/25 07:49 Creatinine 1.3 mg/dL (0.5-0.9) H 07/28/25 07:49 GFR Calculation Not Reportable 07/28/25 07:49 Glucose 117 mg/dL (65-115) H 07/28/25 07:49 POC Glucose 126 mg/dL (70-110) H 07/28/25 06:01 Calculated Osmolality 288 mOsm/kg (285-295) 07/28/25 07:49 Lactic Acid 0.9 mmol/L (0.5-2.2) 07/27/25 00:02 Calcium 8.7 mg/dL (8.5-10.5) 07/28/25 07:49 Phosphorus 3.8 mg/dL (2.5-4.5) 07/27/25 00:02 Magnesium 1.9 mg/dL (1.7-2.3) 07/27/25 00:02 Total Bilirubin 0.2 mg/dL (0.15-1.2) 07/28/25 07:49 AST 13 U/L (0-32) 07/28/25 07:49 ALT 9 U/L (0-33) 07/28/25 07:49 Alkaline Phosphatase 82 U/L (35-105) 07/28/25 07:49 Troponin T Baseline 9 ng/L (0-10) 07/27/25 00:02 Troponin T 120 Minute 9.61 ng/L (0-10) 07/27/25 01:59 Delta Troponin T 0.61 ABS# (0-10) 07/27/25 01:59 C-React Prot High Sens 0.370 mg/dL (0.0-0.3) H 07/27/25 00:02 NT-Pro-B Natriuret Pep 1106 pg/mL (0-450) H 07/27/25 00:02 Total Protein 6.6 g/dL (6.6-8.7) 07/28/25 07:49 Albumin 3.9 g/dL (3.5-5.2) 07/28/25 07:49 Globulin 2.7 g/dL (1.3-4.6) 07/28/25 07:49 Lipase 82 U/L (13-60) H 07/27/25 00:02 Vitals Last Vital Signs Temp 97.9 F 07/28/25 07:38 Pulse 93 07/28/25 07:38 Resp 16 07/28/25 07:38 BP 90/52 07/28/25 07:38 Pulse Ox 93 07/28/25 07:38 O2 Del Method Room Air 07/28/25 03:54 Discharge Plan Discharge Patient Disposition: Home Condition: Stable Prescriptions: New clopidogrel 75 mg Tablet 75 mg PO DAILY 90 Days Qty: 90 0RF aspirin 81 mg Tablet,Delayed Release (Dr/Ec) 81 mg PO DAILY 90 Days Qty: 90 0RF ranolazine 500 mg Tablet Extended Release 12 Hr 500 mg PO BID 60 Days Qty: 120 0RF Continued atorvastatin 80 mg tablet 80 mg PO QPM carvedilol 6.25 mg tablet 6.25 mg PO BID tramadol 50 mg tablet 50 mg PO Q8H PRN (Reason: Pain) pantoprazole 40 mg tablet,delayed release (DR/EC) 40 mg PO DAILY PRN (Reason: Acid Reflux) metformin 1,000 mg tablet 1,000 mg PO BID bumetanide 1 mg tablet 1 mg PO BID fluticasone propionate 50 mcg/actuation spray,suspension 1 spray INTRANASAL DAILY PRN (Reason: allergies) Jardiance 25 mg tablet 25 mg PO DAILY Held sacubitril-valsartan 24-26 mg tablet 1 tab PO BID Hold Instructions: Resume on 08/03/25. Please review this medication with your primary care provider and keep a blood pressure log before resuming this medication due to your low blood pressures. Discharge Order = DC NOW: Discharge Order (Routine); Ordered 07/28/25 Ordered By: Alberta Robin Referrals: Crystal Garcia [Primary Care Provider, PSYCH NURSE] - 08/03/25 9:30 am Discharge Diet: Cardiac Discharge Activity: Resume usual activity Patient Instructions: Aspirin (By mouth), Clopidogrel (By mouth), Ranolazine (By mouth), CHF Stoplight, Opioid Safety, Patient Portal & Tanner Instructions Discharge Attestations Time Spent in Discharge Care*: greater than 30 min Quality Metrics Clinical Quality Measures [ No reported AMI, CVA or VTE this stay] Coding Level of Care Code 36965 Diagnoses HFrEF (heart failure with reduced ejection fraction) I50.20 Coronary artery disease I25.10 S/P CABG (coronary artery bypass graft) Z95.1
--- NOTE | 2025-07-28 10:39 | PC.CHAP ---
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 [] Patient/Family/Request visit [] Outpatient visit [] Follow-up visit [] Physician referral [] Code/Alert [x] Routine visit [] Staff referral [] Actively dying [] Patient sleeping [x] Family support [] [] Out of room [] Palliative care [] [] Receiving care in room [] Pre-surgical visit [] Trauma [] Long length of stay [] ICU visit [] Other: Relational/Emotional Strength [x] Patient feels connected with others/family/visitors/staff [] Distress [] Loneliness/isolation [] Abandonment Spirituality of Patient [x] Person of Ayde [] Attends Yazidism of their Ayde [x] Believes in Prayer [] Reads Bible or Taoism materials [] There are Spiritual issues to be addressed Vendor Management Associate Interventions [x] Prayer [x] Active listening [] Non-anxious presence [x] Spiritual/emotional support [] Crisis/trauma care [] Spiritual counseling [] Bereavement support [] Provided bereavement packet [] Provided Bible/devotional materials [] Provided toy/stuffed animal, coloring book to patient or family member [] Provided Communion [] Anointing/[place] [] Salvation [x] Completed spiritual assessment [] Other: Impact on Illness or Injury [] Angry [] Fearful [] Anxious [] Often cries [] Exhaustion [] Unable to work [] Unable to attend moravian [] Unable to walk/stand [] Unable to read [] Unable to drive [] Unable to eat/drink [] Unable to sleep [] Unable to be with family [] Patient intubated [] Other: Summary Time spent with patient 5 min
--- NOTE | 2025-07-28 10:43 | PC.NURSE ---
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
[2025-07-28 11:41] VITALS: BP 111/68; PULSE 72; RESP 18; TEMP 36.6
[2025-07-28 12:29] VITALS: BP 111/68; PULSE 72; O2SAT 95
== END 2025-07-28 12:30 | disposition home or self-care (01) ==
LOC: ER 07-27 02:14 → MEDSURG 07-27 04:22
PROVIDERS: Admitting Provider Family Medicine; Emergency Provider Student in an Organized Health Care Education/Training Program; PCP Nurse Practitioner Family; Visit Provider Registered Nurse
DX: I50.20 Unspecified systolic (congestive) heart failure (principal); I25.10 Atherosclerotic heart disease of native coronary artery without angina pectoris; Z95.1 Presence of aortocoronary bypass graft; Z79.84 Long term (current) use of oral hypoglycemic drugs; K21.9 Gastro-esophageal reflux disease without esophagitis; E11.9 Type 2 diabetes mellitus without complications; E78.5 Hyperlipidemia, unspecified; Z87.891 Personal history of nicotine dependence
CPT/HCPCS: 36415; 36416; 71045; 71275; 74175; 78452; 80053; 82962; 83605; 83690; 83735; 83880; 84100; 84484; 85025; 85610; 85730; 86141; 93005; 93017; 96365; 96375; 99285; A9500; G0378; J1644; J2270; J2405; J2785; J9999